=== PATIENT | female | born 1940 | race Native Hawaiian/Other Pacific Islander ===

== ENCOUNTER 2018-01-27 16:09 | Inpatient (IN) | payer MEDICARE, MEDICAID ==
[2018-01-27 20:04] LABS: BASO % 0.2 % (0.0-2.0); EOS % 0.1 % (0.0-4.0); HEMOGLOBIN 13.9 g/dL (11.0-16.0); LYMPH # 1.6 K/uL (1.0-4.3); LYMPH % 13.6 % (20.0-40.0); MEAN CELL VOLUME 84.2 fL (81.0-99.0); MEAN CORPUSCULAR HEMOGLOBIN 27.5 pg (27.0-31.0); MEAN CORPUSCULAR HGB CONC 32.7 g/dL (33.0-37.0); MEAN PLATELET VOLUME 7.9 fL (7.2-11.7); MONO # 0.4 K/uL (0.0-0.8); MONO % 3.3 % (0.0-10.0); NEUT # 9.4 K/uL (1.8-7.0); NEUT % 82.8 % (50.0-75.0); NRBC % 0.1 % (0.0-2.0); RBC 5.06 Mil/uL (3.80-5.20); RED CELL DISTRIBUTION WIDTH 13.6 % (11.5-14.5); WHITE BLOOD COUNT 11.4 K/uL (4.8-10.8)
[2018-01-27 20:12] LABS: ALB/GLOB RATIO 1.1 (1.0-2.1); ALBUMIN 4.4 g/dL (3.5-5.0); ALT/SGPT 34 U/L (9-52); AST/SGOT 32 U/L (14-36); BLOOD UREA NITROGEN 16 mg/dL (7-17); CALCIUM 10.7 mg/dl (8.6-10.4); GFR AFRICAN-AMERICAN 44; GFR NON-AFRICAN AMERICAN 36; INR 0.9; PROTHROMBIN TIME 10.5 SECONDS (9.7-12.2)
[2018-01-27] MEDS ORDERED: Azithromycin 500 MG in Sodium Chloride 0.9% 250 ML IV STA (20:53)
[2018-01-27] MEDS ORDERED: cefTRIAXone IV 1 gm in Dextros 50 ML IV ONE (20:53)
--- NOTE | 2018-01-27 20:54 | C.PDOC ---
History Of Present Illness 77yo female, referred to ER by Dr. Mick Benavidez for evaluation of shortness of breath and non-productive cough for the past week. She also reports associated subjective fever. No other complaints. Time Seen by Provider: 01/27/18 19:05 Chief Complaint (Nursing): Shortness Of Breath History Per: Patient History/Exam Limitations: no limitations Onset/Duration Of Symptoms: Days Current Symptoms Are (Timing): Still Present Past Medical History Reviewed: Historical Data, Nursing Documentation, Vital Signs Vital Signs: Last Vital Signs Temp 97.5 F L 01/27/18 16:36 Pulse 96 H 01/27/18 16:36 Resp 24 01/27/18 18:20 BP 150/71 01/27/18 16:36 Pulse Ox 94 L 01/27/18 23:09 - Medical History PMH: HTN Surgical History: No Surg Hx Family History: States: No Known Family Hx - Social History Hx Alcohol Use: No Hx Substance Use: No Review Of Systems Except As Marked, All Systems Reviewed And Found Negative. Constitutional: Positive for: Fever (subjective) Respiratory: Positive for: Cough, Shortness of Breath. Negative for: Sputum Physical Exam - Physical Exam Appears: Non-toxic Skin: Normal Color Head: Atraumatic, Normacephalic Eye(s): bilateral: Normal Inspection Neck: Normal ROM, Supple Cardiovascular: Rhythm Regular Respiratory: Rhonchi (scattered), Other (increased breath sounds bilaterally) Gastrointestinal/Abdominal: Normal Exam Extremity: Normal ROM, No Pedal Edema Neurological/Psych: Oriented x3, Normal Speech, Normal Cognition ED Course And Treatment - Laboratory Results Result Diagrams: 01/27/18 19:52 01/27/18 19:52 Lab Interpretation: Abnormal ECG: Interpreted By Mt ECG Rhythm: Sinus Rhythm ECG Interpretation: Normal Rate From EC O2 Sat by Pulse Oximetry: 94 Pulse Ox Interpretation: Abnormal - Radiology CXR: Interpreted by Mt CXR Interpretation: Yes: Infiltrates (+ patchy) Reevaluation Time: 20:54 Reassessment Condition: Improved - Physician Consult Information Outcome Of Conversation: 1930, 2100 d/w Dr. Mick Benavidez, ok to admit. Medical Decision Making Medical Decision Making: d-dimer acceptably low consider advance age of 77, and c/w pna and not PE Prior studies reviewed from September 2017 and shows normal perfusion study with 85% injection fraction. Disposition Doctor Will See Patient In The: Hospital Counseled Patient/Family Regarding: Studies Performed, Diagnosis - Disposition Disposition: HOSPITALIZED Disposition Time: 20:55 Condition: GOOD - Clinical Impression Clinical Impression: Pneumonia - Scribe Statement The provider has reviewed the documentation as recorded by the Scribe (Yanet Posada) Provider Attestation: All medical record entries made by the Brigidibe were at my direction and personally dictated by me. I have reviewed the chart and agree that the record accurately reflects my personal performance of the history, physical exam, medical decision making, and the department course for this patient. I have also personally directed, reviewed, and agree with the discharge instructions and disposition.
[2018-01-27] MEDS ORDERED: cefTRIAXone IV 1 gm in Dextros 50 ML IVPB ONE (22:53)
--- NOTE | 2018-01-28 09:03 | RAD ---
PROCEDURE: CHEST RADIOGRAPH, 1 VIEW HISTORY: Shortness of breath COMPARISON: None available. FINDINGS: LUNGS: There is there are low lung volumes and interstitial thickening predominantly in the lower lobes. There is bibasilar atelectasis the PLEURA: No pneumothorax or pleural fluid seen. CARDIOVASCULAR: Normal. OSSEOUS STRUCTURES: No significant abnormalities. VISUALIZED UPPER ABDOMEN: Normal. OTHER FINDINGS: None. IMPRESSION: Low lung volumes and interstitial thickening in the lower lobes could represent interstitial fibrosis however interstitial pneumonitis/edema is also a consideration. Follow-up is advised. No focal consolidation.
[2018-01-28] MEDS: cefTRIAXone IV 1 gm in Dextros 50 ML IVPB SCH (10:45)
[2018-01-28] MEDS: Levothyroxine 75 MCG TAB PO SCH (10:45)
--- NOTE | 2018-01-28 12:03 | CT ---
PROCEDURE: CT Chest without contrast HISTORY: pulmonary fibrosis,pneumonia COMPARISON: Plain radiographs from 01/27/2018. TECHNIQUE: Contiguous axial images were obtained through the chest without intravenous contrast enhancement. Sagittal and coronal reconstructions were performed. Radiation dose (DLP): 222.15 mGy-cm. This CT exam was performed using one or more of the following dose reduction techniques: Automated exposure control, adjustment of the mA and/or kV according to patient size, and/or use of iterative reconstruction technique. FINDINGS: LUNGS: There is severe paraseptal emphysema in the lungs with upper lobe predominance. There is also patchy ground-glass attenuation in both lungs. There is mild interlobular septal thickening. There are peripheral reticular margins particularly in the lower lobes and mild honeycombing in the lung bases. There is also architectural distortion in the lungs. There is a triangular subpleural focal consolidation in the lateral lingula. MEDIASTINUM: The aorta is normal in caliber. There is mild enlargement of the pulmonary trunk. The heart is normal in size. No pericardial effusion. There are subcentimeter mediastinal lymph nodes, likely reactive. PLEURA: No pleural fluid. No pneumothorax. BONES: No fracture. No destructive lesion. Within normal limits for the patient's age. UPPER ABDOMEN: Both adrenal glands are normal in size. The right kidney is atrophic. OTHER FINDINGS: None. IMPRESSION: 1. Wedge-shaped subpleural consolidation in the lateral lingula most compatible with pneumonia. Follow-up to resolution is advised. 2. Findings are most compatible with interstitial pulmonary fibrosis superimposed on a background of COPD. 3. Patchy ground-glass attenuation in the lungs may represent nonspecific infection/ inflammation, alveolar fibrosis or alveolar pulmonary edema. 4. Mild pulmonary hypertension.
[2018-01-29] MEDS ORDERED: guaiFENesin DM 200 mg-20 mg/10 ml UD PO STA (02:06)
[2018-01-29] MEDS: Levothyroxine 75 MCG TAB PO SCH (05:48)
--- NOTE | 2018-01-29 06:49 | HP ---
HISTORY OF PRESENT ILLNESS: A 77-year-old female who was admitted on 01/27/2018. She was referred by me and sent to the ER after seen in the office where she was found to be tachypneic, short of breath, and in mild respiratory distress. She was sent to the ER and care was discussed with the patient's family and ER physician. She was found to have pneumonia. She also has a history of severe interstitial lung disease, biopsy proven in the many years in the past. She has been seen in followup by Dr. Rueda. She has a history of hypertension and osteoporosis. PAST MEDICAL HISTORY: Admitted in the past with COPD. Has been followed by Dr. Rueda. FAMILY HISTORY: Negative for premature coronary artery disease. Lives with her . PERSONAL HISTORY: Does not smoke. Does not drink. ALLERGIES: DENIED. REVIEW OF SYSTEMS: Mild shortness of breath, cough. No chest pains. No hemoptysis. No joint pains. History of occasional back pains. No visual disturbances. No fever. No chills. No urinary complaints. No history of angina or documented [place]. No history of TIAs or CVS. No urinary complaints. No history of depression. PHYSICAL EXAMINATION GENERAL: Shows elderly female, chronically sick looking in mild respiratory distress. VITAL SIGNS: Blood pressure is 150/70, heart rate of 102 regular, respiratory rate of 24, and temperature of 97.5. HEENT: Head is normocephalic. Eyes, no pallor, no icterus. NECK: Supple. LUNGS: Shows scattered rhonchi all over the lung chaidez. HEART: Heart sounds are distended. Tachycardiac. No definite murmurs or gallops. ABDOMEN: Soft. EXTREMITIES: Unremarkable. Distal pulses are intact. NEUROLOGICAL: No focal sign. The patient is awake, alert, and oriented x3. LABORATORY DATA: White count is 11.4. DIAGNOSTIC DATA: Chest x-ray shows patchy infiltrates. CT also shows the same patchy infiltrates. ASSESSMENT: A 77-year-old female with a history of pneumonitis. Severe chronic obstructive pulmonary disease and interstitial lung disease, pulmonary fibrosis. PLAN: Pulmonary followup. ID consultation. Blood cultures. Prognosis remains poor. Mick Benavidez MD
--- NOTE | 2018-01-29 07:23 | CON ---
DATE: HISTORY OF PRESENT ILLNESS: Ms. Reynaga is 77-year-old female with history of pulmonary fibrosis, COPD for several years. The patient came to hospital with shortness of breath, weakness, fatigue, which has been worsening for the last few months. The patient was tried on several medications for pulmonary fibrosis without significant results. The patient . PHYSICAL EXAMINATION: GENERAL: The patient is awake, alert, and oriented. VITAL SIGNS: Temperature 98 and pulse 90. HEENT: Within normal limits. NECK: Supple. CHEST: Symmetrical. Decreased air entry. HEART: Regular. ABDOMEN: Soft. EXTREMITIES: No edema. LABORATORY DATA: Chest x-ray bilateral chronic infiltrate, possible superimposed left-sided pneumonia. ASSESSMENT AND PLAN: The patient will get bronchodilators, antibiotics, IV steroids, and will start . Get a CT of the chest. Emerita Rueda MD
--- NOTE | 2018-01-29 10:34 | CP.PCM.PN ---
Subjective - Date & Time of Evaluation Date of Evaluation: 01/29/18 Time of Evaluation: 10:33 - Subjective Subjective: sob +,cough ++. Objective - Vital Signs/Intake and Output Vital Signs (last 24 hours): Temp Pulse Resp BP Pulse Ox 97.7 F 88 20 143/75 95 01/29/18 09:08 01/29/18 09:08 01/29/18 09:08 01/29/18 09:08 01/29/18 09:08 - Medications Medications: Current Medications Amlodipine Besylate (Norvasc) 5 mg PO DAILY [facility] Last Admin: 01/28/18 10:45 Dose: 5 mg Heparin Sodium (Porcine) (Heparin) 5,000 units SC Q12 [facility] Last Admin: 01/28/18 22:10 Dose: 5,000 units Ceftriaxone Sodium (Rocephin Iv 1 Gm Duplex) 50 mls @ 100 mls/hr IVPB DAILY [facility] Last Admin: 01/28/18 10:45 Dose: 100 mls/hr Azithromycin 500 mg/ Sodium (Chloride) 250 mls @ 250 mls/hr IVPB DAILY [facility] Levothyroxine Sodium (Synthroid) 75 mcg PO DAILY@0630 [facility] Last Admin: 01/29/18 05:48 Dose: 75 mcg Pneumococcal Polyvalent Vaccine (Pneumovax 23 Vaccine) 0.5 ml IM .ONCE ONE Stop: 01/30/18 10:01 Prednisone (Prednisone Tab) 10 mg PO BID [facility] Rosuvastatin Calcium (Crestor) 5 mg PO DAILY [facility] Last Admin: 01/28/18 10:00 Dose: Not Given Fluticasone/Salmeterol (Advair Diskus 500/50) 1 puff INH RQ12 [facility] - Labs Labs: 01/27/18 19:52 01/27/18 19:52 PT 10.5 SECONDS (9.7-12.2) 01/27/18 19:52 INR 0.9 01/27/18 19:52 APTT 28 SECONDS (21-34) 01/27/18 19:52 - Constitutional Appears: No Acute Distress, Chronically Ill - Eye Exam Eye Exam: Normal appearance - Neck Exam Neck Exam: Normal Inspection - Respiratory Exam Respiratory Exam: Rhonchi - Cardiovascular Exam Cardiovascular Exam: REGULAR RHYTHM - GI/Abdominal Exam GI & Abdominal Exam: Soft - Extremities Exam Extremities Exam: absent: Pedal Edema - Neurological Exam Neurological Exam: Alert, Oriented x3 Assessment and Plan - Assessment and Plan (Free Text) Assessment: pneumonia,seen by dr [email or web address].
--- NOTE | 2018-01-29 10:43 | CP.PCM.CON ---
History of Present Illness - History of Present Illness History of Present Illness: Pulmonary consult; covering Dr Mcintosh Past Patient History - Past Social History Smoking Status: Never Smoked - CARDIAC Hx Cardiac Disorders: Yes Hx Hypertension: Yes - PULMONARY Hx Respiratory Disorders: No - NEUROLOGICAL Hx Neurological Disorder: No - HEENT Hx HEENT Problems: No - RENAL Hx Chronic Kidney Disease: No - ENDOCRINE/METABOLIC Hx Endocrine Disorders: Yes Hx Hypothyroidism: Yes - HEMATOLOGICAL/ONCOLOGICAL Hx Blood Disorders: No - INTEGUMENTARY Hx Dermatological Problems: No - MUSCULOSKELETAL/RHEUMATOLOGICAL Hx Musculoskeletal Disorders: No Hx Falls: No - GASTROINTESTINAL Hx Gastrointestinal Disorders: No - GENITOURINARY/GYNECOLOGICAL Hx Genitourinary Disorders: No - PSYCHIATRIC Hx Substance Use: No - SURGICAL HISTORY Hx Surgeries: No - ANESTHESIA Hx Anesthesia: No Hx Anesthesia Reactions: No Hx Malignant Hyperthermia: No Has any member of the family had a problem w/ anesthesia?: No Meds Allergies/Adverse Reactions: Allergies Allergy/AdvReac Type Severity Reaction Status Date / Time No Known Allergies Allergy Verified 01/27/18 16:39 - Medications Medications: Current Medications Amlodipine Besylate (Norvasc) 5 mg PO DAILY [facility] Last Admin: 01/28/18 10:45 Dose: 5 mg Heparin Sodium (Porcine) (Heparin) 5,000 units SC Q12 [facility] Last Admin: 01/28/18 22:10 Dose: 5,000 units Ceftriaxone Sodium (Rocephin Iv 1 Gm Duplex) 50 mls @ 100 mls/hr IVPB DAILY [facility] Last Admin: 01/28/18 10:45 Dose: 100 mls/hr Azithromycin 500 mg/ Sodium (Chloride) 250 mls @ 250 mls/hr IVPB DAILY [facility] Levothyroxine Sodium (Synthroid) 75 mcg PO DAILY@0630 [facility] Last Admin: 01/29/18 05:48 Dose: 75 mcg Pneumococcal Polyvalent Vaccine (Pneumovax 23 Vaccine) 0.5 ml IM .ONCE ONE Stop: 01/30/18 10:01 Prednisone (Prednisone Tab) 10 mg PO BID [facility] Rosuvastatin Calcium (Crestor) 5 mg PO DAILY [facility] Last Admin: 01/28/18 10:00 Dose: Not Given Fluticasone/Salmeterol (Advair Diskus 500/50) 1 puff INH RQ12 [facility] Results - Vital Signs Recent Vital Signs: Last Vital Signs Temp 97.7 F 02/28/18 09:08 Pulse 88 01/29/18 09:08 Resp 20 01/29/18 09:08 BP 143/75 01/29/18 09:08 Pulse Ox 95 01/29/18 09:08 - Labs Result Diagrams: 01/27/18 19:52 01/27/18 19:52
[2018-01-29] MEDS: Azithromycin 500 MG in Sodium Chloride 0.9% 250 ML IVPB SCH (11:04)
[2018-01-29] MEDS: cefTRIAXone IV 1 gm in Dextros 50 ML IVPB SCH (11:14)
--- NOTE | 2018-01-29 11:32 | RAD ---
HISTORY: COMPARISON: CT chest without contrast from 01/28/2018 TECHNIQUE: Chest PA and lateral FINDINGS: LINES AND TUBES: None. LUNG AND PLEURA: The lungs are well inflated. Again seen is diffuse interstitial thickening. There is emphysema in the upper lobes. There is persistent consolidation in the left mid lung. No pleural effusions or pneumothorax. HEART AND MEDIASTINUM: The heart is not enlarged. The hilar and mediastinal contours are within normal limits. SKELETAL STRUCTURES: The bony structures are within normal limits for the patient's age. VISUALIZED UPPER ABDOMEN: Normal. OTHER FINDINGS: None. IMPRESSION: No change in consolidation in the left mid lung. Diffuse interstitial fibrosis superimposed on a background of COPD.
--- NOTE | 2018-01-29 12:15 | CP.PCM.CON ---
History of Present Illness - History of Present Illness History of Present Illness: 77yo female, referred to ER by Dr. Mick Benavidez for evaluation of shortness of breath and non-productive cough for the past week. Past Patient History - Past Social History Smoking Status: Never Smoked - CARDIAC Hx Cardiac Disorders: Yes Hx Hypertension: Yes - PULMONARY Hx Respiratory Disorders: No - NEUROLOGICAL Hx Neurological Disorder: No - HEENT Hx HEENT Problems: No - RENAL Hx Chronic Kidney Disease: No - ENDOCRINE/METABOLIC Hx Endocrine Disorders: Yes Hx Hypothyroidism: Yes - HEMATOLOGICAL/ONCOLOGICAL Hx Blood Disorders: No - INTEGUMENTARY Hx Dermatological Problems: No - MUSCULOSKELETAL/RHEUMATOLOGICAL Hx Musculoskeletal Disorders: No Hx Falls: No - GASTROINTESTINAL Hx Gastrointestinal Disorders: No - GENITOURINARY/GYNECOLOGICAL Hx Genitourinary Disorders: No - PSYCHIATRIC Hx Substance Use: No - SURGICAL HISTORY Hx Surgeries: No - ANESTHESIA Hx Anesthesia: No Hx Anesthesia Reactions: No Hx Malignant Hyperthermia: No Has any member of the family had a problem w/ anesthesia?: No Meds Allergies/Adverse Reactions: Allergies Allergy/AdvReac Type Severity Reaction Status Date / Time No Known Allergies Allergy Verified 01/27/18 16:39 - Medications Medications: Current Medications Amlodipine Besylate (Norvasc) 5 mg PO DAILY [facility] Last Admin: 01/29/18 11:01 Dose: 5 mg Heparin Sodium (Porcine) (Heparin) 5,000 units SC Q12 [facility] Last Admin: 01/29/18 11:02 Dose: 5,000 units Ceftriaxone Sodium (Rocephin Iv 1 Gm Duplex) 50 mls @ 100 mls/hr IVPB DAILY [facility] Last Admin: 01/29/18 11:14 Dose: 100 mls/hr Azithromycin 500 mg/ Sodium (Chloride) 250 mls @ 250 mls/hr IVPB DAILY [facility] Last Admin: 01/29/18 11:04 Dose: 250 mls/hr Levothyroxine Sodium (Synthroid) 75 mcg PO DAILY@0630 [facility] Last Admin: 01/29/18 05:48 Dose: 75 mcg Pneumococcal Polyvalent Vaccine (Pneumovax 23 Vaccine) 0.5 ml IM .ONCE ONE Stop: 01/30/18 10:01 Prednisone (Prednisone Tab) 10 mg PO BID [facility] Last Admin: 01/29/18 11:01 Dose: 10 mg Rosuvastatin Calcium (Crestor) 5 mg PO DAILY [facility] Last Admin: 01/29/18 11:00 Dose: Not Given Fluticasone/Salmeterol (Advair Diskus 500/50) 1 puff INH RQ12 [facility] Results - Vital Signs Recent Vital Signs: Last Vital Signs Temp 97.7 F 01/29/18 09:08 Pulse 88 01/29/18 09:08 Resp 20 01/29/18 09:08 BP 143/75 01/29/18 09:08 Pulse Ox 95 01/29/18 09:08 - Labs Result Diagrams: 01/27/18 19:52 01/27/18 19:52
[2018-01-29] MEDS: Fluticasone-Salmeterol 500-50mcg Diskus INH SCH ×2 (13:27→20:25)
--- NOTE | 2018-01-29 19:03 | CP.PCM.CON ---
History of Present Illness - History of Present Illness History of Present Illness: 77yo female, referred to ER by Dr. Mick Benavidez for evaluation of shortness of breath and non-productive cough for the past week. Failed out pt rx cxr + for wedge shaped infiltrate some ground glass opacities cultures , serologies ordered Dr Mcintosh on board cont iv antibiotics Review of Systems - Constitutional Constitutional: As Per HPI - EENT Eyes: absent: As Per HPI, Blind Spots, Blurred Vision, Change in Vision, Decreased Night Vision, Diplopia, Discharge, Dry Eye, Exophthalmos, Floaters, Irritation, Itchy Eyes, Loss of Peripheral Vision, Pain, Photophobia, Requires Corrective Lenses, Sees Flashes, Spots in Vision, Tunnel Vision, Other Visual Disturbances, Loss of Vision, Other Ears: absent: As Per HPI, Decreased Hearing, Ear Discharge, Ear Pain, Tinnitus, Abnormal Hearing, Disequilibrium, Dizziness, Other Nose/Mouth/Throat: absent: As Per HPI, Epistaxis, Nasal Congestion, Nasal Discharge, Nasal Obstruction, Nasal Trauma, Nose Pain, Post Nasal Drip, Sinus Pain, Sinus Pressure, Bleeding Gums, Change in Voice, Dental Pain, Dry Mouth, Dysphagia, Halitosis, Hoarsness, Lip Swelling, Mouth Lesions, Mouth Pain, Odynophagia, Sore Throat, Throat Swelling, Tongue Swelling, Facial Pain, Neck Pain, Neck Mass, Other - Cardiovascular Cardiovascular: absent: As Per HPI, Acrocyanosis, Chest Pain, Chest Pain at Rest , Chest Pain with Activity, Claudication, Diaphoresis, Dyspnea, Dyspnea on Exertion, Edema, Irregular Heart Rhythm, Pain Radiating to Arm/Neck/Jaw, Leg Edema, Leg Ulcers, Lightheadedness, Orthopnea, Palpitations, Paroxysmal Nocturnal Dyspnea, Pedal Edema, Radiating Pain, Rapid Heart Rate, Slow Heart Rate, Syncope, Other - Respiratory Respiratory: As Per HPI, Cough, Dyspnea, Dyspnea on Exertion. absent: Hemoptysis - Gastrointestinal Gastrointestinal: absent: As Per HPI, Abdominal Pain, Belching, Bloating, Change in Bowel Habits, Change in Stool Character, Coffee Ground Emesis, Constipation, Cramping, Diarrhea, Dyspepsia, Dysphagia, Early Satiety, Excessive Flatus, Fecal Incontinence, Heartburn, Hematemesis, Hematochezia, Loose Stools, Melena, Nausea, Odynophagia, Temesmus, Vomiting, Other - Genitourinary Genitourinary: absent: As Per HPI, Change in Urinary Stream, Difficulty Urinating, Dysuria, Flank Pain, Hematuria, Pyuria, Nocturia, Urinary Incontinence, Urinary Frequency, Urinary Hesitance, Urinary Urgency, Voiding Freq/Small Amts, Freq UTI, Hx Renal/Bladder Calculi, Hx /Renal Surgery, Bladder Distension, Other - Reproductive: Female Reproductive:Female: absent: As Per HPI, Amenorrhea, Amenorrhea/ Control, Currently Menstual, Cycle <21 Days, Cycle >35 Days, Cycle Variable, Menses 1-7 Days, Menses >/= 8 Days, Menses Variable, Cycle > 4 Weeks Between, No Menses for 6 Months, Heavy Menses, Light Menses, Normal Menses, Spotting Between Cycles , S/P Hysterectomy, Menopausal, Post Menopausal, Premenarche, Abnormal Vaginal Bleeding, Dysmenorrhea, Dyspareunia, Genital Lesions, Genital Pruritis, Pelvic Pain, Prolapse Symptoms, Sexual Dysfunction, Vaginal Discharge, Vaginal Dryness , Vaginal Odor, Vaginal Pruritis, Other - Menstruation Menstruation: absent: As Per HPI, Amenorrhea, Amenorrhea/ Control, Currently Menstual, Cycle <21 Days, Cycle >35 Days, Cycle Variable, Menses 1-7 Days, Menses >/= 8 Days, Menses Variable, Cycle > 4 Weeks Between, No Menses for 6 Months, Heavy Menses, Light Menses, Normal Menses, Spotting Between Cycles , S/P Hysterectomy, Menopausal, Post Menopausal, Premenarche, Abnormal Vaginal Bleeding, Dysmenorrhea, Other - Musculoskeletal Musculoskeletal: absent: As Per HPI, Abnormal Gait, Arthralgias, Atrophy, Back Pain, Deformity, Joint Swelling, Limited Range of Motion, Loss of Height, Muscle Cramps, Muscle Weakness, Myalgias, Neck Pain, Numbness, Radiating Pain into Limb, Stiffness, Tingling, Other - Integumentary Integumentary: absent: As Per HPI, Acne, Alopecia, Bleeding Lesions, Change in Hair, Change in Nails, Change in Pigmentation, Changing Lesions, Dry Skin, Erythema, Furuncle, Hirsutism, Lesions, New Lesions, Non-Healing Lesions, Photosensitivity, Pruritus, Rash, Skin Pain, Skin Ulcer, Sores, Striae, Swelling , Unusual Bruising, Wounds, Jaundice, Other - Neurological Neurological: absent: As Per HPI, Abnormal Gait, Abnormal Hearing, Abnormal Movements, Abnormal Speech, Behavioral Changes, Burning Sensations, Confusion, Convulsions, Disequilibrium, Dizziness, Numbness, Focal Weakness, Frequent Falls , Headaches, Lack of Coordination, Loss of Vision, Memory Loss, Paresthesias, Radicular Pain, Restless Legs, Sensory Deficit, Syncope, Tingling, Tremor, Vertigo, Weakness, Other Visual Disturbances, Other - Psychiatric Psychiatric: absent: As Per HPI, Abnormal Sleep Pattern, Anhedonia, Anxiety, Auditory Hallucinations, Behavioral Changes, Change in Appetite, Change in Libido, Confusion, Depression, Difficulty Concentrating, Hallucinations, Homicidal Ideation, Hopelessness, Irritability, Memory Loss, Mood Swings, Panic Attacks, Paranoia, Suicidal Ideation, Visual Hallucinations, Tactile Hallucinations, Other - Endocrine Endocrine: absent: As Per HPI, Change in Body Appearance, Change in Libido, Cold Intolorance, Deepening of Voice, Excessive Sweating, Fatigue, Flushing, Heat Intolorance, Increase in Ring/Shoe/Hat Size, Palpitations, Polydipsia, Polyphagia, Polyuria, Other - Hematologic/Lymphatic Hematologic: absent: As Per HPI, Easy Bleeding, Easy Bruising, Lymphadenopathy, Other Past Patient History - Past Social History Smoking Status: Never Smoked - CARDIAC Hx Cardiac Disorders: Yes Hx Hypertension: Yes - PULMONARY Hx Respiratory Disorders: No - NEUROLOGICAL Hx Neurological Disorder: No - HEENT Hx HEENT Problems: No - RENAL Hx Chronic Kidney Disease: No - ENDOCRINE/METABOLIC Hx Endocrine Disorders: Yes Hx Hypothyroidism: Yes - HEMATOLOGICAL/ONCOLOGICAL Hx Blood Disorders: No - INTEGUMENTARY Hx Dermatological Problems: No - MUSCULOSKELETAL/RHEUMATOLOGICAL Hx Musculoskeletal Disorders: No Hx Falls: No - GASTROINTESTINAL Hx Gastrointestinal Disorders: No - GENITOURINARY/GYNECOLOGICAL Hx Genitourinary Disorders: No - PSYCHIATRIC Hx Substance Use: No - SURGICAL HISTORY Hx Surgeries: No - ANESTHESIA Hx Anesthesia: No Hx Anesthesia Reactions: No Hx Malignant Hyperthermia: No Has any member of the family had a problem w/ anesthesia?: No Meds Allergies/Adverse Reactions: Allergies Allergy/AdvReac Type Severity Reaction Status Date / Time No Known Allergies Allergy Verified 01/27/18 16:39 - Medications Medications: Current Medications Amlodipine Besylate (Norvasc) 5 mg PO DAILY [facility] Last Admin: 01/29/18 11:01 Dose: 5 mg Guaifenesin (Robitussin) 100 mg PO Q4H PRN PRN Reason: Cough Heparin Sodium (Porcine) (Heparin) 5,000 units SC Q12 [facility] Last Admin: 01/29/18 11:02 Dose: 5,000 units Ceftriaxone Sodium (Rocephin Iv 1 Gm Duplex) 50 mls @ 100 mls/hr IVPB DAILY [facility] Last Admin: 01/29/18 11:14 Dose: 100 mls/hr Azithromycin 500 mg/ Sodium (Chloride) 250 mls @ 250 mls/hr IVPB DAILY [facility] Last Admin: 01/29/18 11:04 Dose: 250 mls/hr Levothyroxine Sodium (Synthroid) 75 mcg PO DAILY@0630 [facility] Last Admin: 01/29/18 05:48 Dose: 75 mcg Pneumococcal Polyvalent Vaccine (Pneumovax 23 Vaccine) 0.5 ml IM .ONCE ONE Stop: 01/30/18 10:01 Prednisone (Prednisone Tab) 10 mg PO BID [facility] Last Admin: 01/29/18 17:21 Dose: 10 mg Rosuvastatin Calcium (Crestor) 5 mg PO [facility] Fluticasone/Salmeterol (Advair Diskus 500/50) 1 puff INH RQ12 [facility] Last Admin: 01/29/18 13:27 Dose: 1 puff Physical Exam - Constitutional Appears: Non-toxic, Chronically Ill - Head Exam Head Exam: NORMOCEPHALIC - Eye Exam Eye Exam: PERRL. absent: Scleral icterus - ENT Exam ENT Exam: Mucous Membranes Dry, Normal External Ear Exam, Normal Oropharynx - Neck Exam Neck exam: Negative for: Lymphadenopathy, Thyromegaly - Respiratory Exam Respiratory Exam: Decreased Breath Sounds, Prolonged Expiratory Phase, Rhonchi - Cardiovascular Exam Cardiovascular Exam: REGULAR RHYTHM, +S1, +S2 - GI/Abdominal Exam GI & Abdominal Exam: Diminished Bowel Sounds, Soft. absent: Tenderness - Rectal Exam Rectal Exam: Deferred - Exam Exam: NORMAL INSPECTION - Extremities Exam Extremities exam: Positive for: pedal pulses present. Negative for: calf tenderness, pedal edema, tenderness - Back Exam Back exam: absent: CVA tenderness (L), CVA tenderness (R), paraspinal tenderness - Neurological Exam Neurological exam: Alert, CN II-XII Intact, Oriented x3, Reflexes Normal - Psychiatric Exam Psychiatric exam: Depressed - Skin Skin Exam: Dry, Intact Results - Vital Signs Recent Vital Signs: Last Vital Signs Temp 97.6 F 01/29/18 15:15 Pulse 91 H 01/29/18 15:15 Resp 21 01/29/18 15:15 BP 138/68 01/29/18 15:15 Pulse Ox 97 01/29/18 15:15 - Labs Result Diagrams: 01/27/18 19:52 01/27/18 19:52 Assessment & Plan (1) Pneumonia Status: Acute - Assessment and Plan (Free Text) Assessment: await cultures, serologies add coverage for atypicals pulm eval
[2018-01-29] MEDS: guaiFENesin 100 mg/5 ml Syrup UD PO PRN (21:49)
[2018-01-30] MEDS: Levothyroxine 75 MCG TAB PO SCH (05:50)
[2018-01-30] MEDS: guaiFENesin 100 mg/5 ml Syrup UD PO PRN (06:15)
--- NOTE | 2018-01-30 08:56 | PN ---
DATE: 01/29/2018. SUBJECTIVE: Ms. Reynaga showing improvement, supportive care. Has IV Azithromycin. Continue steroids. CT of chest reviewed shows severe pulmonary fibrosis as well as infiltrate. ASSESSMENT: Pulmonary fibrosis severe, superimposed pneumonia. PLAN: Continue antibiotics, ceftriaxone, Azithromycin, IV steroids, O2 bronchodilators. Emerita Rueda MD
[2018-01-30] MEDS ORDERED: Pneumococcal 23-Valent Vaccine IM ONE (10:00)
[2018-01-30] MEDS: Fluticasone-Salmeterol 500-50mcg Diskus INH SCH ×2 (10:10→20:28)
[2018-01-30] MEDS: cefTRIAXone IV 1 gm in Dextros 50 ML IVPB SCH (10:39)
[2018-01-30] MEDS: Azithromycin 500 MG in Sodium Chloride 0.9% 250 ML IVPB SCH (11:19)
--- NOTE | 2018-01-30 12:30 | CP.PCM.PN ---
Subjective - Date & Time of Evaluation Date of Evaluation: 01/30/18 Time of Evaluation: 12:28 - Subjective Subjective: sob ++.low o2 sat. Objective - Vital Signs/Intake and Output Vital Signs (last 24 hours): Temp Pulse Resp BP Pulse Ox 98.4 F 87 20 134/73 95 01/30/18 09:01 01/30/18 09:01 01/30/18 09:01 01/30/18 09:01 01/30/18 09:01 Intake and Output: 01/30/18 01/30/18 06:59 18:59 Intake Total 550 Balance 550 - Medications Medications: Current Medications Amlodipine Besylate (Norvasc) 5 mg PO DAILY [facility] Last Admin: 01/30/18 10:39 Dose: 5 mg Guaifenesin (Robitussin) 100 mg PO Q4H PRN PRN Reason: Cough Last Admin: 01/30/18 06:15 Dose: 100 mg Heparin Sodium (Porcine) (Heparin) 5,000 units SC Q12 [facility] Last Admin: 01/30/18 10:39 Dose: 5,000 units Ceftriaxone Sodium (Rocephin Iv 1 Gm Duplex) 50 mls @ 100 mls/hr IVPB DAILY [facility] Last Admin: 01/30/18 10:39 Dose: 100 mls/hr Azithromycin 500 mg/ Sodium (Chloride) 250 mls @ 250 mls/hr IVPB DAILY [facility] Last Admin: 01/30/18 11:19 Dose: 250 mls/hr Levothyroxine Sodium (Synthroid) 75 mcg PO DAILY@0630 [facility] Last Admin: 01/30/18 05:50 Dose: 75 mcg Prednisone (Prednisone Tab) 10 mg PO BID [facility] Last Admin: 01/30/18 10:39 Dose: 10 mg Rosuvastatin Calcium (Crestor) 5 mg PO HS [facility] Last Admin: 01/29/18 21:48 Dose: 5 mg Fluticasone/Salmeterol (Advair Diskus 500/50) 1 puff INH RQ12 [facility] Last Admin: 01/30/18 10:10 Dose: 1 puff - Labs Labs: 01/27/18 19:52 01/27/18 19:52 PT 10.5 SECONDS (9.7-12.2) 01/27/18 19:52 INR 0.9 01/27/18 19:52 APTT 28 SECONDS (21-34) 01/27/18 19:52 - Constitutional Appears: No Acute Distress, Chronically Ill - Neck Exam Neck Exam: Normal Inspection - Respiratory Exam Respiratory Exam: Rhonchi - Cardiovascular Exam Cardiovascular Exam: REGULAR RHYTHM - GI/Abdominal Exam GI & Abdominal Exam: Soft - Extremities Exam Extremities Exam: absent: Pedal Edema - Neurological Exam Neurological Exam: Alert, Oriented x3 Assessment and Plan - Assessment and Plan (Free Text) Plan: pneumonia,copd,pul fibrosis.x ray is same.ct iv antibiotics
--- NOTE | 2018-01-30 19:02 | CP.PCM.PN ---
Subjective - Date & Time of Evaluation Date of Evaluation: 01/30/18 Time of Evaluation: 09:00 - Subjective Subjective: awake alert less SOB no fever today tolerating O2 NC Dr Mcintosh on board Objective - Vital Signs/Intake and Output Vital Signs (last 24 hours): Temp Pulse Resp BP Pulse Ox 98 F 87 21 134/73 95 01/30/18 15:15 01/30/18 15:28 01/30/18 15:15 01/30/18 15:28 01/30/18 15:28 Intake and Output: 01/30/18 01/31/18 18:59 06:59 Intake Total 660 Balance 660 - Medications Medications: Current Medications Albuterol/Ipratropium (Duoneb 3 Mg/0.5 Mg (3 Ml) Ud) 3 ml INH RQ6 [facility] Amlodipine Besylate (Norvasc) 5 mg PO DAILY [facility] Last Admin: 01/30/18 10:39 Dose: 5 mg Guaifenesin (Robitussin) 100 mg PO Q4H PRN PRN Reason: Cough Last Admin: 01/30/18 06:15 Dose: 100 mg Heparin Sodium (Porcine) (Heparin) 5,000 units SC Q12 [facility] Last Admin: 01/30/18 10:39 Dose: 5,000 units Ceftriaxone Sodium (Rocephin Iv 1 Gm Duplex) 50 mls @ 100 mls/hr IVPB DAILY [facility] Last Admin: 01/30/18 10:39 Dose: 100 mls/hr Azithromycin 500 mg/ Sodium (Chloride) 250 mls @ 250 mls/hr IVPB DAILY [facility] Last Admin: 01/30/18 11:19 Dose: 250 mls/hr Levothyroxine Sodium (Synthroid) 75 mcg PO DAILY@0630 [facility] Last Admin: 01/30/18 05:50 Dose: 75 mcg Prednisone (Prednisone Tab) 10 mg PO BID [facility] Last Admin: 01/30/18 18:09 Dose: 10 mg Rosuvastatin Calcium (Crestor) 5 mg PO HS [facility] Last Admin: 01/29/18 21:48 Dose: 5 mg Fluticasone/Salmeterol (Advair Diskus 500/50) 1 puff INH RQ12 [facility] Last Admin: 01/30/18 10:10 Dose: 1 puff - Labs Labs: 01/27/18 19:52 01/27/18 19:52 PT 10.5 SECONDS (9.7-12.2) 01/27/18 19:52 INR 0.9 01/27/18 19:52 APTT 28 SECONDS (21-34) 01/27/18 19:52 - Constitutional Appears: Non-toxic, Chronically Ill - Head Exam Head Exam: NORMOCEPHALIC - Eye Exam Eye Exam: PERRL. absent: Scleral icterus - ENT Exam ENT Exam: Mucous Membranes Dry - Neck Exam Neck Exam: absent: Lymphadenopathy - Respiratory Exam Respiratory Exam: Decreased Breath Sounds, Rhonchi - Cardiovascular Exam Cardiovascular Exam: REGULAR RHYTHM, +S1, +S2 - GI/Abdominal Exam GI & Abdominal Exam: Distended - Rectal Exam Rectal Exam: Deferred - Exam Exam: NORMAL INSPECTION - Extremities Exam Extremities Exam: absent: Pedal Edema - Back Exam Back Exam: absent: CVA tenderness (L), CVA tenderness (R) Assessment and Plan (1) Pneumonia Status: Acute - Assessment and Plan (Free Text) Assessment: cont zmax and rocephin bronchodilators
[2018-01-30] MEDS: Albuterol-Ipratrop 3 mg / 0.5 (3 ml) UD INH SCH (20:29)
[2018-01-31] MEDS: Albuterol-Ipratrop 3 mg / 0.5 (3 ml) UD INH SCH ×4 (01:15→19:23)
[2018-01-31] MEDS: guaiFENesin 100 mg/5 ml Syrup UD PO PRN ×3 (01:48→20:43)
[2018-01-31] MEDS: Levothyroxine 75 MCG TAB PO SCH (05:31)
--- NOTE | 2018-01-31 07:54 | PN ---
DATE: The patient has improving shortness of breath. The patient is on bronchodilator, supportive care. Emerita Rueda MD
[2018-01-31 08:40] VITALS: RESP 20
[2018-01-31] MEDS: Fluticasone-Salmeterol 500-50mcg Diskus INH SCH ×2 (08:46→19:24)
[2018-01-31] MEDS: Azithromycin 500 MG in Sodium Chloride 0.9% 250 ML IVPB SCH (10:16)
--- NOTE | 2018-01-31 12:08 | CP.PCM.PN ---
Subjective - Date & Time of Evaluation Date of Evaluation: 01/31/18 Time of Evaluation: 12:07 - Subjective Subjective: cough,sob. Objective - Vital Signs/Intake and Output Vital Signs (last 24 hours): Temp Pulse Resp BP Pulse Ox 98.1 F 87 20 129/74 97 01/31/18 08:39 01/31/18 08:39 01/31/18 08:39 01/31/18 08:39 01/31/18 08:39 Intake and Output: 01/31/18 01/31/18 06:59 18:59 Intake Total 120 Balance 120 - Medications Medications: Current Medications Albuterol/Ipratropium (Duoneb 3 Mg/0.5 Mg (3 Ml) Ud) 3 ml INH RQ6 [facility] Last Admin: 01/31/18 08:46 Dose: 3 ml Amlodipine Besylate (Norvasc) 5 mg PO DAILY [facility] Last Admin: 01/31/18 10:14 Dose: 5 mg Guaifenesin (Robitussin) 100 mg PO Q4H PRN PRN Reason: Cough Last Admin: 01/31/18 05:31 Dose: 100 mg Heparin Sodium (Porcine) (Heparin) 5,000 units SC Q12 [facility] Last Admin: 01/31/18 10:15 Dose: 5,000 units Azithromycin 500 mg/ Sodium (Chloride) 250 mls @ 250 mls/hr IVPB DAILY [facility] Last Admin: 01/31/18 10:16 Dose: 250 mls/hr Ceftriaxone Sodium 1 gm/ (Sodium Chloride) 100 mls @ 200 mls/hr IVPB DAILY [facility] Last Admin: 01/31/18 09:43 Dose: 200 mls/hr Levothyroxine Sodium (Synthroid) 75 mcg PO DAILY@0630 [facility] Last Admin: 01/31/18 05:31 Dose: 75 mcg Prednisone (Prednisone Tab) 10 mg PO BID [facility] Last Admin: 01/31/18 10:14 Dose: 10 mg Rosuvastatin Calcium (Crestor) 5 mg PO HS [facility] Last Admin: 01/29/18 21:48 Dose: 5 mg Fluticasone/Salmeterol (Advair Diskus 500/50) 1 puff INH RQ12 [facility] Last Admin: 01/31/18 08:46 Dose: 1 puff - Labs Labs: 01/27/18 19:52 01/27/18 19:52 PT 10.5 SECONDS (9.7-12.2) 01/27/18 19:52 INR 0.9 01/27/18 19:52 APTT 28 SECONDS (21-34) 01/27/18 19:52 - Constitutional Appears: No Acute Distress, Chronically Ill - Head Exam Head Exam: NORMOCEPHALIC - ENT Exam ENT Exam: Normal Exam - Respiratory Exam Respiratory Exam: Rhonchi - Cardiovascular Exam Cardiovascular Exam: REGULAR RHYTHM - GI/Abdominal Exam GI & Abdominal Exam: Soft - Neurological Exam Neurological Exam: Alert, Oriented x3 Assessment and Plan - Assessment and Plan (Free Text) Plan: pneumonia.pul fibrosis.ct iv antibiotics.
[2018-01-31 13:50] LABS: BASO % 0.2 % (0.0-2.0); EOS % 0.4 % (0.0-4.0); HEMOGLOBIN 12.1 g/dL (11.0-16.0); LYMPH # 0.4 K/uL (1.0-4.3); LYMPH % 5.3 % (20.0-40.0); MEAN CELL VOLUME 83.9 fL (81.0-99.0); MEAN CORPUSCULAR HEMOGLOBIN 28.1 pg (27.0-31.0); MEAN CORPUSCULAR HGB CONC 33.5 g/dL (33.0-37.0); MEAN PLATELET VOLUME 7.8 fL (7.2-11.7); MONO # 0.4 K/uL (0.0-0.8); MONO % 4.7 % (0.0-10.0); NEUT # 7.2 K/uL (1.8-7.0); NEUT % 89.4 % (50.0-75.0); NRBC % 0.1 % (0.0-2.0); RBC 4.31 Mil/uL (3.80-5.20); RED CELL DISTRIBUTION WIDTH 13.6 % (11.5-14.5)
[2018-01-31 13:53] LABS: PLATELET COUNT 196 K/uL (130-400)
[2018-01-31 14:06] LABS: ALB/GLOB RATIO 1.1 (1.0-2.1); ALBUMIN 3.6 g/dL (3.5-5.0); CALCIUM 9.1 mg/dl (8.6-10.4)
[2018-01-31 14:34] LABS: LYMPHOCYTE 4 % (20-40); MONOCYTE 2 % (0-10); NEUTROPHIL 94 % (50-75); PLATELET ESTIMATE NORMAL (NORMAL); TOTAL CELLS COUNTED 100
[2018-01-31] MEDS ORDERED: Potassium Chloride 20 mEq/15 ml LIQ UD PO ONE (16:00)
--- NOTE | 2018-01-31 18:31 | CP.PCM.PN ---
Subjective - Date & Time of Evaluation Date of Evaluation: 01/31/18 Time of Evaluation: 07:00 - Subjective Subjective: afeb alert on nasal O2 denies chest pain CO2 sl high no ABG to compare will discuss with Dr Mcintosh May need PFT cultures so far neg Objective - Vital Signs/Intake and Output Vital Signs (last 24 hours): Temp Pulse Resp BP Pulse Ox 98.2 F 89 20 131/67 95 01/31/18 16:25 01/31/18 16:34 01/31/18 16:25 01/31/18 16:34 01/31/18 16:34 Intake and Output: 01/31/18 01/31/18 06:59 18:59 Intake Total 120 660 Balance 120 660 - Medications Medications: Current Medications Albuterol/Ipratropium (Duoneb 3 Mg/0.5 Mg (3 Ml) Ud) 3 ml INH RQ6 [facility] Last Admin: 01/31/18 13:48 Dose: 3 ml Amlodipine Besylate (Norvasc) 5 mg PO DAILY [facility] Last Admin: 01/31/18 10:14 Dose: 5 mg Guaifenesin (Robitussin) 100 mg PO Q4H PRN PRN Reason: Cough Last Admin: 01/31/18 05:31 Dose: 100 mg Azithromycin 500 mg/ Sodium (Chloride) 250 mls @ 250 mls/hr IVPB DAILY [facility] Last Admin: 01/31/18 10:16 Dose: 250 mls/hr Ceftriaxone Sodium 1 gm/ (Sodium Chloride) 100 mls @ 200 mls/hr IVPB DAILY [facility] Last Admin: 01/31/18 09:43 Dose: 200 mls/hr Levothyroxine Sodium (Synthroid) 75 mcg PO DAILY@0630 [facility] Last Admin: 01/31/18 05:31 Dose: 75 mcg Prednisone (Prednisone Tab) 10 mg PO BID [facility] Last Admin: 01/31/18 17:53 Dose: 10 mg Rosuvastatin Calcium (Crestor) 5 mg PO HS [facility] Last Admin: 01/29/18 21:48 Dose: 5 mg Fluticasone/Salmeterol (Advair Diskus 500/50) 1 puff INH RQ12 [facility] Last Admin: 01/31/18 08:46 Dose: 1 puff - Labs Labs: 01/31/18 13:45 01/31/18 13:45 PT 10.5 SECONDS (9.7-12.2) 01/27/18 19:52 INR 0.9 01/27/18 19:52 APTT 28 SECONDS (21-34) 01/27/18 19:52 - Constitutional Appears: Non-toxic, Chronically Ill - Head Exam Head Exam: NORMOCEPHALIC - Eye Exam Eye Exam: PERRL - ENT Exam ENT Exam: Mucous Membranes Dry - Neck Exam Neck Exam: absent: Lymphadenopathy - Respiratory Exam Respiratory Exam: Decreased Breath Sounds, Rhonchi - Cardiovascular Exam Cardiovascular Exam: REGULAR RHYTHM, +S1, +S2 - GI/Abdominal Exam GI & Abdominal Exam: Distended, Soft. absent: Tenderness - Rectal Exam Rectal Exam: Deferred - Exam Exam: NORMAL INSPECTION - Extremities Exam Extremities Exam: absent: Pedal Edema - Back Exam Back Exam: absent: CVA tenderness (L), CVA tenderness (R) - Neurological Exam Neurological Exam: Alert, Awake, Oriented x3 Neuro motor strength exam: Left Upper Extremity: 5, Right Upper Extremity: 5, Left Lower Extremity: 5, Right Lower Extremity: 5 - Psychiatric Exam Psychiatric exam: Normal Mood - Skin Skin Exam: Dry Assessment and Plan (1) Pneumonia Status: Acute - Assessment and Plan (Free Text) Assessment: afeb alert on nasal O2 denies chest pain CO2 sl high no ABG to compare will discuss with Dr Mcintosh May need PFT cultures so far neg
[2018-02-01] MEDS: Albuterol-Ipratrop 3 mg / 0.5 (3 ml) UD INH SCH ×3 (01:42→13:01)
[2018-02-01] MEDS: guaiFENesin 100 mg/5 ml Syrup UD PO PRN ×4 (02:16→13:22)
[2018-02-01] MEDS: Levothyroxine 75 MCG TAB PO SCH (05:58)
[2018-02-01] MEDS: Fluticasone-Salmeterol 500-50mcg Diskus INH SCH (08:21)
[2018-02-01 08:26] LABS: BASO % 0.3 % (0.0-2.0); EOS % 0.4 % (0.0-4.0); HEMOGLOBIN 11.9 g/dL (11.0-16.0); LYMPH # 0.8 K/uL (1.0-4.3); LYMPH % 11.4 % (20.0-40.0); MEAN CELL VOLUME 85.1 fL (81.0-99.0); MEAN CORPUSCULAR HGB CONC 32.9 g/dL (33.0-37.0); MEAN PLATELET VOLUME 7.9 fL (7.2-11.7); MONO # 0.7 K/uL (0.0-0.8); NEUT # 5.2 K/uL (1.8-7.0); NEUT % 76.9 % (50.0-75.0); RBC 4.26 Mil/uL (3.80-5.20); RED CELL DISTRIBUTION WIDTH 13.8 % (11.5-14.5); WHITE BLOOD COUNT 6.8 K/uL (4.8-10.8)
[2018-02-01 08:44] LABS: ALB/GLOB RATIO 1.2 (1.0-2.1); ALBUMIN 3.8 g/dL (3.5-5.0); CALCIUM 9.6 mg/dl (8.6-10.4)
--- NOTE | 2018-02-01 10:22 | CP.PCM.PN ---
Subjective - Date & Time of Evaluation Date of Evaluation: 02/01/18 Time of Evaluation: 10:20 - Subjective Subjective: sob less Objective - Vital Signs/Intake and Output Vital Signs (last 24 hours): Temp Pulse Resp BP Pulse Ox 98.3 F 87 20 127/75 97 02/01/18 07:36 02/01/18 07:36 02/01/18 07:36 02/01/18 07:36 02/01/18 07:36 Intake and Output: 02/01/18 02/01/18 06:59 18:59 Intake Total 300 Balance 300 - Medications Medications: Current Medications Albuterol/Ipratropium (Duoneb 3 Mg/0.5 Mg (3 Ml) Ud) 3 ml INH RQ6 [facility] Last Admin: 02/01/18 08:21 Dose: 3 ml Amlodipine Besylate (Norvasc) 5 mg PO DAILY [facility] Last Admin: 02/01/18 10:11 Dose: 5 mg Guaifenesin (Robitussin) 100 mg PO Q4H PRN PRN Reason: Cough Last Admin: 02/01/18 10:11 Dose: 100 mg Heparin Sodium (Porcine) (Heparin) 5,000 units SC Q12H [facility] Last Admin: 02/01/18 10:12 Dose: 5,000 units Azithromycin 500 mg/ Sodium (Chloride) 250 mls @ 250 mls/hr IVPB DAILY [facility] Last Admin: 01/31/18 10:16 Dose: 250 mls/hr Ceftriaxone Sodium 1 gm/ (Sodium Chloride) 100 mls @ 200 mls/hr IVPB DAILY [facility] Last Admin: 02/01/18 10:11 Dose: 200 mls/hr Levothyroxine Sodium (Synthroid) 75 mcg PO DAILY@0630 [facility] Last Admin: 02/01/18 05:58 Dose: 75 mcg Prednisone (Prednisone Tab) 10 mg PO BID [facility] Last Admin: 02/01/18 10:11 Dose: 10 mg Rosuvastatin Calcium (Crestor) 5 mg PO HS [facility] Last Admin: 01/31/18 22:31 Dose: 5 mg Fluticasone/Salmeterol (Advair Diskus 500/50) 1 puff INH RQ12 [facility] Last Admin: 02/01/18 08:21 Dose: 1 puff - Labs Labs: 02/01/18 08:18 03/03/18 08:18 PT 10.5 SECONDS (9.7-12.2) 01/27/18 19:52 INR 0.9 01/27/18 19:52 APTT 28 SECONDS (21-34) 01/27/18 19:52 - Head Exam Head Exam: ATRAUMATIC, NORMAL INSPECTION, NORMOCEPHALIC - Eye Exam Eye Exam: EOMI, Normal appearance, PERRL Pupil Exam: NORMAL ACCOMODATION, PERRL - ENT Exam ENT Exam: Mucous Membranes Moist, Normal Exam Assessment and Plan - Assessment and Plan (Free Text) Assessment: cxray no change need to be repeated as outpatient. can be discarged on po levaquin
[2018-02-01] MEDS: Azithromycin 500 MG in Sodium Chloride 0.9% 250 ML IVPB SCH (10:50)
[2018-02-01 14:13] LABS: ABG ALLEN TEST POS; ARTERIAL BLOOD GAS HCO3 23.8 mmol/L (21-28); ARTERIAL BLOOD GAS PCO2 37 mm/Hg (35-45); ARTERIAL BLOOD GAS PO2 92 mm/Hg (80-100)
[2018-02-01 16:50] VITALS: BP 125/71; PULSE 107; TEMP 97.4; O2SAT 95
--- NOTE | 2018-02-02 14:07 | DS ---
HISTORY OF PRESENT ILLNESS: A 77-year-old female with history of severe pulmonary fibrosis, COPD, was brought in with left middle lobe pneumonia. HOSPITAL COURSE: She was admitted to Telemetry. Sinus rhythm was noted initially. Pulmonary consult with Dr. Rueda and Infectious consultation with Dr. Parsons was obtained. IV antibiotic was given with improvement. At this point, she is stable to be discharged on p.o. Augmentin 875 p.o. twice a day and prednisone 10 mg p.o. once a day. She will continue with the blood pressure medication, Synthroid and Advair. In view of her severe pulmonary fibrosis, overall prognosis remains extremely poor. The patient and the family are well aware of this. She will follow up with Dr. Rueda in a week's time. FINAL DIAGNOSES: Pneumonia, chronic obstructive pulmonary disease, hypertension, pulmonary fibrosis, hypothyroidism. DISCHARGE DIET: 2 g sodium. Prescriptions were called into the pharmacy. Mick Benavidez MD
--- NOTE | 2018-02-03 08:09 | PN ---
DATE: The patient is improving. Shortness of breath is less, has switched to p.o. prednisone. Emerita Rueda MD
== END 2018-02-01 18:10 | disposition home or self-care (01) | DRG 190 ==
LOC: C.ER 16:09 → C.9E 20:51 → C.3T 01-28 14:18
PROVIDERS: ADMIT Internal Medicine Cardiovascular Disease; ATTEND Internal Medicine Cardiovascular Disease
DX: J44.0 Chronic obstructive pulmonary disease with (acute) lower respiratory infection (principal); J18.9 Pneumonia, unspecified organism; J84.10 Pulmonary fibrosis, unspecified; I10 Essential (primary) hypertension; E03.9 Hypothyroidism, unspecified; M81.0 Age-related osteoporosis without current pathological fracture

== ENCOUNTER 2018-02-14 08:58 | Inpatient (IN) | payer MEDICARE, MEDICAID ==
[2018-02-14] MEDS ORDERED: cefTRIAXone IV 1 gm in Dextros 50 ML IV STA (09:21)
[2018-02-14] MEDS ORDERED: Albuterol 0.083% Inhal Sol (2.5 mg/3 mL) UD INH STA (09:24)
--- NOTE | 2018-02-14 09:25 | C.PDOC ---
History Of Present Illness 77 y/o female with history of HTN, High cholesterol and Hypothyroidism presents to ED with complaints of sob worsening for " few months" and persistent productive cough. Patient was admitted to ED on 01/2018 for pneumonia and reports she completed antibiotics given at discharge. Patient's PMD is Dr. Mick solis who is currently not available which prompted visit to ED for further evaluation. Patient denies fever, chills, nausea, vomiting, leg swelling or any other complaints at this time. Chief Complaint (Nursing): Shortness Of Breath History Per: Patient History/Exam Limitations: no limitations Onset/Duration Of Symptoms: Days Current Symptoms Are (Timing): Still Present Past Medical History Reviewed: Historical Data, Nursing Documentation, Vital Signs Vital Signs: Last Vital Signs Temp 98.3 F 02/14/18 12:18 Pulse 111 H 02/14/18 12:18 Resp 24 02/14/18 12:18 BP 126/63 02/14/18 12:18 Pulse Ox 94 L 02/14/18 12:18 - Medical History PMH: HTN, Hypercholesterolemia, Hypothyroidism, Pneumonia Surgical History: No Surg Hx Family History: States: No Known Family Hx - Social History Hx Alcohol Use: No Hx Substance Use: No - Immunization History Hx Tetanus Toxoid Vaccination: No Hx Influenza Vaccination: Yes Hx Pneumococcal Vaccination: No Review Of Systems Constitutional: Negative for: Fever, Chills Cardiovascular: Negative for: Chest Pain Respiratory: Positive for: Cough, Shortness of Breath Gastrointestinal: Negative for: Nausea, Vomiting Skin: Negative for: Rash Physical Exam - Physical Exam Appears: Non-toxic, Other (Actively coughing) Skin: Warm, Dry, No Rash Head: Atraumatic, Normacephalic Oral Mucosa: Moist Neck: Normal ROM, Supple Cardiovascular: Rhythm Regular, Other (tachycardic ) Respiratory: Rales (bilateral), Rhonchi (course on inspiration), No Wheezing, Other (tachypneic. Crepitation R>L) Gastrointestinal/Abdominal: Soft, No Tenderness, No Guarding, No Rebound Extremity: No Pedal Edema, Capillary Refill (<2 seconds) Neurological/Psych: Oriented x3, Normal Speech ED Course And Treatment - Laboratory Results Result Diagrams: 02/14/18 09:46 02/14/18 09:46 ECG: Interpreted By Me, Viewed By Me ECG Rhythm: Sinus Tachycardia Rate From EC (BPM ) O2 Sat by Pulse Oximetry: 97 (RA) Medical Decision Making Medical Decision Making: Impression: Plan: Disposition - Disposition Disposition: HOSPITALIZED Disposition Time: 13:47 Condition: GUARDED - Clinical Impression Clinical Impression: Pneumonia - Scribe Statement The provider has reviewed the documentation as recorded by the Brigidibchristina Culp All medical record entries made by the Brigidibchristina were at my direction and personally dictated by me. I have reviewed the chart and agree that the record accurately reflects my personal performance of the history, physical exam, medical decision making, and the department course for this patient. I have also personally directed, reviewed, and agree with the discharge instructions and disposition.
[2018-02-14] MEDS ORDERED: Albuterol 0.083% Inhal Sol (2.5 mg/3 mL) UD ONE (09:45)
[2018-02-14 09:58] LABS: BASO % 0.3 % (0.0-2.0); EOS # 0.1 K/uL (0.0-0.7); EOS % 0.6 % (0.0-4.0); HEMOGLOBIN 13.5 g/dL (11.0-16.0); LYMPH # 1.3 K/uL (1.0-4.3); LYMPH % 12.6 % (20.0-40.0); MEAN CORPUSCULAR HEMOGLOBIN 27.5 pg (27.0-31.0); MEAN PLATELET VOLUME 8.3 fL (7.2-11.7); MONO # 0.9 K/uL (0.0-0.8); MONO % 8.8 % (0.0-10.0); NEUT # 8.2 K/uL (1.8-7.0); NEUT % 77.7 % (50.0-75.0); NRBC % 0.1 % (0.0-2.0); RBC 4.91 Mil/uL (3.80-5.20); RED CELL DISTRIBUTION WIDTH 13.3 % (11.5-14.5)
[2018-02-14 10:00] LABS: MEAN CELL VOLUME 83.1 fL (81.0-99.0); WHITE BLOOD COUNT 10.5 K/uL (4.8-10.8)
[2018-02-14] MEDS ORDERED: Azithromycin 500 MG in Sodium Chloride 0.9% 250 ML IVPB ONE (10:30)
[2018-02-14 10:51] LABS: SQUAMOUS EPITHIAL < 1 /hpf (0-5); URINE BACTERIA RARE (<OCC); URINE BILIRUBIN NEGATIVE (NEGATIVE); URINE BLOOD NEGATIVE (NEGATIVE); URINE CLARITY Clear (Clear); URINE COLOR Straw (YELLOW); URINE GLUCOSE (UA) NORMAL (Normal); URINE LEUKOCYTE ESTERASE 2+ Leu/uL (Negative); URINE PROTEIN NEGATIVE (NEGATIVE); URINE UROBILINOGEN NORMAL mg/dL (0.2-1.0)
[2018-02-14 11:02] LABS: ABG ALLEN TEST POS; ARTERIAL BLOOD GAS HEMOGLOBIN 12.5 g/dL (11.7-17.4); ARTERIAL BLOOD GAS O2 SAT 95.1 % (95-98); ARTERIAL BLOOD GAS PCO2 33 mm/Hg (35-45); ARTERIAL BLOOD GAS PH 7.46 (7.35-7.45); ARTERIAL BLOOD GAS PO2 59 mm/Hg (80-100); ARTERIAL BLOOD GAS TCO2 24.5 mmol/L (22-28)
--- NOTE | 2018-02-14 12:57 | RAD ---
PROCEDURE: CHEST RADIOGRAPH, 1 VIEW HISTORY: Pneumonia COMPARISON: 01/29/2018 FINDINGS: LUNGS: Stable interstitial lung disease bilaterally. Portable technique, suboptimal inspiratory effort accentuating pulmonary markings. PLEURA: No pneumothorax or pleural fluid seen. CARDIOVASCULAR: No radiographic findings to suggest acute or significant cardiovascular disease. OSSEOUS STRUCTURES: No significant abnormalities. VISUALIZED UPPER ABDOMEN: Normal. OTHER FINDINGS: None. IMPRESSION: No significant interval change compared to the prior examination(s).
[2018-02-14] MEDS: Albuterol-Ipratrop 3 mg / 0.5 (3 ml) UD INH SCH ×2 (13:53→19:51)
[2018-02-14] MEDS: Pantoprazole 40 mg EC Tab PO SCH (13:53)
[2018-02-14] MEDS: Promethazine 12.5 mg/10 ml Syrup PO PRN ×2 (15:28→19:52)
[2018-02-14] MEDS ORDERED: Promethazine 12.5 mg/10 ml Syrup PO SCH (18:00)
[2018-02-14] MEDS: MethylPREDNISolone 40 mg Vial IVP SCH (18:39)
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
[2018-02-14] MEDS ORDERED: Fluticasone-Salmeterol 250-50mcg Diskus INH SCH (20:00)
--- NOTE | 2018-02-15 00:03 | HP ---
HISTORY OF PRESENT ILLNESS: This is a 77-year-old [place] female, came to the emergency room with history of worsening shortness of breath and cough. The patient was recently admitted to the [facility] last month and was treated for pneumonia. The patient was given antibiotic to take at home, which we completed. Upon completion of all the treatment, she started to have shortness of breath and cough. The patient has productive cough and sputum is whitish in color. The patient denies having any fever or chills. No history of nausea, vomiting, or swelling of the legs. The patient was treated by Dr. Patric Benavidez. PAST MEDICAL HISTORY: History of hypertension, hypercholesterolemia, hypothyroidism, and pneumonia. FAMILY HISTORY: No known inherited disease. ALLERGIES: The patient is not allergic to any medications. SOCIAL HISTORY: Nonsmoker, nonalcoholic. No IVDA. REVIEW OF SYSTEMS: RESPIRATORY SYSTEM: Positive for shortness of breath and cough, productive sputum. CARDIAC SYSTEM: Negative for chest pain. GI SYSTEM: Negative for nausea, vomiting, abdominal pain. LIVESTOCK AGENT: No focal neurologic complaints offered. EXTREMITIES: No edema of the legs. : No urinary complaints. No fever. PSYCHIATRIC: The patient is stable. All other systems are negative. MEDICATIONS: The patient's medications are reviewed by me. PHYSICAL: EXAMINATION: General: This is a 77-year-old [place] Female, tachypneic, dyspneic, with temperature 98 degree Fahrenheit, pulse 111 per minute, respirations 20, and blood pressure 155/77 mmHg. Pulse ox is 97% on room air. HEENT: Normal. JVP is flat. Carotid, no bruit. LUNGS: Has bilateral crepitations and wheezing. CARDIOPULMONARY: Heart, S1 and S2 normal, tachycardic. No gallop, no murmur. ABDOMEN: Soft, nontender, no organomegaly. LIVESTOCK AGENT: No focal neurologic deficit. EXTREMITIES: No edema of the legs. LABORATORY DATA: On admission, EKGs showing normal sinus rhythm with left ventricular hypertrophy. Chest x-ray is positive for pneumonia. Lab work is grossly within normal limits. IMPRESSION: Tachypnea. Bilateral pneumonia. Acute exacerbation of chronic obstructive pulmonary disease. Hypertension. PLAN: The patient will be admitted to the floor. We will give IV antibiotics. Other workup as needed. Duran Reynaga MD [facility] # [id number]
[2018-02-15] MEDS: Albuterol-Ipratrop 3 mg / 0.5 (3 ml) UD INH SCH ×4 (01:32→20:53)
[2018-02-15] MEDS: MethylPREDNISolone 40 mg Vial IVP SCH ×3 (01:51→18:17)
[2018-02-15] MEDS: Levothyroxine 75 MCG TAB PO SCH (05:44)
[2018-02-15] MEDS: Pantoprazole 40 mg EC Tab PO SCH (10:27)
--- NOTE | 2018-02-15 10:38 | CP.PCM.PN ---
Subjective - Date & Time of Evaluation Date of Evaluation: 02/15/18 Time of Evaluation: 10:36 - Subjective Subjective: LESS SOB. COUGH PRESENT. NO CP. Objective - Vital Signs/Intake and Output Vital Signs (last 24 hours): Temp Pulse Resp BP Pulse Ox 98.2 F 91 H 20 110/67 95 02/15/18 08:00 02/15/18 08:00 02/15/18 08:00 02/15/18 08:00 02/15/18 08:00 Intake and Output: 02/15/18 02/15/18 06:59 18:59 Intake Total 200 Output Total 200 Balance 0 - Medications Medications: Current Medications Albuterol/Ipratropium (Duoneb 3 Mg/0.5 Mg (3 Ml) Ud) 3 ml INH RQ6 [facility] Last Admin: 02/15/18 09:06 Dose: Not Given Amlodipine Besylate (Norvasc) 10 mg PO DAILY [facility] Last Admin: 02/15/18 10:27 Dose: 10 mg Heparin Sodium (Porcine) (Heparin) 5,000 units SC Q12 [facility] Last Admin: 02/15/18 10:26 Dose: 5,000 units Azithromycin 500 mg/ Sodium (Chloride) 250 mls @ 250 mls/hr IVPB Q24H [facility] PRN Reason: Protocol Ceftriaxone Sodium 1 gm/ (Sodium Chloride) 100 mls @ 100 mls/hr IVPB DAILY [facility] PRN Reason: Protocol Last Admin: 02/15/18 10:26 Dose: 100 mls/hr Levothyroxine Sodium (Synthroid) 75 mcg PO 0630 [facility] Last Admin: 02/15/18 05:44 Dose: 75 mcg Methylprednisolone (Solu-Medrol) 40 mg IVP Q8H [facility] Last Admin: 02/15/18 10:26 Dose: 40 mg Pantoprazole Sodium (Protonix Ec Tab) 40 mg PO DAILY [facility] Last Admin: 02/15/18 10:27 Dose: 40 mg Pneumococcal Polyvalent Vaccine (Pneumovax 23 Vaccine) 0.5 ml IM .ONCE ONE Stop: 02/17/18 10:01 Promethazine HCl (Phenergan Syrup) 12.5 mg PO Q4 PRN PRN Reason: Cough Last Admin: 02/14/18 19:52 Dose: 12.5 mg Rosuvastatin Calcium (Crestor) 5 mg PO HS [facility] Last Admin: 02/14/18 22:33 Dose: 5 mg Fluticasone/Salmeterol (Advair Diskus 250/50) 1 puff INH RQ12 [facility] - Labs Labs: 02/14/18 09:46 02/14/18 09:46 - Constitutional Appears: No Acute Distress, Chronically Ill - Eye Exam Eye Exam: EOMI, Normal appearance, PERRL Pupil Exam: NORMAL ACCOMODATION, PERRL - ENT Exam ENT Exam: Mucous Membranes Moist, Normal Exam - Neck Exam Neck Exam: Full ROM, Normal Inspection. absent: Lymphadenopathy - Respiratory Exam Respiratory Exam: Clear to Ausculation Bilateral, NORMAL BREATHING PATTERN - Cardiovascular Exam Cardiovascular Exam: REGULAR RHYTHM, +S1, +S2. absent: Murmur - GI/Abdominal Exam GI & Abdominal Exam: Soft, Normal Bowel Sounds. absent: Tenderness - Extremities Exam Extremities Exam: Full ROM, Normal Capillary Refill, Normal Inspection. absent : Joint Swelling, Pedal Edema - Neurological Exam Neurological Exam: Alert, Awake, CN II-XII Intact, Normal Gait, Oriented x3 - Psychiatric Exam Psychiatric exam: Normal Affect, Normal Mood Assessment and Plan - Assessment and Plan (Free Text) Assessment: ACUTE COPD. H/O PULMONARY FIBROSIS. PNEUMONIA. Plan: CT PRESENT TREATMENT.
[2018-02-15] MEDS: Azithromycin 500 MG in Sodium Chloride 0.9% 250 ML IVPB SCH (11:38)
[2018-02-15] MEDS: Promethazine 12.5 mg/10 ml Syrup PO PRN ×2 (14:09→22:20)
[2018-02-16] MEDS: MethylPREDNISolone 40 mg Vial IVP SCH ×3 (01:30→17:38)
[2018-02-16] MEDS: Albuterol-Ipratrop 3 mg / 0.5 (3 ml) UD INH SCH ×4 (01:43→19:49)
[2018-02-16] MEDS: Levothyroxine 75 MCG TAB PO SCH (05:30)
[2018-02-16] MEDS: Pantoprazole 40 mg EC Tab PO SCH (10:03)
[2018-02-16] MEDS: Azithromycin 500 MG in Sodium Chloride 0.9% 250 ML IVPB SCH (11:56)
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
[2018-02-16] MEDS: Fluticasone-Salmeterol 250-50mcg Diskus INH SCH (19:50)
[2018-02-16] MEDS: Promethazine 12.5 mg/10 ml Syrup PO PRN (21:00)
[2018-02-17] MEDS: Promethazine 12.5 mg/10 ml Syrup PO PRN ×3 (00:20→21:52)
[2018-02-17] MEDS: MethylPREDNISolone 40 mg Vial IVP SCH ×3 (01:30→17:42)
[2018-02-17] MEDS: Albuterol-Ipratrop 3 mg / 0.5 (3 ml) UD INH SCH ×4 (01:35→20:10)
[2018-02-17] MEDS: Levothyroxine 75 MCG TAB PO SCH (05:35)
[2018-02-17 07:19] LABS: BASO % 0.1 % (0.0-2.0); LYMPH # 0.3 K/uL (1.0-4.3); MEAN CELL VOLUME 82.5 fL (81.0-99.0); MEAN CORPUSCULAR HEMOGLOBIN 26.6 pg (27.0-31.0); MEAN CORPUSCULAR HGB CONC 32.2 g/dL (33.0-37.0); MEAN PLATELET VOLUME 8.4 fL (7.2-11.7); MONO # 0.4 K/uL (0.0-0.8); MONO % 2.8 % (0.0-10.0); NEUT # 13.4 K/uL (1.8-7.0); NEUT % 95.1 % (50.0-75.0); NRBC % 0.1 % (0.0-2.0); PLATELET COUNT 221 K/uL (130-400); RBC 3.84 Mil/uL (3.80-5.20); RED CELL DISTRIBUTION WIDTH 13.4 % (11.5-14.5); WHITE BLOOD COUNT 14.1 K/uL (4.8-10.8)
[2018-02-17 07:24] LABS: HEMOGLOBIN 10.2 g/dL (11.0-16.0)
[2018-02-17 07:47] LABS: ALBUMIN 3.3 g/dL (3.5-5.0); CALCIUM 9.3 mg/dl (8.6-10.4)
[2018-02-17] MEDS: Fluticasone-Salmeterol 250-50mcg Diskus INH SCH ×2 (08:24→20:10)
[2018-02-17 09:02] LABS: ANISOCYTOSIS SLIGHT; BURR CELLS SLIGHT; HYPOCHROMIC SLIGHT; LYMPHOCYTE 3 % (20-40); MONOCYTE 2 % (0-10); NEUTROPHIL 95 % (50-75); PLATELET ESTIMATE NORMAL (NORMAL); POIKILOCYTOSIS SLIGHT; TARGET CELLS SLIGHT; TOTAL CELLS COUNTED 100
[2018-02-17] MEDS ORDERED: Influenza Vaccine 60 mcg/0.5 mL SYR (4YR UP) IM ONE (10:00)
[2018-02-17] MEDS ORDERED: Pneumococcal 23-Valent Vaccine IM ONE (10:00)
[2018-02-17] MEDS: Pantoprazole 40 mg EC Tab PO SCH (10:01)
[2018-02-17] MEDS: Azithromycin 500 MG in Sodium Chloride 0.9% 250 ML IVPB SCH (11:18)
--- NOTE | 2018-02-17 12:03 | PN ---
DATE: 02/16/2018 SUBJECTIVE: The patient complains of weakness, fatigue, and shortness of breath, supportive care. Emerita Rueda MD
--- NOTE | 2018-02-17 12:29 | CP.PCM.PN ---
Subjective - Date & Time of Evaluation Date of Evaluation: 02/16/18 Time of Evaluation: 11:20 - Subjective Subjective: CONDITION SAME. MILD SOB. COUGH. PUL FIBROSIS. COPD. Objective - Vital Signs/Intake and Output Vital Signs (last 24 hours): Temp Pulse Resp BP Pulse Ox 97.8 F 99 H 20 111/64 93 L 02/17/18 08:16 02/17/18 08:16 02/17/18 08:16 02/17/18 08:16 02/17/18 12:13 Intake and Output: 02/17/18 02/17/18 06:59 18:59 Intake Total 320 Balance 320 - Medications Medications: Current Medications Albuterol/Ipratropium (Duoneb 3 Mg/0.5 Mg (3 Ml) Ud) 3 ml INH RQ6 [facility] Last Admin: 02/17/18 08:24 Dose: 3 ml Amlodipine Besylate (Norvasc) 10 mg PO DAILY [facility] Last Admin: 02/17/18 10:01 Dose: 10 mg Heparin Sodium (Porcine) (Heparin) 5,000 units SC Q12 [facility] Last Admin: 02/17/18 10:00 Dose: 5,000 units Azithromycin 500 mg/ Sodium (Chloride) 250 mls @ 250 mls/hr IVPB Q24H [facility] PRN Reason: Protocol Last Admin: 02/17/18 11:18 Dose: 250 mls/hr Ceftriaxone Sodium 1 gm/ (Sodium Chloride) 100 mls @ 100 mls/hr IVPB DAILY [facility] PRN Reason: Protocol Last Admin: 02/17/18 10:09 Dose: 100 mls/hr Levothyroxine Sodium (Synthroid) 75 mcg PO 0630 [facility] Last Admin: 02/17/18 05:35 Dose: 75 mcg Methylprednisolone (Solu-Medrol) 40 mg IVP Q12H [facility] Pantoprazole Sodium (Protonix Ec Tab) 40 mg PO DAILY [facility] Last Admin: 02/17/18 10:01 Dose: 40 mg Promethazine HCl (Phenergan Syrup) 12.5 mg PO Q4 PRN PRN Reason: Cough Last Admin: 02/17/18 10:01 Dose: 12.5 mg Rosuvastatin Calcium (Crestor) 5 mg PO HS [facility] Last Admin: 02/16/18 21:09 Dose: 5 mg Fluticasone/Salmeterol (Advair Diskus 250/50) 1 puff INH RQ12 [facility] Last Admin: 02/17/18 08:24 Dose: 1 puff - Labs Labs: 02/17/18 07:06 02/17/18 07:06 - Constitutional Appears: Chronically Ill - Eye Exam Eye Exam: EOMI, Normal appearance, PERRL Pupil Exam: NORMAL ACCOMODATION, PERRL - ENT Exam ENT Exam: Mucous Membranes Moist, Normal Exam - Respiratory Exam Respiratory Exam: Decreased Breath Sounds, Rhonchi - Cardiovascular Exam Cardiovascular Exam: REGULAR RHYTHM, +S1, +S2. absent: Murmur - GI/Abdominal Exam GI & Abdominal Exam: Soft, Normal Bowel Sounds. absent: Tenderness - Extremities Exam Extremities Exam: Full ROM, Normal Capillary Refill, Normal Inspection. absent : Joint Swelling, Pedal Edema - Back Exam Back Exam: NORMAL INSPECTION - Neurological Exam Neurological Exam: Alert, Awake, CN II-XII Intact, Normal Gait, Oriented x3 Assessment and Plan - Assessment and Plan (Free Text) Assessment: SAME. Plan: RESPIRATORY THERAPY.
--- NOTE | 2018-02-17 12:31 | CP.PCM.PN ---
Subjective - Date & Time of Evaluation Date of Evaluation: 02/17/18 Time of Evaluation: 12:29 - Subjective Subjective: CONDITION SAME. MILD SOB. Objective - Vital Signs/Intake and Output Vital Signs (last 24 hours): Temp Pulse Resp BP Pulse Ox 97.8 F 99 H 20 111/64 93 L 02/17/18 08:16 02/17/18 08:16 02/17/18 08:16 02/17/18 08:16 02/17/18 12:13 Intake and Output: 02/17/18 02/17/18 06:59 18:59 Intake Total 320 Balance 320 - Medications Medications: Current Medications Albuterol/Ipratropium (Duoneb 3 Mg/0.5 Mg (3 Ml) Ud) 3 ml INH RQ6 [facility] Last Admin: 02/17/18 08:24 Dose: 3 ml Amlodipine Besylate (Norvasc) 10 mg PO DAILY [facility] Last Admin: 02/17/18 10:01 Dose: 10 mg Heparin Sodium (Porcine) (Heparin) 5,000 units SC Q12 [facility] Last Admin: 02/17/18 10:00 Dose: 5,000 units Azithromycin 500 mg/ Sodium (Chloride) 250 mls @ 250 mls/hr IVPB Q24H [facility] PRN Reason: Protocol Last Admin: 02/17/18 11:18 Dose: 250 mls/hr Ceftriaxone Sodium 1 gm/ (Sodium Chloride) 100 mls @ 100 mls/hr IVPB DAILY [facility] PRN Reason: Protocol Last Admin: 02/17/18 10:09 Dose: 100 mls/hr Levothyroxine Sodium (Synthroid) 75 mcg PO 0630 [facility] Last Admin: 02/17/18 05:35 Dose: 75 mcg Methylprednisolone (Solu-Medrol) 40 mg IVP Q12H [facility] Pantoprazole Sodium (Protonix Ec Tab) 40 mg PO DAILY [facility] Last Admin: 02/17/18 10:01 Dose: 40 mg Promethazine HCl (Phenergan Syrup) 12.5 mg PO Q4 PRN PRN Reason: Cough Last Admin: 02/17/18 10:01 Dose: 12.5 mg Rosuvastatin Calcium (Crestor) 5 mg PO HS [facility] Last Admin: 02/16/18 21:09 Dose: 5 mg Fluticasone/Salmeterol (Advair Diskus 250/50) 1 puff INH RQ12 [facility] Last Admin: 02/17/18 08:24 Dose: 1 puff - Labs Labs: 02/17/18 07:06 02/17/18 07:06 - Constitutional Appears: Chronically Ill - Eye Exam Eye Exam: EOMI, Normal appearance, PERRL Pupil Exam: NORMAL ACCOMODATION, PERRL - ENT Exam ENT Exam: Mucous Membranes Moist, Normal Exam - Respiratory Exam Respiratory Exam: Clear to Ausculation Bilateral, NORMAL BREATHING PATTERN - Cardiovascular Exam Cardiovascular Exam: REGULAR RHYTHM, +S1, +S2. absent: Murmur - GI/Abdominal Exam GI & Abdominal Exam: Soft, Normal Bowel Sounds. absent: Tenderness - Extremities Exam Extremities Exam: Full ROM, Normal Capillary Refill, Normal Inspection. absent : Joint Swelling, Pedal Edema - Back Exam Back Exam: NORMAL INSPECTION Assessment and Plan - Assessment and Plan (Free Text) Assessment: COPD Plan: FOR RESP TREATMENT.
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
--- NOTE | 2018-02-17 13:18 | CON ---
DATE: HISTORY OF PRESENT ILLNESS: The patient is a 77-year-old female with history of pulmonary sarcosis, admitted to the hospital with shortness of breath, cough, weakness, advised admission. PHYSICAL EXAMINATION: VITAL SIGNS: Temperature is 98, pulse 90. HEENT: Within normal limits. NECK: Supple. CHEST: Symmetrical. HEART: Regular. ABDOMEN: Soft. EXTREMITIES: No edema. ASSESSMENT AND PLAN: . The patient on bed rest, supportive care, bronchodilators. Emerita Rueda MD
[2018-02-18] MEDS: Albuterol-Ipratrop 3 mg / 0.5 (3 ml) UD INH SCH ×4 (01:32→19:23)
[2018-02-18] MEDS: MethylPREDNISolone 40 mg Vial IVP SCH ×2 (05:35→18:48)
[2018-02-18] MEDS: Promethazine 12.5 mg/10 ml Syrup PO PRN ×3 (05:36→21:44)
[2018-02-18] MEDS: Levothyroxine 75 MCG TAB PO SCH (05:40)
[2018-02-18] MEDS: Fluticasone-Salmeterol 250-50mcg Diskus INH SCH ×2 (07:46→19:23)
[2018-02-18 09:51] LABS: TB ANTIGEN MINUS NIL >10.00 IU/mL
[2018-02-18] MEDS: Pantoprazole 40 mg EC Tab PO SCH (10:04)
[2018-02-18] MEDS: Azithromycin 500 MG in Sodium Chloride 0.9% 250 ML IVPB SCH (11:42)
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
--- NOTE | 2018-02-18 13:14 | CP.PCM.PN ---
Subjective - Date & Time of Evaluation Date of Evaluation: 02/18/18 Time of Evaluation: 13:12 - Subjective Subjective: SOB PRESENT. COUGH PRESENT. AFEBRILE. GETTING PT. Objective - Vital Signs/Intake and Output Vital Signs (last 24 hours): Temp Pulse Resp BP Pulse Ox 97.9 F 99 H 20 116/63 96 02/18/18 07:57 02/18/18 07:57 02/18/18 07:57 02/18/18 07:57 02/18/18 11:42 Intake and Output: 02/18/18 02/18/18 06:59 18:59 Intake Total 521 Balance 521 - Medications Medications: Current Medications Albuterol/Ipratropium (Duoneb 3 Mg/0.5 Mg (3 Ml) Ud) 3 ml INH RQ6 [facility] Last Admin: 02/18/18 07:46 Dose: 3 ml Amlodipine Besylate (Norvasc) 10 mg PO DAILY [facility] Last Admin: 02/18/18 10:04 Dose: 10 mg Heparin Sodium (Porcine) (Heparin) 5,000 units SC Q12 [facility] Last Admin: 02/18/18 10:03 Dose: 5,000 units Azithromycin 500 mg/ Sodium (Chloride) 250 mls @ 250 mls/hr IVPB Q24H [facility] PRN Reason: Protocol Last Admin: 02/18/18 11:42 Dose: 250 mls/hr Ceftriaxone Sodium 1 gm/ (Sodium Chloride) 100 mls @ 100 mls/hr IVPB DAILY [facility] PRN Reason: Protocol Last Admin: 02/18/18 10:04 Dose: 100 mls/hr Levothyroxine Sodium (Synthroid) 75 mcg PO 0630 [facility] Last Admin: 02/18/18 05:40 Dose: 75 mcg Methylprednisolone (Solu-Medrol) 40 mg IVP Q12H [facility] Last Admin: 02/18/18 05:35 Dose: 40 mg Pantoprazole Sodium (Protonix Ec Tab) 40 mg PO DAILY [facility] Last Admin: 02/18/18 10:04 Dose: 40 mg Promethazine HCl (Phenergan Syrup) 12.5 mg PO Q4 PRN PRN Reason: Cough Last Admin: 02/18/18 05:36 Dose: 12.5 mg Rosuvastatin Calcium (Crestor) 5 mg PO HS [facility] Last Admin: 03/19/18 21:51 Dose: 5 mg Fluticasone/Salmeterol (Advair Diskus 250/50) 1 puff INH RQ12 [facility] Last Admin: 02/18/18 07:46 Dose: 1 puff - Labs Labs: 02/17/18 07:06 02/17/18 07:06 - Constitutional Appears: No Acute Distress, Chronically Ill - Eye Exam Eye Exam: EOMI, Normal appearance, PERRL Pupil Exam: NORMAL ACCOMODATION, PERRL - ENT Exam ENT Exam: Mucous Membranes Moist, Normal Exam - Neck Exam Neck Exam: Full ROM, Normal Inspection. absent: Lymphadenopathy - Respiratory Exam Respiratory Exam: Decreased Breath Sounds, NORMAL BREATHING PATTERN - Cardiovascular Exam Cardiovascular Exam: REGULAR RHYTHM, +S1, +S2. absent: Murmur - GI/Abdominal Exam GI & Abdominal Exam: Soft, Normal Bowel Sounds. absent: Tenderness - Extremities Exam Extremities Exam: Full ROM, Normal Capillary Refill, Normal Inspection. absent : Joint Swelling, Pedal Edema - Back Exam Back Exam: NORMAL INSPECTION - Neurological Exam Neurological Exam: Alert, Awake, CN II-XII Intact, Normal Gait, Oriented x3 Assessment and Plan - Assessment and Plan (Free Text) Assessment: ACUTE COPD. Plan: CT RESPIRATORY TREATMENT.
[2018-02-19] MEDS: Albuterol-Ipratrop 3 mg / 0.5 (3 ml) UD INH SCH ×5 (01:50→19:10)
[2018-02-19] MEDS: Promethazine 12.5 mg/10 ml Syrup PO PRN ×3 (05:34→18:25)
[2018-02-19] MEDS: Levothyroxine 75 MCG TAB PO SCH (05:34)
[2018-02-19] MEDS: MethylPREDNISolone 40 mg Vial IVP SCH ×2 (05:34→17:41)
[2018-02-19] MEDS: Fluticasone-Salmeterol 250-50mcg Diskus INH SCH ×2 (07:29→19:09)
[2018-02-19] MEDS: Pantoprazole 40 mg EC Tab PO SCH (09:27)
[2018-02-19] MEDS: Azithromycin 500 MG in Sodium Chloride 0.9% 250 ML IVPB SCH (10:50)
--- NOTE | 2018-02-19 12:39 | CP.PCM.PN ---
Subjective - Date & Time of Evaluation Date of Evaluation: 02/19/18 Time of Evaluation: 12:37 - Subjective Subjective: sob +.events noted.diss with dr silvino shrestha. Objective - Vital Signs/Intake and Output Vital Signs (last 24 hours): Temp Pulse Resp BP Pulse Ox 97.5 F L 108 H 20 122/75 93 L 02/19/18 08:00 02/19/18 08:00 02/19/18 08:00 02/19/18 08:00 02/19/18 08:00 Intake and Output: 02/19/18 02/19/18 06:59 18:59 Intake Total 441 Output Total 250 Balance 191 - Medications Medications: Current Medications Albuterol/Ipratropium (Duoneb 3 Mg/0.5 Mg (3 Ml) Ud) 3 ml INH RQ6 [facility] Last Admin: 02/19/18 07:29 Dose: Not Given Amlodipine Besylate (Norvasc) 10 mg PO DAILY [facility] Last Admin: 02/19/18 09:27 Dose: 10 mg Heparin Sodium (Porcine) (Heparin) 5,000 units SC Q12 [facility] Last Admin: 02/19/18 09:27 Dose: 5,000 units Azithromycin 500 mg/ Sodium (Chloride) 250 mls @ 250 mls/hr IVPB Q24H [facility] PRN Reason: Protocol Last Admin: 02/19/18 10:50 Dose: 250 mls/hr Ceftriaxone Sodium 1 gm/ (Sodium Chloride) 100 mls @ 100 mls/hr IVPB DAILY [facility] PRN Reason: Protocol Last Admin: 02/19/18 09:26 Dose: 100 mls/hr Levothyroxine Sodium (Synthroid) 75 mcg PO 0630 [facility] Last Admin: 02/19/18 05:34 Dose: 75 mcg Methylprednisolone (Solu-Medrol) 40 mg IVP Q12H [facility] Last Admin: 02/19/18 05:34 Dose: 40 mg Pantoprazole Sodium (Protonix Ec Tab) 40 mg PO DAILY [facility] Last Admin: 02/19/18 09:27 Dose: 40 mg Promethazine HCl (Phenergan Syrup) 12.5 mg PO Q4 PRN PRN Reason: Cough Last Admin: 02/19/18 09:42 Dose: 12.5 mg Rosuvastatin Calcium (Crestor) 5 mg PO HS [facility] Last Admin: 02/18/18 21:12 Dose: 5 mg Fluticasone/Salmeterol (Advair Diskus 250/50) 1 puff INH RQ12 [facility] Last Admin: 02/19/18 07:29 Dose: Not Given - Labs Labs: 02/17/18 07:06 02/17/18 07:06 - Constitutional Appears: Chronically Ill - Eye Exam Eye Exam: Normal appearance - ENT Exam ENT Exam: Normal Exam - Neck Exam Neck Exam: Normal Inspection - Respiratory Exam Respiratory Exam: Rhonchi, Wheezes - Cardiovascular Exam Cardiovascular Exam: REGULAR RHYTHM - GI/Abdominal Exam GI & Abdominal Exam: Soft - Extremities Exam Extremities Exam: absent: Pedal Edema - Neurological Exam Neurological Exam: Alert, Oriented x3 Assessment and Plan - Assessment and Plan (Free Text) Plan: copd.htn.poss tb.dr iqbal
--- NOTE | 2018-02-19 13:45 | PN ---
DATE: 02/19/2018. SUBJECTIVE: Ms. Reynaga is admitted to the hospital with chief complaint of cough, shortness of breath. Sputum AFB being collected isolation for possible . Emerita Rueda MD
--- NOTE | 2018-02-19 21:48 | CARD ---
APPROVED REPORT EKG Measurement Heart [id number] <Conclusion> Sinus tachycardia Minimal voltage criteria for LVH, may be normal variant Borderline ECG
[2018-02-20] MEDS: Albuterol-Ipratrop 3 mg / 0.5 (3 ml) UD INH SCH ×4 (01:45→20:21)
[2018-02-20] MEDS: MethylPREDNISolone 40 mg Vial IVP SCH ×2 (05:42→17:35)
[2018-02-20] MEDS: Levothyroxine 75 MCG TAB PO SCH (05:43)
[2018-02-20 06:26] LABS: BASO % 0.2 % (0.0-2.0); LYMPH # 0.4 K/uL (1.0-4.3); LYMPH % 3.1 % (20.0-40.0); MEAN CELL VOLUME 82.3 fL (81.0-99.0); MEAN CORPUSCULAR HEMOGLOBIN 27.3 pg (27.0-31.0); MEAN CORPUSCULAR HGB CONC 33.1 g/dL (33.0-37.0); MEAN PLATELET VOLUME 8.1 fL (7.2-11.7); MONO # 0.8 K/uL (0.0-0.8); MONO % 6.1 % (0.0-10.0); NEUT % 90.6 % (50.0-75.0); PLATELET COUNT 222 K/uL (130-400); RBC 4.02 Mil/uL (3.80-5.20); RED CELL DISTRIBUTION WIDTH 13.9 % (11.5-14.5); WHITE BLOOD COUNT 13.2 K/uL (4.8-10.8)
[2018-02-20 07:07] LABS: CALCIUM 9.3 mg/dl (8.6-10.4); GFR AFRICAN-AMERICAN > 60; GFR NON-AFRICAN AMERICAN 53
[2018-02-20 07:40] LABS: BLOOD UREA NITROGEN 23 mg/dL (7-17)
[2018-02-20 08:10] LABS: BANDS 1 % (0-2); LYMPHOCYTE 3 % (20-40); MONOCYTE 5 % (0-10); NEUTROPHIL 91 % (50-75); PLATELET ESTIMATE NORMAL (NORMAL); TOTAL CELLS COUNTED 100
[2018-02-20 08:11] LABS: ANISOCYTOSIS SLIGHT; BURR CELLS SLIGHT; HYPOCHROMIC SLIGHT; POIKILOCYTOSIS SLIGHT; TARGET CELLS SLIGHT; TEARDROP CELLS SLIGHT
[2018-02-20 08:12] LABS: GIANT PLATELETS PRESENT; LARGE PLATELETS PRESENT
[2018-02-20] MEDS: Fluticasone-Salmeterol 250-50mcg Diskus INH SCH ×2 (08:17→20:19)
[2018-02-20] MEDS: Pantoprazole 40 mg EC Tab PO SCH (09:12)
[2018-02-20] MEDS: Promethazine 12.5 mg/10 ml Syrup PO PRN ×2 (11:18→20:59)
[2018-02-20] MEDS: Azithromycin 500 MG in Sodium Chloride 0.9% 250 ML IVPB SCH (11:19)
--- NOTE | 2018-02-20 11:36 | CP.PCM.PN ---
Subjective - Date & Time of Evaluation Date of Evaluation: 02/20/18 Time of Evaluation: 11:34 - Subjective Subjective: sob.await sputum results. Objective - Vital Signs/Intake and Output Vital Signs (last 24 hours): Temp Pulse Resp BP Pulse Ox 97.6 F 90 20 143/77 95 02/20/18 08:00 02/20/18 08:00 02/20/18 08:00 02/20/18 08:00 02/20/18 08:00 Intake and Output: 02/20/18 02/20/18 06:59 18:59 Intake Total 400 360 Balance 400 360 - Medications Medications: Current Medications Albuterol/Ipratropium (Duoneb 3 Mg/0.5 Mg (3 Ml) Ud) 3 ml INH RQ6 [facility] Last Admin: 02/20/18 07:37 Dose: 3 ml Amlodipine Besylate (Norvasc) 10 mg PO DAILY [facility] Last Admin: 02/20/18 09:12 Dose: 10 mg Azithromycin 500 mg/ Sodium (Chloride) 250 mls @ 250 mls/hr IVPB Q24H [facility] PRN Reason: Protocol Last Admin: 02/20/18 11:19 Dose: 250 mls/hr Levothyroxine Sodium (Synthroid) 75 mcg PO 0630 [facility] Last Admin: 02/20/18 05:43 Dose: 75 mcg Methylprednisolone (Solu-Medrol) 40 mg IVP Q12H [facility] Last Admin: 02/20/18 05:42 Dose: 40 mg Pantoprazole Sodium (Protonix Ec Tab) 40 mg PO DAILY [facility] Last Admin: 02/20/18 09:12 Dose: 40 mg Promethazine HCl (Phenergan Syrup) 12.5 mg PO Q4 PRN PRN Reason: Cough Last Admin: 02/20/18 11:18 Dose: 12.5 mg Rosuvastatin Calcium (Crestor) 5 mg PO HS [facility] Last Admin: 02/19/18 21:43 Dose: 5 mg Fluticasone/Salmeterol (Advair Diskus 250/50) 1 puff INH RQ12 [facility] Last Admin: 02/20/18 08:17 Dose: Not Given - Labs Labs: 02/20/18 06:18 02/20/18 06:18 - Constitutional Appears: Chronically Ill - Head Exam Head Exam: NORMOCEPHALIC - Neck Exam Neck Exam: Normal Inspection - Respiratory Exam Respiratory Exam: Rhonchi - Cardiovascular Exam Cardiovascular Exam: Tachycardia, REGULAR RHYTHM - GI/Abdominal Exam GI & Abdominal Exam: Soft - Extremities Exam Extremities Exam: absent: Pedal Edema - Neurological Exam Neurological Exam: Alert, Oriented x3 Assessment and Plan - Assessment and Plan (Free Text) Assessment: copd.htn.poss tb.may need rehab
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
[2018-02-21] MEDS: Albuterol-Ipratrop 3 mg / 0.5 (3 ml) UD INH SCH ×4 (01:06→20:07)
[2018-02-21] MEDS: MethylPREDNISolone 40 mg Vial IVP SCH ×2 (05:26→17:49)
[2018-02-21] MEDS: Levothyroxine 75 MCG TAB PO SCH (05:33)
[2018-02-21] MEDS: Fluticasone-Salmeterol 250-50mcg Diskus INH SCH ×2 (08:13→20:07)
--- NOTE | 2018-02-21 09:53 | CP.PCM.PN ---
Subjective - Date & Time of Evaluation Date of Evaluation: 02/21/18 Time of Evaluation: 09:53 - Subjective Subjective: sob +. Objective - Vital Signs/Intake and Output Vital Signs (last 24 hours): Temp Pulse Resp BP Pulse Ox 98.5 F 110 H 20 115/68 95 02/21/18 07:50 02/21/18 07:50 02/21/18 07:50 02/21/18 07:50 02/21/18 07:50 Intake and Output: 02/21/18 02/21/18 06:59 18:59 Intake Total 490 Balance 490 - Medications Medications: Current Medications Albuterol/Ipratropium (Duoneb 3 Mg/0.5 Mg (3 Ml) Ud) 3 ml INH RQ6 [facility] Last Admin: 02/21/18 08:14 Dose: 3 ml Amlodipine Besylate (Norvasc) 10 mg PO DAILY [facility] Last Admin: 02/20/18 09:12 Dose: 10 mg Azithromycin 500 mg/ Sodium (Chloride) 250 mls @ 250 mls/hr IVPB Q24H [facility] PRN Reason: Protocol Last Admin: 02/20/18 11:19 Dose: 250 mls/hr Levothyroxine Sodium (Synthroid) 75 mcg PO 0630 [facility] Last Admin: 02/21/18 05:33 Dose: 75 mcg Methylprednisolone (Solu-Medrol) 40 mg IVP Q12H [facility] Last Admin: 02/21/18 05:26 Dose: 40 mg Pantoprazole Sodium (Protonix Ec Tab) 40 mg PO DAILY [facility] Last Admin: 02/20/18 09:12 Dose: 40 mg Promethazine HCl (Phenergan Syrup) 12.5 mg PO Q4 PRN PRN Reason: Cough Last Admin: 02/20/18 20:59 Dose: 12.5 mg Rosuvastatin Calcium (Crestor) 5 mg PO HS [facility] Last Admin: 02/20/18 21:18 Dose: 5 mg Fluticasone/Salmeterol (Advair Diskus 250/50) 1 puff INH RQ12 [facility] Last Admin: 02/21/18 08:13 Dose: 1 puff - Labs Labs: 02/20/18 06:18 02/20/18 06:18 - Constitutional Appears: Chronically Ill - Head Exam Head Exam: NORMOCEPHALIC - ENT Exam ENT Exam: Normal Exam - Respiratory Exam Respiratory Exam: Rhonchi - Cardiovascular Exam Cardiovascular Exam: REGULAR RHYTHM - GI/Abdominal Exam GI & Abdominal Exam: Soft - Extremities Exam Extremities Exam: absent: Pedal Edema - Neurological Exam Neurological Exam: Alert, Oriented x3 Assessment and Plan - Assessment and Plan (Free Text) Assessment: copd htn,poss tb.
[2018-02-21] MEDS: Azithromycin 500 MG in Sodium Chloride 0.9% 250 ML IVPB SCH (10:58)
[2018-02-21] MEDS: Pantoprazole 40 mg EC Tab PO SCH (10:58)
--- NOTE | 2018-02-21 14:29 | PN ---
DATE: 02/21/2018. The patient has shortness of breath . No fever, no chills, no night sweats. ____ pulmonary fibrosis, positive QuantiFERON. The patient to use bronchodilators, supportive care. Emerita Rueda MD
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
[2018-02-21] MEDS: Promethazine 12.5 mg/10 ml Syrup PO PRN (21:06)
[2018-02-22] MEDS: Albuterol-Ipratrop 3 mg / 0.5 (3 ml) UD INH SCH ×4 (02:23→19:42)
[2018-02-22] MEDS: Levothyroxine 75 MCG TAB PO SCH (05:53)
[2018-02-22] MEDS: MethylPREDNISolone 40 mg Vial IVP SCH ×2 (05:53→17:41)
[2018-02-22] MEDS: Fluticasone-Salmeterol 250-50mcg Diskus INH SCH ×2 (07:56→19:41)
[2018-02-22] MEDS: Pantoprazole 40 mg EC Tab PO SCH (11:25)
[2018-02-22] MEDS: Promethazine 12.5 mg/10 ml Syrup PO PRN ×2 (11:27→20:49)
[2018-02-22] MEDS: Azithromycin 500 MG in Sodium Chloride 0.9% 250 ML IVPB SCH (11:29)
--- NOTE | 2018-02-22 15:52 | CP.PCM.PN ---
Subjective - Date & Time of Evaluation Date of Evaluation: 02/22/18 Time of Evaluation: 15:51 - Subjective Subjective: sob +.diss with dr iqbal.will start inh. Objective - Vital Signs/Intake and Output Vital Signs (last 24 hours): Temp Pulse Resp BP Pulse Ox 97.8 F 106 H 20 151/74 H 98 02/22/18 07:59 02/22/18 07:59 02/22/18 07:59 02/22/18 07:59 02/22/18 07:59 Intake and Output: 02/22/18 02/22/18 06:59 18:59 Intake Total 300 Balance 300 - Medications Medications: Current Medications Albuterol/Ipratropium (Duoneb 3 Mg/0.5 Mg (3 Ml) Ud) 3 ml INH RQ6 [facility] Last Admin: 02/22/18 13:16 Dose: 3 ml Amlodipine Besylate (Norvasc) 10 mg PO DAILY [facility] Last Admin: 02/22/18 11:25 Dose: 10 mg Azithromycin 500 mg/ Sodium (Chloride) 250 mls @ 250 mls/hr IVPB Q24H [facility] PRN Reason: Protocol Last Admin: 02/22/18 11:29 Dose: 250 mls/hr Isoniazid (Niazid) 300 mg PO DAILY [facility] PRN Reason: Protocol Levothyroxine Sodium (Synthroid) 75 mcg PO 0630 [facility] Last Admin: 02/22/18 05:53 Dose: 75 mcg Methylprednisolone (Solu-Medrol) 40 mg IVP Q12H [facility] Last Admin: 02/22/18 05:53 Dose: 40 mg Pantoprazole Sodium (Protonix Ec Tab) 40 mg PO DAILY [facility] Last Admin: 02/22/18 11:25 Dose: 40 mg Promethazine HCl (Phenergan Syrup) 12.5 mg PO Q4 PRN PRN Reason: Cough Last Admin: 02/22/18 11:27 Dose: 12.5 mg Pyridoxine HCl (Vitamin B6) 100 mg PO DAILY [facility] Rosuvastatin Calcium (Crestor) 5 mg PO HS [facility] Last Admin: 02/21/18 21:07 Dose: 5 mg Fluticasone/Salmeterol (Advair Diskus 250/50) 1 puff INH RQ12 [facility] Last Admin: 02/22/18 07:56 Dose: 1 puff - Labs Labs: 02/20/18 06:18 03/22/18 06:18 - Constitutional Appears: Chronically Ill - Head Exam Head Exam: NORMOCEPHALIC - Neck Exam Neck Exam: Normal Inspection - Respiratory Exam Respiratory Exam: Rhonchi - Cardiovascular Exam Cardiovascular Exam: REGULAR RHYTHM - GI/Abdominal Exam GI & Abdominal Exam: Soft - Extremities Exam Extremities Exam: absent: Pedal Edema - Neurological Exam Neurological Exam: Alert, Oriented x3 Assessment and Plan - Assessment and Plan (Free Text) Assessment: copd with acute exxacerbation.,poss tb.htn.start inh.
[2018-02-22] MEDS: Pyridoxine 100 mg Tab PO SCH (17:00)
[2018-02-23] MEDS: Albuterol-Ipratrop 3 mg / 0.5 (3 ml) UD INH SCH ×5 (01:00→20:31)
[2018-02-23] MEDS: MethylPREDNISolone 40 mg Vial IVP SCH ×2 (05:39→17:33)
[2018-02-23] MEDS: Levothyroxine 75 MCG TAB PO SCH (05:39)
[2018-02-23] MEDS: Promethazine 12.5 mg/10 ml Syrup PO PRN ×3 (07:06→18:11)
[2018-02-23] MEDS: Fluticasone-Salmeterol 250-50mcg Diskus INH SCH ×2 (08:03→20:31)
[2018-02-23] MEDS: Pyridoxine 100 mg Tab PO SCH (09:59)
[2018-02-23] MEDS: Pantoprazole 40 mg EC Tab PO SCH (09:59)
[2018-02-23] MEDS: Azithromycin 500 MG in Sodium Chloride 0.9% 250 ML IVPB SCH (10:01)
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
[2018-02-24] MEDS: Albuterol-Ipratrop 3 mg / 0.5 (3 ml) UD INH SCH ×5 (01:12→19:40)
[2018-02-24] MEDS: MethylPREDNISolone 40 mg Vial IVP SCH ×2 (05:21→18:13)
[2018-02-24] MEDS: Promethazine 12.5 mg/10 ml Syrup PO PRN ×3 (05:23→19:00)
[2018-02-24] MEDS: Levothyroxine 75 MCG TAB PO SCH (05:30)
[2018-02-24] MEDS: Fluticasone-Salmeterol 250-50mcg Diskus INH SCH ×2 (07:47→19:39)
--- NOTE | 2018-02-24 09:01 | RAD ---
HISTORY: low o2 sat. COMPARISON: 02/14/2018 FINDINGS: LUNGS: Patchy bilateral pulmonary opacities, most prominent in the upper right lung and in the mid to lower left lung. This has progressed since the prior examination. PLEURA: No significant pleural effusion identified, no pneumothorax apparent. CARDIOVASCULAR: Normal. OSSEOUS STRUCTURES: No significant abnormalities. VISUALIZED UPPER ABDOMEN: Normal. OTHER FINDINGS: None. IMPRESSION: Bilateral patchy pulmonary opacities common nonspecific. Rule out pneumonia. Rule out pulmonary edema. Follow-up advised.
[2018-02-24 11:20] LABS: BASO % 0.2 % (0.0-2.0); HEMOGLOBIN 11.4 g/dL (11.0-16.0); LYMPH # 0.1 K/uL (1.0-4.3); LYMPH % 0.8 % (20.0-40.0); MEAN CELL VOLUME 82.9 fL (81.0-99.0); MEAN CORPUSCULAR HEMOGLOBIN 26.4 pg (27.0-31.0); MEAN CORPUSCULAR HGB CONC 31.9 g/dL (33.0-37.0); MEAN PLATELET VOLUME 8.5 fL (7.2-11.7); MONO # 0.4 K/uL (0.0-0.8); NEUT # 17.5 K/uL (1.8-7.0); PLATELET COUNT 160 K/uL (130-400); RBC 4.33 Mil/uL (3.80-5.20); WHITE BLOOD COUNT 18.1 K/uL (4.8-10.8)
[2018-02-24] MEDS: Pyridoxine 100 mg Tab PO SCH (11:24)
[2018-02-24] MEDS: Azithromycin 500 MG in Sodium Chloride 0.9% 250 ML IVPB SCH (11:25)
[2018-02-24] MEDS: Pantoprazole 40 mg EC Tab PO SCH (11:25)
[2018-02-24 11:48] LABS: ALBUMIN 3.2 g/dL (3.5-5.0); ALT/SGPT 66 U/L (9-52); AST/SGOT 38 U/L (14-36); BLOOD UREA NITROGEN 27 mg/dL (7-17); CALCIUM 9.7 mg/dl (8.6-10.4); GFR AFRICAN-AMERICAN > 60; GFR NON-AFRICAN AMERICAN 53
[2018-02-24 12:26] LABS: BANDS 1 % (0-2); LYMPHOCYTE 1 % (20-40); NEUTROPHIL 98 % (50-75); PLATELET ESTIMATE NORMAL (NORMAL); TOTAL CELLS COUNTED 100
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
--- NOTE | 2018-02-24 14:56 | CP.PCM.PN ---
Subjective - Date & Time of Evaluation Date of Evaluation: 02/24/18 Time of Evaluation: 14:54 - Subjective Subjective: sob ++. Objective - Vital Signs/Intake and Output Vital Signs (last 24 hours): Temp Pulse Resp BP Pulse Ox 98 F 113 H 23 152/77 H 94 L 02/24/18 08:00 02/24/18 08:00 02/24/18 08:00 02/24/18 08:00 02/24/18 08:00 - Medications Medications: Current Medications Albuterol/Ipratropium (Duoneb 3 Mg/0.5 Mg (3 Ml) Ud) 3 ml INH RQ4 [facility] Amlodipine Besylate (Norvasc) 10 mg PO DAILY [facility] Last Admin: 02/24/18 11:26 Dose: 10 mg Azithromycin 500 mg/ Sodium (Chloride) 250 mls @ 250 mls/hr IVPB Q24H [facility] PRN Reason: Protocol Last Admin: 02/24/18 11:25 Dose: 250 mls/hr Isoniazid (Niazid) 300 mg PO DAILY [facility] PRN Reason: Protocol Last Admin: 02/24/18 11:24 Dose: 300 mg Levothyroxine Sodium (Synthroid) 75 mcg PO 0630 [facility] Last Admin: 02/24/18 05:30 Dose: 75 mcg Methylprednisolone (Solu-Medrol) 40 mg IVP Q12H [facility] Last Admin: 02/24/18 05:21 Dose: 40 mg Pantoprazole Sodium (Protonix Ec Tab) 40 mg PO DAILY [facility] Last Admin: 02/24/18 11:25 Dose: 40 mg Promethazine HCl (Phenergan Syrup) 12.5 mg PO Q4 PRN PRN Reason: Cough Last Admin: 02/24/18 14:54 Dose: 12.5 mg Pyridoxine HCl (Vitamin B6) 100 mg PO DAILY [facility] Last Admin: 02/24/18 11:24 Dose: 100 mg Rosuvastatin Calcium (Crestor) 5 mg PO HS [facility] Last Admin: 02/23/18 21:36 Dose: 5 mg Fluticasone/Salmeterol (Advair Diskus 250/50) 1 puff INH RQ12 [facility] Last Admin: 02/24/18 07:47 Dose: 1 puff - Labs Labs: 02/24/18 11:11 02/24/18 11:11 - Constitutional Appears: In Acute Distress, Chronically Ill - Head Exam Head Exam: NORMOCEPHALIC - Neck Exam Neck Exam: Normal Inspection - Respiratory Exam Respiratory Exam: Rhonchi, Wheezes - Cardiovascular Exam Cardiovascular Exam: Tachycardia, REGULAR RHYTHM - GI/Abdominal Exam GI & Abdominal Exam: Soft - Extremities Exam Extremities Exam: absent: Pedal Edema - Neurological Exam Neurological Exam: Alert, Oriented x3 Assessment and Plan - Assessment and Plan (Free Text) Assessment: copd with acute exxacerbation.hold the d/c
[2018-02-25] MEDS: Albuterol-Ipratrop 3 mg / 0.5 (3 ml) UD INH SCH ×4 (01:13→11:58)
[2018-02-25 01:26] VITALS: RESP 20
[2018-02-25] MEDS: MethylPREDNISolone 40 mg Vial IVP SCH (06:12)
--- NOTE | 2018-02-25 06:22 | PN ---
DATE: The patient with bronchodilator, supportive care, by Dr. Parsons. Emerita Rueda MD
[2018-02-25] MEDS: Levothyroxine 75 MCG TAB PO SCH (06:24)
[2018-02-25 08:13] VITALS: BP 137/64; PULSE 120; TEMP 98.3; O2SAT 96
[2018-02-25 08:33] LABS: BASO % 0.2 % (0.0-2.0); HEMOGLOBIN 11.4 g/dL (11.0-16.0); LYMPH # 0.2 K/uL (1.0-4.3); LYMPH % 0.9 % (20.0-40.0); MEAN CELL VOLUME 82.6 fL (81.0-99.0); MEAN CORPUSCULAR HEMOGLOBIN 27.2 pg (27.0-31.0); MEAN CORPUSCULAR HGB CONC 32.9 g/dL (33.0-37.0); MEAN PLATELET VOLUME 8.7 fL (7.2-11.7); MONO # 0.4 K/uL (0.0-0.8); MONO % 1.8 % (0.0-10.0); NEUT # 20.7 K/uL (1.8-7.0); NEUT % 97.1 % (50.0-75.0); PLATELET COUNT 151 K/uL (130-400); RBC 4.18 Mil/uL (3.80-5.20); WHITE BLOOD COUNT 21.3 K/uL (4.8-10.8)
[2018-02-25] MEDS: Fluticasone-Salmeterol 250-50mcg Diskus INH SCH (08:43)
[2018-02-25 08:57] LABS: BLOOD UREA NITROGEN 26 mg/dL (7-17); GFR AFRICAN-AMERICAN > 60; GFR NON-AFRICAN AMERICAN > 60
[2018-02-25 09:12] LABS: BANDS 3 % (0-2); LYMPHOCYTE 1 % (20-40); MONOCYTE 1 % (0-10); NEUTROPHIL 95 % (50-75); PLATELET ESTIMATE NORMAL (NORMAL); TOTAL CELLS COUNTED 100
[2018-02-25 09:13] LABS: ANISOCYTOSIS SLIGHT; HYPOCHROMIC SLIGHT; OVALOCYTES SLIGHT; POIKILOCYTOSIS SLIGHT
[2018-02-25] MEDS: Promethazine 12.5 mg/10 ml Syrup PO PRN (11:35)
[2018-02-25] MEDS: Azithromycin 500 MG in Sodium Chloride 0.9% 250 ML IVPB SCH (11:35)
[2018-02-25] MEDS: Pantoprazole 40 mg EC Tab PO SCH (11:36)
[2018-02-25] MEDS: Pyridoxine 100 mg Tab PO SCH (11:36)
[2018-02-25] MEDS ORDERED: Pneumococcal 23-Valent Vaccine IM ONE (12:59)
[2018-02-25] MEDS ORDERED: Influenza Vaccine 60 mcg/0.5 mL SYR (4YR UP) IM ONE (13:00)
--- NOTE | 2018-02-25 15:19 | CP.PCM.PN ---
Subjective - Date & Time of Evaluation Date of Evaluation: 02/25/18 Time of Evaluation: 11:00 - Subjective Subjective: awake, alert, follows commands. Has sob and wheezing with exertion. on continuos oxygen. Objective - Vital Signs/Intake and Output Vital Signs (last 24 hours): Temp Pulse Resp BP Pulse Ox 98.3 F 120 H 20 137/64 96 02/25/18 08:00 02/25/18 08:00 02/25/18 08:00 02/25/18 08:00 02/25/18 08:00 Intake and Output: 02/25/18 02/25/18 06:59 18:59 Intake Total 450 Balance 450 - Medications Medications: Current Medications Albuterol/Ipratropium (Duoneb 3 Mg/0.5 Mg (3 Ml) Ud) 3 ml INH RQ4 [facility] Last Admin: 02/25/18 11:58 Dose: 3 ml Amlodipine Besylate (Norvasc) 10 mg PO DAILY [facility] Last Admin: 02/25/18 11:36 Dose: 10 mg Azithromycin 500 mg/ Sodium (Chloride) 250 mls @ 250 mls/hr IVPB Q24H [facility] PRN Reason: Protocol Last Admin: 02/25/18 11:35 Dose: 250 mls/hr Isoniazid (Niazid) 300 mg PO DAILY [facility] PRN Reason: Protocol Last Admin: 02/25/18 11:36 Dose: 300 mg Levothyroxine Sodium (Synthroid) 75 mcg PO 0630 [facility] Last Admin: 02/25/18 06:24 Dose: 75 mcg Methylprednisolone (Solu-Medrol) 40 mg IVP Q12H [facility] Last Admin: 02/25/18 06:12 Dose: 40 mg Pantoprazole Sodium (Protonix Ec Tab) 40 mg PO DAILY [facility] Last Admin: 02/25/18 11:36 Dose: 40 mg Prednisone (Prednisone Tab) 20 mg PO DAILY [facility] Last Admin: 02/25/18 11:36 Dose: 20 mg Promethazine HCl (Phenergan Syrup) 12.5 mg PO Q4 PRN PRN Reason: Cough Last Admin: 02/25/18 11:35 Dose: 12.5 mg Pyridoxine HCl (Vitamin B6) 100 mg PO DAILY [facility] Last Admin: 02/25/18 11:36 Dose: 100 mg Rosuvastatin Calcium (Crestor) 5 mg PO HS [facility] Last Admin: 02/24/18 21:39 Dose: 5 mg Fluticasone/Salmeterol (Advair Diskus 250/50) 1 puff INH RQ12 [facility] Last Admin: 02/25/18 08:43 Dose: 1 puff - Labs Labs: 02/25/18 08:21 02/25/18 08:21 Assessment and Plan - Assessment and Plan (Free Text) Assessment: Patient admitted with COPD exacerbation, pneumonia, noticed with quantiferon gold TB test positive. Started on INH and pyridoxine for [address] Parsons. Seen and examined. Alert , awake, follows commands', has sob with exertion, on oxygen at 2-3 liter via nasal canula. She has oxygen and nebulizer set up at home. Discussed with DR Benavidez, plan to discharge home today on oral steroids. Advised to follow up with the PMD in the office.
--- NOTE | 2018-02-26 10:20 | DS ---
A 77-year-old female who was admitted on 02/14/2018. The patient is being discharged today, 02/25/2018. HISTORY OF PRESENT ILLNESS: A 77-year-old female who was brought in with exacerbation of COPD. She has severe pulmonary fibrosis, hypertension, high cholesterol. Possibility of pneumonia was considered. Gold test for the TB was positive. Sputum for AFB was negative x3. The patient was treated with IV steroids, antibiotics, nebulizer treatment. Her condition has improved somewhat, although her prognosis remains actually poor. She has been closely followed by Dr. Rueda, pulmonary vocational rehab consultant. Not a candidate for pulmonary lung transplant. She has improved now somewhat and will be discharged to be followed as an outpatient. She has home oxygen. MEDICATIONS: Medications at home including Breo, Advair, DuoNeb. She is on Ofev 150 mg twice a day as per Dr. Rueda. She is on prednisone 10 mg p.o. one a day. She is on Protonix 40 mg p.o. one a day. She is also on Synthroid 75 mcg, Lipitor 10 mg once a day, Norvasc 10 mg. At this point, she will see me back in about 2 weeks' time. She will follow up with Dr. Emerita Rueda. FINAL DIAGNOSES: Exacerbation of chronic obstructive pulmonary disease, severe pulmonary fibrosis, hypertension, high cholesterol, hypothyroidism. Care of plan was extended to the patient's family, extremely poor prognosis was explained to the patient and the family. They are aware of this. DISCHARGE DIET: 2 gram sodium. ACTIVITY: As tolerated. Mick Benavidez MD
== END 2018-02-25 16:12 | disposition home or self-care (01) | DRG 190 ==
LOC: C.ER 08:58 → C.9E 11:27 → C.3T 11:53
PROVIDERS: ADMIT Internal Medicine Cardiovascular Disease; ATTEND Internal Medicine Cardiovascular Disease
DX: J44.0 Chronic obstructive pulmonary disease with (acute) lower respiratory infection (principal); J18.9 Pneumonia, unspecified organism; J84.10 Pulmonary fibrosis, unspecified; J44.1 Chronic obstructive pulmonary disease with (acute) exacerbation; E03.9 Hypothyroidism, unspecified; I10 Essential (primary) hypertension; E78.00 Pure hypercholesterolemia, unspecified; Z99.81 Dependence on supplemental oxygen; Z87.01 Personal history of pneumonia (recurrent); V00-Y99 External causes of morbidity

== ENCOUNTER 2018-02-26 08:47 | Inpatient (IN) | payer MEDICAID, MEDICARE ==
--- NOTE | 2018-02-26 09:01 | C.PDOC ---
History Of Present Illness 77 y/o female BIBA for SOB since yesterday, as per EMS apparently POx at home was 77-79% on RA. Patient has h/o pulmonary fibrosis (on 3L home O2), HTN, hypothyroidism, pneumonia; was discharged from [facility] yesterday after admission for pneumonia. She denies chest pain, abdominal pain, nausea/ vomitingh/diarrhea, fever. 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 translating ([employer])) History/Exam Limitations: clinical condition Onset/Duration Of Symptoms: Days (since yesterday ) Exacerbating Factor(s): Exertion Current Respiratory Medications: See Home Med List Past Medical History Reviewed: Historical Data, Nursing Documentation, Vital Signs Vital Signs: Last Vital Signs Temp 98.4 F 02/28/18 04:00 Pulse 107 H 02/28/18 07:44 Resp 31 H 02/28/18 07:10 BP 129/65 02/28/18 07:10 Pulse Ox 97 02/28/18 07:10 - Medical History PMH: COPD, HTN, Hypercholesterolemia, Hypothyroidism, Pneumonia Other PMH: pulmonary fibrosis Family History: States: Other Other Family History: noncontributory - Social History Hx Alcohol Use: No Hx Substance Use: No - Immunization History Hx Tetanus Toxoid Vaccination: No Hx Influenza Vaccination: Yes Hx Pneumococcal Vaccination: No Review Of Systems Review Of Systems: ROS cannot be obtained secondary to pt's inabilty to answer questions. Physical Exam - Physical Exam Appears: Non-toxic, Other (in moderate repsiratory distress ) Eye(s): bilateral: Normal Inspection Oral Mucosa: Moist Cardiovascular: Rhythm Regular (tachycardic ) Respiratory: Accessory Muscle Use (moderate ), Wheezing, Other (right lower lobe rhonchi, scattered expiratory wheezing B/L ) Gastrointestinal/Abdominal: Normal Exam, Bowel Sounds, Soft, No Tenderness Extremity: Normal ROM, No Pedal Edema, No Calf Tenderness Pulses: Left Dorsalis Pedis: Normal, Right Dorsalis Pedis: Normal Neurological/Psych: Oriented x3 ED Course And Treatment - Laboratory Results Result Diagrams: 02/28/18 06:34 02/28/18 06:34 ECG: Interpreted By Me, Viewed By Me (sinus tachycardia 111bpm, normal axis, Q waves III, aVF, no acute ST changes) ECG Interpretation: Abnormal O2 Sat by Pulse Oximetry: 96 (100% FiO2) Pulse Ox Interpretation: Abnormal - Radiology CXR: Viewed By Me, Read By Radiologist (increasing B/L opacities as per radiology) Progress Note: Blood work, CXR, EKG ordered and reviewed. Patient placed on Bipap, given IV solumedrol and nebulizer treatment. CXR shows worsening B/L opacities - pulm firbrosis vs worsening PNA. IV Vanco, Cefepime, Avelox ordered for HCAP. As per pharmacy, Avelox currently backordered - IV Cipro ordered instead. Reevaluation Time: 10:00 Reassessment Condition: Improved (Patient improved, still having mild exp wheezing B/L without accessory muscle use - states she is feeling better.) - Physician Consult Information Physician Contacted: Mick Benavidez Outcome Of Conversation: Discussed patient with PMD, agrees with admission for worsening pneumonia, pulmonary fibrosis, wheezing, leukocytosis., dyspnea. Critical Care Time - Critical Care Note Total Time (in mins): 45 Documented critical care: time excludes all time spent performing seperately billable procedures. Medical Decision Making Medical Decision Making: differential diagnoses considered: pneumonia, COPD/asthma, CHF, PE, AR/ACS, pulmonary fibrosis, bronchitis Disposition - Disposition Disposition: HOSPITALIZED Disposition Time: 10:24 Condition: STABLE - Clinical Impression Clinical Impression: Wheezing, Leukocytosis, Pneumonia, Pulmonary fibrosis, Dyspnea Decision To Admit - Pt Status Changed To: Hospital Disposition Of: Inpatient - Admit Certification Admit to Inpatient:: After my assessment, the patient will require hospitalization for at least two midnights. This is because of the severity of symptoms shown, intensity of services needed, and/or the medical risk in this patient being treated as an outpatient. - InPatient: Physician Admission Certification: I certify that this patient requires 2 or more midnights of care for the following reason:: see notes - . Bed Request Type: Telemetry Admitting Physician: Mick Benavidez Patient Diagnosis: Pulmonary fibrosis, Dyspnea, Wheezing, Pneumonia, Leukocytosis
[2018-02-26] MEDS ORDERED: Albuterol-Ipratrop 3 mg / 0.5 (3 ml) UD INH STA (09:04)
--- NOTE | 2018-02-26 09:20 | RAD ---
PROCEDURE: CHEST RADIOGRAPH, 1 VIEW HISTORY: SOB COMPARISON: Chest radiograph dated 02/23/2018 FINDINGS: LUNGS: Increased confluence of bilateral opacities, predominantly in the right lung and left base. PLEURA: Small left pleural effusion not excluded. CARDIOVASCULAR: Atherosclerotic aortic calcifications. Cardiomediastinal silhouette unchanged. OSSEOUS STRUCTURES: Unchanged. VISUALIZED UPPER ABDOMEN: Normal. OTHER FINDINGS: None. IMPRESSION: Increased confluence of bilateral opacities, predominantly in the right lung and left base.
[2018-02-26 09:26] LABS: BASO % 0.2 % (0.0-2.0); HEMOGLOBIN 11.4 g/dL (11.0-16.0); LYMPH # 0.4 K/uL (1.0-4.3); LYMPH % 1.7 % (20.0-40.0); MEAN CELL VOLUME 82.5 fL (81.0-99.0); MEAN CORPUSCULAR HEMOGLOBIN 26.8 pg (27.0-31.0); MEAN CORPUSCULAR HGB CONC 32.4 g/dL (33.0-37.0); MEAN PLATELET VOLUME 8.2 fL (7.2-11.7); MONO # 0.3 K/uL (0.0-0.8); MONO % 1.4 % (0.0-10.0); NEUT # 22.2 K/uL (1.8-7.0); NEUT % 96.7 % (50.0-75.0); RBC 4.25 Mil/uL (3.80-5.20); RED CELL DISTRIBUTION WIDTH 14.2 % (11.5-14.5); WHITE BLOOD COUNT 22.9 K/uL (4.8-10.8)
[2018-02-26 09:32] LABS: PLATELET COUNT 125 K/uL (130-400)
[2018-02-26 09:38] LABS: INR 1.1; PROTHROMBIN TIME 12.8 SECONDS (9.7-12.2)
[2018-02-26 09:46] LABS: BANDS 8 % (0-2); LYMPHOCYTE 1 % (20-40); MONOCYTE 2 % (0-10); NEUTROPHIL 89 % (50-75); PLATELET ESTIMATE SLIGHTLY DECREASED (NORMAL); TOTAL CELLS COUNTED 100
[2018-02-26 09:51] LABS: ABG ALLEN TEST POS; ARTERIAL BLOOD GAS HCO3 22.8 mmol/L (21-28); ARTERIAL BLOOD GAS O2 SAT 99.4 % (95-98); ARTERIAL BLOOD GAS PCO2 37 mm/Hg (35-45); ARTERIAL BLOOD GAS PH 7.38 (7.35-7.45); ARTERIAL BLOOD GAS PO2 152 mm/Hg (80-100)
[2018-02-26 09:55] LABS: ALB/GLOB RATIO 0.9 (1.0-2.1); ALT/SGPT 67 U/L (9-52); AST/SGOT 76 U/L (14-36); BLOOD UREA NITROGEN 37 mg/dL (7-17); CALCIUM 10.2 mg/dl (8.6-10.4); GFR AFRICAN-AMERICAN 44; GFR NON-AFRICAN AMERICAN 36
[2018-02-26 09:56] LABS: CK-MB 3.99 ng/mL (0.0-3.38)
[2018-02-26] MEDS ORDERED: Vancomycin 1 GM 1 GM/250 ML BAG IV STA (10:03)
[2018-02-26] MEDS ORDERED: Moxifloxacin IV 400mg/250ml NS 400 MG/250 ML BAG IV STA (10:04)
[2018-02-26] MEDS ORDERED: Cefepime 1 GM in Sodium Chloride 0.9% 50 ML IVPB STA (10:04)
[2018-02-26] MEDS ORDERED: Ciprofloxacin 400mg/200ml D5W 400 MG/200 ML BAG IV STA (10:08)
[2018-02-26] MEDS ORDERED: Cefepime IV 1 gm in Dextrose 1 GM/50 ML BAG IVPB STA (10:12)
[2018-02-26 10:29] LABS: B-TYPE NATRIURETIC PEPTIDE 500 pg/mL (0-900)
[2018-02-26] MEDS ORDERED: Vancomycin 1 gm/NS 200 ml 1 GM/200 ML BAG IVPB ONE (10:30)
[2018-02-26] MEDS ORDERED: Sodium Chloride 0.9% 500 ML IV ONE ×2 (10:34→10:40)
[2018-02-26] MEDS ORDERED: Albuterol 0.083% Inhal Sol (2.5 mg/3 mL) UD IH SCH (12:00)
[2018-02-26] MEDS ORDERED: Albuterol 0.083% Inhal Sol (2.5 mg/3 mL) UD IH PRN (12:30)
[2018-02-26] MEDS ORDERED: Ciprofloxacin 400mg/200ml D5W 400 MG/200 ML BAG IV ONE (13:00)
[2018-02-26] MEDS: MethylPREDNISolone 40 mg Vial IVP SCH ×2 (14:33→21:08)
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
[2018-02-26] MEDS: Albuterol 0.083% Inhal Sol (2.5 mg/3 mL) UD IH SCH ×2 (16:15→19:54)
[2018-02-27] MEDS: Albuterol 0.083% Inhal Sol (2.5 mg/3 mL) UD IH SCH ×6 (00:30→19:24)
--- NOTE | 2018-02-27 00:47 | HP ---
HISTORY OF PRESENT ILLNESS: This 77-year-old female was discharged yesterday from [facility]. The patient has a longstanding history of severe pulmonary fibrosis, recently admitted with exacerbation of COPD, had pneumonitis, treated with IV antibiotics. She was seen by Dr. Emerita Rueda for pulmonary consultation and also Dr. Parsons. Possibility of TB was entertained because Gold test for the TB was positive. The patient was recommended INH which was started. Subsequently the patient was discharged yesterday. Critical condition was explained to the patient and the family. Unfortunately, with the severe pulmonary fibrosis, her prognosis remains actually poor. She went home and this morning she got more short of breath. Chest x-ray had shown worsening of pneumonitis and was admitted. PERSONAL HISTORY: Does not smoke. Does not drink. PAST MEDICAL HISTORY: Admitted on many occasions with exacerbation of COPD. FAMILY HISTORY: Negative for premature coronary artery disease. SOCIAL HISTORY: She is , lives with her . ALLERGIES: DENIED. REVIEW OF SYSTEMS: Generalized weakness is noted. No fever. No chills. Cough, nonproductive. Shortness of breath with minimal exertion and at rest. No visual disturbances. No hemoptysis. No hematemesis. No melena. No urinary complaints. No history of TIAs or CVAs. No history of depression. No seizures. No visual disturbances. She does have a history of hypertension and high cholesterol, on medications including amlodipine. PHYSICAL EXAMINATION: GENERAL: Shows elderly female, chronically and acutely sick in mild respiratory distress on a BiPAP. VITAL SIGNS: She is about 5 feet 4 inches and approximate weight is 130 pounds. Blood pressure is 140/70, heart rate of 108 and regular, respiratory rate of 30 and temperature of 98. HEENT: Head is normocephalic. Eyes, no pallor, no icterus. NECK: Supple. LUNGS: Shows diffuse rhonchi and wheeze all over the lung chaidez. HEART: Heart sounds are tachycardiac. No definite gallops or murmurs. ABDOMEN: Soft and nontender. EXTREMITIES: No cyanosis, clubbing or edema. Distal pulses are intact. NEUROLOGICAL: Awake, alert, and oriented x3. LABORATORY DATA: Chest x-ray had shown whitening all over the lung chaidez. CBC shows white count of 23,000. ASSESSMENT: A 77-year-old female with a history of chronic obstructive pulmonary disease with acute exacerbation pneumonitis. PLAN: Pulmonary followup, ID followup and blood cultures. Prognosis remains extremely poor. Mick Benavidez MD
[2018-02-27] MEDS: MethylPREDNISolone 40 mg Vial IVP SCH ×3 (05:41→21:44)
[2018-02-27] MEDS: Levothyroxine 75 MCG TAB PO SCH (05:41)
[2018-02-27 07:47] LABS: BASO % 0.1 % (0.0-2.0); HEMOGLOBIN 10.2 g/dL (11.0-16.0); LYMPH # 0.1 K/uL (1.0-4.3); LYMPH % 0.6 % (20.0-40.0); MEAN CELL VOLUME 83.4 fL (81.0-99.0); MEAN CORPUSCULAR HEMOGLOBIN 26.8 pg (27.0-31.0); MEAN CORPUSCULAR HGB CONC 32.1 g/dL (33.0-37.0); MEAN PLATELET VOLUME 8.3 fL (7.2-11.7); MONO # 0.2 K/uL (0.0-0.8); NEUT # 17.4 K/uL (1.8-7.0); NEUT % 98.3 % (50.0-75.0); RBC 3.81 Mil/uL (3.80-5.20); RED CELL DISTRIBUTION WIDTH 14.2 % (11.5-14.5); WHITE BLOOD COUNT 17.7 K/uL (4.8-10.8)
[2018-02-27 08:02] LABS: PLATELET COUNT 80 K/uL (130-400)
[2018-02-27 08:42] LABS: BANDS 11 % (0-2); MONOCYTE 1 % (0-10); NEUTROPHIL 88 % (50-75); PLATELET ESTIMATE DECREASED (NORMAL); TOTAL CELLS COUNTED 100
[2018-02-27 08:44] LABS: ANISOCYTOSIS SLIGHT; BURR CELLS SLIGHT; HYPOCHROMIC SLIGHT; POIKILOCYTOSIS SLIGHT; TARGET CELLS SLIGHT
[2018-02-27 09:43] LABS: ALB/GLOB RATIO 0.8 (1.0-2.1); ALBUMIN 2.7 g/dL (3.5-5.0); CALCIUM 10.4 mg/dl (8.6-10.4)
[2018-02-27] MEDS ORDERED: Pantoprazole 40 mg EC Tab PO SCH (10:00)
[2018-02-27] MEDS ORDERED: Enoxaparin 40 mg Syringe SC SCH (10:00)
[2018-02-27] MEDS: Pyridoxine 100 mg Tab PO SCH (10:06)
[2018-02-27 10:55] LABS: ABG ALLEN TEST POS; ARTERIAL BLOOD GAS HCO3 22.7 mmol/L (21-28); ARTERIAL BLOOD GAS O2 SAT 98.2 % (95-98); ARTERIAL BLOOD GAS PCO2 37 mm/Hg (35-45); ARTERIAL BLOOD GAS PH 7.38 (7.35-7.45); ARTERIAL BLOOD GAS PO2 77 mm/Hg (80-100)
--- NOTE | 2018-02-27 11:17 | CP.PCM.PN ---
Subjective - Date & Time of Evaluation Date of Evaluation: 02/27/18 Time of Evaluation: 11:15 - Subjective Subjective: sob ++. Objective - Vital Signs/Intake and Output Vital Signs (last 24 hours): Temp Pulse Resp BP Pulse Ox 97.8 F 103 H 20 125/69 98 02/27/18 07:46 02/27/18 07:46 02/27/18 07:46 02/27/18 07:46 02/27/18 07:46 Intake and Output: 02/27/18 02/27/18 06:59 18:59 Intake Total 500 Balance 500 - Medications Medications: Current Medications Albuterol Sulfate (Albuterol 0.083% Inhal Rosa (2.5 Mg/3 Ml) Ud) 2.5 mg IH RQ4 [facility] Last Admin: 02/27/18 07:38 Dose: 2.5 mg Amlodipine Besylate (Norvasc) 10 mg PO DAILY [facility] Last Admin: 02/27/18 10:06 Dose: 10 mg Heparin Sodium (Porcine) (Heparin) 5,000 units SC Q12H [facility] Last Admin: 02/27/18 04:22 Dose: 5,000 units Cefepime HCl 1 gm/ Dextrose 50 mls @ 100 mls/hr IVPB Q8H [facility] PRN Reason: Protocol Last Admin: 02/27/18 08:26 Dose: 100 mls/hr Isoniazid (Niazid) 300 mg PO DAILY [facility] Last Admin: 02/27/18 10:06 Dose: 300 mg Levothyroxine Sodium (Synthroid) 75 mcg PO DAILY@0630 [facility] Last Admin: 02/27/18 05:41 Dose: 75 mcg Methylprednisolone (Solu-Medrol) 40 mg IVP Q8 [facility] Last Admin: 02/27/18 05:41 Dose: 40 mg Pantoprazole Sodium (Protonix Ec Tab) 40 mg PO DAILY [facility] Last Admin: 02/27/18 10:06 Dose: 40 mg Pyridoxine HCl (Vitamin B6) 100 mg PO DAILY [facility] Last Admin: 02/27/18 10:06 Dose: 100 mg Rosuvastatin Calcium (Crestor) 5 mg PO HS [facility] Last Admin: 02/26/18 21:08 Dose: 5 mg - Labs Labs: 02/27/18 07:13 02/27/18 07:13 PT 12.8 SECONDS (9.7-12.2) H 02/26/18 09:22 INR 1.1 02/26/18 09:22 APTT 41 SECONDS (21-34) H 02/26/18 09:22 - Constitutional Appears: In Acute Distress, Chronically Ill - Head Exam Head Exam: NORMOCEPHALIC - Eye Exam Eye Exam: Normal appearance - Respiratory Exam Respiratory Exam: Rhonchi, Wheezes - Cardiovascular Exam Cardiovascular Exam: Tachycardia - GI/Abdominal Exam GI & Abdominal Exam: Soft - Extremities Exam Extremities Exam: absent: Pedal Edema - Neurological Exam Neurological Exam: Alert, Oriented x3 Assessment and Plan - Assessment and Plan (Free Text) Assessment: copd with acute exxacerbation.pneumoinia.htn. diss with family again,explained critical condition.may need intubation.consider dni
--- NOTE | 2018-02-27 14:48 | CARD ---
APPROVED REPORT EKG Measurement Heart [id number] ME [id number] [id number] <Conclusion> Sinus tachycardia Voltage criteria for left ventricular hypertrophy Possible Inferior infarct, age undetermined Abnormal ECG
--- NOTE | 2018-02-27 18:42 | CP.PCM.PN ---
Subjective - Date & Time of Evaluation Date of Evaluation: 02/27/18 Time of Evaluation: 09:00 - Subjective Subjective: cultures pending IV rx ordered need pulm eval Objective - Vital Signs/Intake and Output Vital Signs (last 24 hours): Temp Pulse Resp BP Pulse Ox 99.1 F 120 H 35 H 139/68 93 L 02/27/18 16:19 02/27/18 17:17 02/27/18 16:19 02/27/18 16:19 02/27/18 16:19 Intake and Output: 02/27/18 02/27/18 06:59 18:59 Intake Total 500 250 Balance 500 250 - Medications Medications: Current Medications Albuterol Sulfate (Albuterol 0.083% Inhal Rosa (2.5 Mg/3 Ml) Ud) 2.5 mg IH RQ4 [facility] Last Admin: 02/27/18 17:15 Dose: 2.5 mg Amlodipine Besylate (Norvasc) 10 mg PO DAILY [facility] Last Admin: 02/27/18 10:06 Dose: 10 mg Heparin Sodium (Porcine) (Heparin) 5,000 units SC Q12H [facility] Last Admin: 02/27/18 16:34 Dose: 5,000 units Cefepime HCl 1 gm/ Dextrose 50 mls @ 100 mls/hr IVPB Q8H [facility] PRN Reason: Protocol Last Admin: 02/27/18 08:26 Dose: 100 mls/hr Isoniazid (Niazid) 300 mg PO DAILY [facility] Last Admin: 02/27/18 10:06 Dose: 300 mg Levothyroxine Sodium (Synthroid) 75 mcg PO DAILY@0630 [facility] Last Admin: 02/27/18 05:41 Dose: 75 mcg Methylprednisolone (Solu-Medrol) 40 mg IVP Q8 [facility] Last Admin: 02/27/18 13:36 Dose: 40 mg Pantoprazole Sodium (Protonix Ec Tab) 40 mg PO DAILY [facility] Last Admin: 02/27/18 10:06 Dose: 40 mg Pyridoxine HCl (Vitamin B6) 100 mg PO DAILY [facility] Last Admin: 02/27/18 10:06 Dose: 100 mg Rosuvastatin Calcium (Crestor) 5 mg PO HS [facility] Last Admin: 02/26/18 21:08 Dose: 5 mg - Labs Labs: 02/27/18 07:13 02/27/18 07:13 PT 12.8 SECONDS (9.7-12.2) H 02/26/18 09:22 INR 1.1 02/26/18 09:22 APTT 41 SECONDS (21-34) H 02/26/18 09:22 - Constitutional Appears: Cachectic, Chronically Ill - Head Exam Head Exam: NORMOCEPHALIC - Eye Exam Eye Exam: PERRL - ENT Exam ENT Exam: Mucous Membranes Dry - Neck Exam Neck Exam: absent: Lymphadenopathy - Respiratory Exam Respiratory Exam: Decreased Breath Sounds, Rhonchi - Cardiovascular Exam Cardiovascular Exam: REGULAR RHYTHM, +S1, +S2 - GI/Abdominal Exam GI & Abdominal Exam: Distended, Soft - Rectal Exam Rectal Exam: Deferred Assessment and Plan - Assessment and Plan (Free Text) Assessment: sepsis/ resp failure/ pulm fibrosis/ pneumonia cont iv rx
[2018-02-27] MEDS ORDERED: Vancomycin 1 gm/NS 200 ml 1 GM/200 ML BAG IVPB ONE (19:00)
[2018-02-27] MEDS: guaiFENesin DM 100 mg-10 mg/5 ml UD PO SCH (22:21)
[2018-02-27 23:57] LABS: ABG ALLEN TEST POS; ARTERIAL BLOOD GAS HCO3 16.6 mmol/L (21-28); ARTERIAL BLOOD GAS HEMOGLOBIN 7.5 g/dL (11.7-17.4); ARTERIAL BLOOD GAS O2 SAT 99.6 % (95-98); ARTERIAL BLOOD GAS PCO2 26 mm/Hg (35-45); ARTERIAL BLOOD GAS PH 7.34 (7.35-7.45); ARTERIAL BLOOD GAS PO2 102 mm/Hg (80-100); ARTERIAL BLOOD GAS TCO2 14.8 mmol/L (22-28)
--- NOTE | 2018-02-28 00:19 | PCM.RRT ---
[facility] Nurses Assessment - Situation Date: 02/28/18 Time [facility] was called: 23:43 [facility] Responder Arrival Time:: 11:45 [facility] Location:: Med/Surg [facility] Reason for Call: Respiratory Distress [facility] Called By: RN New IV Insertion Tolerance: Good - Ventilator Settings FIO2 (% Oxygen): 80 - Constitutional Appears: In Acute Distress, Chronically Ill - Respiratory Exam Respiratory Exam: Rales, Respiratory Distress. absent: NORMAL BREATHING PATTERN - Cardiovascular Exam Cardiovascular Exam: Tachycardia, +S1, +S2 Plan - Assessment of Findings&Treatment Plan [facility] was called by RN due to respiratory distress. Patient has history of pulmonary fibrosis and is admitted for pneumonia. Patient is on bipap and settings were adjusted. Patient's initial vitals: B/P 126/60, HR 120, O2 92%. Chest x-ray was ordered. Repeat ABG was ordered. Patient continued to be tachypnic. Patient was transferred to ICU. Repeat vitals: B/P 121/57; HR 118; O2 96% on bipap. Patient's PMD was contacted. Patient's son was contacted.
[2018-02-28] MEDS: Albuterol 0.083% Inhal Sol (2.5 mg/3 mL) UD IH SCH ×5 (00:21→19:35)
[2018-02-28] MEDS ORDERED: Enoxaparin 60 mg Syringe SC STA (00:41)
--- NOTE | 2018-02-28 00:41 | CP.PCM.CON ---
History of Present Illness - History of Present Illness History of Present Illness: 77 F with h/o emphysema, interstitial fibrosis, admitted to hospital 02/14, discharged on 02/25, then returned on 02/26 with worsening sob, cxr showed b/l infiltrate, right > left, and gradual worsening in hospital. [employer] O[employer]ATOR called as patient was sob, tachypnic on BIPAP 10/6 80% and spo2 91%, RR in range of 35-50 , hr 118/min, 130/70, spo2 increased to 100% and bipap to 14/7, vital volume about 400-500. Patient brought down to ICU for worsening sob. Patient is alert and oriented x3 communicates in [place], but mentions speaks Emiliorati better, during [employer]PERATOR son was informed. CXR done show b/l infiltrates, right getting dense in right mid lung zone. PMH as above Meds reviewed, maxipime, vancomycin, solumerol, duoneb, heparin subq Allergies NKDA Family history not contributory Review of Systems - Review of Systems All systems: reviewed and no additional remarkable complaints except (HPI) Past Patient History - Infectious Disease Hx of Infectious Diseases: None - Past Medical History & Family History Past Medical History?: Yes - Past Social History Smoking Status: Never Smoked Alcohol: None Home Situation {Lives}: With Family - CARDIAC Hx Cardiac Disorders: Yes Hx Hypercholesterolemia: Yes Hx Hypertension: Yes - PULMONARY Hx Chronic Obstructive Pulmonary Disease (COPD): Yes - NEUROLOGICAL Hx Neurological Disorder: No - HEENT Hx HEENT Problems: No - RENAL Hx Chronic Kidney Disease: No - ENDOCRINE/METABOLIC Hx Hypothyroidism: Yes - HEMATOLOGICAL/ONCOLOGICAL Hx Blood Disorders: No - INTEGUMENTARY Hx Dermatological Problems: No - MUSCULOSKELETAL/RHEUMATOLOGICAL Hx Falls: No - GASTROINTESTINAL Hx Gastrointestinal Disorders: No - GENITOURINARY/GYNECOLOGICAL Hx Genitourinary Disorders: No - PSYCHIATRIC Hx Substance Use: No - SURGICAL HISTORY Hx Surgeries: Yes Hx Eye Surgery: Yes Hx Tubal Ligation: No - ANESTHESIA Hx Anesthesia: Yes Hx Anesthesia Reactions: No Hx Malignant Hyperthermia: No Has any member of the family had a problem w/ anesthesia?: No Meds Allergies/Adverse Reactions: Allergies Allergy/AdvReac Type Severity Reaction Status Date / Time No Known Allergies Allergy Verified 02/26/18 08:56 - Medications Medications: Current Medications Albuterol Sulfate (Albuterol 0.083% Inhal Rosa (2.5 Mg/3 Ml) Ud) 2.5 mg IH RQ4 [facility] Last Admin: 02/28/18 00:21 Dose: 2.5 mg Amlodipine Besylate (Norvasc) 10 mg PO DAILY [facility] Last Admin: 02/27/18 10:06 Dose: 10 mg Guaifenesin/Dextromethorphan (Robitussin Dm) 5 ml PO QID [facility] Last Admin: 02/27/18 22:21 Dose: 5 ml Heparin Sodium (Porcine) (Heparin) 5,000 units SC Q12H [facility] Last Admin: 02/27/18 16:34 Dose: 5,000 units Cefepime HCl 1 gm/ Dextrose 50 mls @ 100 mls/hr IVPB Q8H [facility] PRN Reason: Protocol Last Admin: 02/27/18 17:30 Dose: 100 mls/hr Isoniazid (Niazid) 300 mg PO DAILY [facility] Last Admin: 02/27/18 10:06 Dose: 300 mg Levothyroxine Sodium (Synthroid) 75 mcg PO DAILY@0630 [facility] Last Admin: 02/27/18 05:41 Dose: 75 mcg Methylprednisolone (Solu-Medrol) 40 mg IVP Q8 [facility] Last Admin: 02/27/18 21:44 Dose: 40 mg Pantoprazole Sodium (Protonix Ec Tab) 40 mg PO DAILY [facility] Last Admin: 02/27/18 10:06 Dose: 40 mg Pyridoxine HCl (Vitamin B6) 100 mg PO DAILY [facility] Last Admin: 02/27/18 10:06 Dose: 100 mg Rosuvastatin Calcium (Crestor) 5 mg PO HS [facility] Last Admin: 02/27/18 21:44 Dose: 5 mg Physical Exam - Additional Findings Additional findings: * HEENT PATRICIA * Neck Supple * Chest tachypnea, minimal coarse rales R> L * CVS borderline tachycardia. * PA soft * Ext no edema * Skin reduced turgor * GLUE COOK awake oriented x3, moving all ext Results - Vital Signs Recent Vital Signs: Last Vital Signs Temp 98.3 F 02/27/18 23:15 Pulse 115 H 02/28/18 00:21 Resp 25 H 02/27/18 23:15 BP 141/61 02/27/18 23:15 Pulse Ox 91 L 02/27/18 23:15 - Labs Result Diagrams: 02/27/18 07:13 03/29/18 07:13 Labs: Laboratory Results - last 24 hr 02/27/18 02/27/18 02/27/18 07:13 07:13 10:50 WBC 17.7 H RBC 3.81 Hgb 10.2 L Hct 31.8 L MCV 83.4 MCH 26.8 L MCHC 32.1 L RDW 14.2 Plt Count 80 L D MPV 8.3 Neut % (Auto) 98.3 H Lymph % (Auto) 0.6 L [place] % (Auto) 1.0 Eos % (Auto) 0.0 Baso % (Auto) 0.1 Neut # (Auto) 17.4 H Lymph # (Auto) 0.1 L [place] # (Auto) 0.2 Eos # (Auto) 0.0 Baso # (Auto) 0.0 Neutrophils % (Manual) 88 H Band Neutrophils % 11 H* Lymphocytes % (Manual) TEST NOT PERFORMED Monocytes % (Manual) 1 Platelet Estimate Decreased L Hypochromasia (manual) Slight Poikilocytosis (manual Slight Anisocytosis (manual) Slight Target Cells Slight [place]ie Cells Slight Puncture Site Rra pCO2 37 pO2 77 L HCO3 22.7 ABG pH 7.38 ABG Total CO2 23.0 ABG O2 Saturation 98.2 H ABG Base Excess -2.8 L ABG Hemoglobin ABG Carboxyhemoglobin POC ABG HHb (Measured) ABG Methemoglobin Brady Test Pos ABG Potassium 3.8 A-a O2 Difference 447.0 Respiratory Index 5.8 Hgb O2 Saturation Glucose 246 H Lactate 1.0 Vent Mode FiO2 80.0 Inspiratory BiPAP 10 Expiratory BiPAP 5 Sodium 144 142.0 Potassium 5.3 H Chloride 111 H 115.0 H Carbon Dioxide 23 Anion Gap 16 BUN 39 H Creatinine 1.1 Est GFR ( Amer) 58 Est GFR (Non-Af Amer) 48 Random Glucose 145 H Calcium 10.4 Ferritin 1090.0 Total Bilirubin 0.6 AST 52 H D ALT 54 H Alkaline Phosphatase 105 Total Protein 6.1 L Albumin 2.7 L Globulin 3.3 Albumin/Globulin Ratio 0.8 L Vitamin B12 616 Folate 12.0 Arterial Blood Potassium 3.8 02/27/18 23:53 WBC RBC Hgb Hct MCV MCH MCHC RDW Plt Count MPV Neut % (Auto) Lymph % (Auto) [place] % (Auto) Eos % (Auto) Baso % (Auto) Neut # (Auto) Lymph # (Auto) [place] # (Auto) Eos # (Auto) Baso # (Auto) Neutrophils % (Manual) Band Neutrophils % Lymphocytes % (Manual) Monocytes % (Manual) Platelet Estimate Hypochromasia (manual) Poikilocytosis (manual Anisocytosis (manual) Target Cells [place] Cells Puncture Site Rr pCO2 26 L pO2 102 H HCO3 16.6 L ABG pH 7.34 L ABG Total CO2 14.8 L ABG O2 Saturation 99.6 H ABG Base Excess -10.7 L ABG Hemoglobin 7.5 L ABG Carboxyhemoglobin 1.7 H POC ABG HHb (Measured) 0.4 ABG Methemoglobin 1.3 Brady Test Pos ABG Potassium A-a O2 Difference 579.0 Respiratory Index 5.7 Hgb O2 Saturation 96.6 Glucose Lactate Vent Mode Bipap FiO2 100.0 Inspiratory BiPAP 14 Expiratory BiPAP 7 Sodium Potassium Chloride Carbon Dioxide Anion Gap BUN Creatinine Est GFR ( Amer) Est GFR (Non-Af Amer) Random Glucose Calcium Ferritin Total Bilirubin AST ALT Alkaline Phosphatase Total Protein Albumin Globulin Albumin/Globulin Ratio Vitamin B12 Folate Arterial Blood Potassium Assessment & Plan - Assessment and Plan (Free Text) Assessment: * Resp distress due to b/l pna on interstitial fibrosis with emphysema, worsening in hospital currently bipap 14/7 100% * Clinical dehydration likely due to poor intake and excessive muscle activity due to sob * Thrombocytopenia Plan: * Continue broad spectrum abx, cefepime, vancomycin, added doxycycline * IVF * Gi/DVT prophylaxis * If worsens or doesn't improved will need to be intuabted due to increased work of breathing * Will try to do CT angio as breathing improves meanwhile, venous doppler, singe dose of lovenox, hydrate * Empiric echo * Family informed by the hospitalist team.
[2018-02-28] MEDS: Sodium Chloride 0.9% 1,000 ML IV SCH ×2 (01:00→11:21)
[2018-02-28] MEDS: MethylPREDNISolone 40 mg Vial IVP SCH ×3 (05:06→23:19)
[2018-02-28] MEDS: Levothyroxine 75 MCG TAB PO SCH (06:05)
[2018-02-28 06:43] LABS: BASO % 0.3 % (0.0-2.0); HEMOGLOBIN 9.1 g/dL (11.0-16.0); LYMPH # 0.1 K/uL (1.0-4.3); LYMPH % 0.7 % (20.0-40.0); MEAN CELL VOLUME 84.4 fL (81.0-99.0); MEAN CORPUSCULAR HEMOGLOBIN 26.9 pg (27.0-31.0); MEAN CORPUSCULAR HGB CONC 31.8 g/dL (33.0-37.0); MEAN PLATELET VOLUME 9.4 fL (7.2-11.7); MONO # 0.1 K/uL (0.0-0.8); MONO % 0.9 % (0.0-10.0); NEUT # 12.6 K/uL (1.8-7.0); NEUT % 98.1 % (50.0-75.0); PLATELET COUNT 49 K/uL (130-400); RBC 3.41 Mil/uL (3.80-5.20); RED CELL DISTRIBUTION WIDTH 14.7 % (11.5-14.5); WHITE BLOOD COUNT 12.8 K/uL (4.8-10.8)
[2018-02-28 06:53] LABS: ALB/GLOB RATIO 0.7 (1.0-2.1); ALBUMIN 2.2 g/dL (3.5-5.0); ALT/SGPT 54 U/L (9-52); AST/SGOT 52 U/L (14-36); BLOOD UREA NITROGEN 38 mg/dL (7-17); CALCIUM 9.2 mg/dl (8.6-10.4); GFR AFRICAN-AMERICAN > 60; GFR NON-AFRICAN AMERICAN 53
--- NOTE | 2018-02-28 06:54 | CP.PCM.PN ---
Subjective - Date & Time of Evaluation Date of Evaluation: 02/28/18 Time of Evaluation: 06:49 - Subjective Subjective: Spoke to the patient, her son, her and about currently being on maximum support and increased work of breathing, worsening pneumonia since the presentation and unable to move her to do any test, hence do prophylactic intubation, get CT done and may need bronch in future as tolerated. Family understood the concern but requested to wait till they come and see her in next couple of hours. I explained to them that we may hold the procedure now, but it is possible during the course of the day she may get tired or pneumonia may get worse to the extent that she may need emergent intubation which can be much riskier then intubating earlier. Family understood and requested waiting till they come in and see her. Objective - Vital Signs/Intake and Output Vital Signs (last 24 hours): Temp Pulse Resp BP Pulse Ox 98.4 F 106 H 17 136/110 H 98 02/28/18 04:00 02/28/18 06:40 02/28/18 06:40 02/28/18 03:16 02/28/18 06:40 Intake and Output: 02/27/18 02/28/18 18:59 06:59 Intake Total 490 1225 Balance 490 1225 - Medications Medications: Current Medications Albuterol Sulfate (Albuterol 0.083% Inhal Rosa (2.5 Mg/3 Ml) Ud) 2.5 mg IH RQ4 [facility] Last Admin: 02/28/18 03:16 Dose: 2.5 mg Amlodipine Besylate (Norvasc) 10 mg PO DAILY [facility] Last Admin: 02/27/18 10:06 Dose: 10 mg Guaifenesin/Dextromethorphan (Robitussin Dm) 5 ml PO QID [facility] Last Admin: 02/27/18 22:21 Dose: 5 ml Heparin Sodium (Porcine) (Heparin) 5,000 units SC Q12H [facility] Last Admin: 02/28/18 05:06 Dose: 5,000 units Cefepime HCl 1 gm/ Dextrose 50 mls @ 100 mls/hr IVPB Q8H [facility] PRN Reason: Protocol Last Admin: 02/28/18 01:29 Dose: 100 mls/hr Doxycycline Hyclate 100 mg/ (Sodium Chloride) 100 mls @ 100 mls/hr IVPB Q12H [facility] PRN Reason: Protocol Last Admin: 02/28/18 00:30 Dose: 100 mls/hr Sodium Chloride (Sodium Chloride 0.9%) 1,000 mls @ 125 mls/hr IV .Q8H [facility] Last Admin: 02/28/18 01:00 Dose: 125 mls/hr Vancomycin/Sodium Chloride (Vancomycin 1 Gm/Ns 200 Ml) 1 gm in 200 mls @ 166.7 mls/hr IVPB Q24H [facility] PRN Reason: Protocol Stop: 03/05/18 19:01 Isoniazid (Niazid) 300 mg PO DAILY [facility] Last Admin: 02/27/18 10:06 Dose: 300 mg Levothyroxine Sodium (Synthroid) 75 mcg PO DAILY@0630 [facility] Last Admin: 02/28/18 06:05 Dose: 75 mcg Methylprednisolone (Solu-Medrol) 40 mg IVP Q8 [facility] Last Admin: 02/28/18 05:06 Dose: 40 mg Pantoprazole Sodium (Protonix Ec Tab) 40 mg PO DAILY [facility] Last Admin: 02/27/18 10:06 Dose: 40 mg Pyridoxine HCl (Vitamin B6) 100 mg PO DAILY [facility] Last Admin: 02/27/18 10:06 Dose: 100 mg Rosuvastatin Calcium (Crestor) 5 mg PO HS [facility] Last Admin: 02/27/18 21:44 Dose: 5 mg - Labs Labs: 02/28/18 06:34 02/27/18 07:13 PT 12.8 SECONDS (9.7-12.2) H 02/26/18 09:22 INR 1.1 02/26/18 09:22 APTT 41 SECONDS (21-34) H 02/26/18 09:22
--- NOTE | 2018-02-28 07:03 | CON ---
DATE: HISTORY OF PRESENT ILLNESS: Ms. Reynaga is a 77-year-old female with a history of longstanding pulmonary fibrosis was brought to the hospital with increasing shortness of breath, weakness, fatigue, and tiredness. The patient has been just relieved for pneumonia. The patient's shortness of breath has become progressively worse, and she came to the ER, advised admission. The patient is a nonsmoker and nondrinker. PHYSICAL EXAMINATION: GENERAL: The patient is awake, alert, and oriented. Short of breath. VITAL SIGNS: Temperature is 98 and pulse is 90. HEENT: Within normal limits. NECK: Supple. CHEST: Symmetrical. HEART: Regular. ABDOMEN: Soft. EXTREMITIES: No edema. ASSESSMENT AND PLAN: The patient suffers from severe pulmonary fibrosis, ____ pneumonia, respiratory failure. Patient getting bed rest, supportive care, BPAP, IV antibiotics. Prognosis is guarded. Emerita Rueda MD
--- NOTE | 2018-02-28 08:06 | RAD ---
HISTORY: Shortness of breath COMPARISON: 02/26/2018. FINDINGS: LUNGS: There is redemonstration of dense consolidation in the right lung and left lower lobe. PLEURA: Again seen are small pleural effusions, no pneumothorax apparent. CARDIOVASCULAR: Normal. OSSEOUS STRUCTURES: No significant abnormalities. VISUALIZED UPPER ABDOMEN: Normal. OTHER FINDINGS: None. IMPRESSION: No significant interval change in dense consolidation in the right lung and left lower lobe. Small pleural effusions.
[2018-02-28 08:22] LABS: BANDS 9 % (0-2); LYMPHOCYTE 1 % (20-40); NEUTROPHIL 90 % (50-75); PLATELET ESTIMATE DECREASED (NORMAL); TOTAL CELLS COUNTED 100
[2018-02-28 08:23] LABS: BURR CELLS SLIGHT
[2018-02-28] MEDS: guaiFENesin DM 100 mg-10 mg/5 ml UD PO SCH ×4 (10:50→21:10)
[2018-02-28] MEDS: Pyridoxine 100 mg Tab PO SCH (11:21)
--- NOTE | 2018-02-28 11:29 | CP.PCM.PN ---
Subjective - Date & Time of Evaluation Date of Evaluation: 02/28/18 Time of Evaluation: 11:25 - Subjective Subjective: sob ++.rtramnsfered to icu early am.now on o2. Objective - Vital Signs/Intake and Output Vital Signs (last 24 hours): Temp Pulse Resp BP Pulse Ox 98.4 F 107 H 28 H 129/65 96 02/28/18 04:00 02/28/18 07:44 02/28/18 10:05 02/28/18 07:10 02/28/18 08:09 Intake and Output: 02/28/18 02/28/18 06:59 18:59 Intake Total 1225 250 Output Total 350 Balance 1225 -100 - Medications Medications: Current Medications Albuterol Sulfate (Albuterol 0.083% Inhal Rosa (2.5 Mg/3 Ml) Ud) 2.5 mg IH RQ4 [facility] Last Admin: 02/28/18 07:47 Dose: 2.5 mg Amlodipine Besylate (Norvasc) 10 mg PO DAILY [facility] Last Admin: 02/27/18 10:06 Dose: 10 mg Famotidine (Pepcid) 20 mg IVP DAILY [facility] Guaifenesin/Dextromethorphan (Robitussin Dm) 5 ml PO QID [facility] Last Admin: 02/27/18 22:21 Dose: 5 ml Heparin Sodium (Porcine) (Heparin) 5,000 units SC Q12H [facility] Last Admin: 02/28/18 05:06 Dose: 5,000 units Cefepime HCl 1 gm/ Dextrose 50 mls @ 100 mls/hr IVPB Q8H [facility] PRN Reason: Protocol Last Admin: 02/28/18 01:29 Dose: 100 mls/hr Doxycycline Hyclate 100 mg/ (Sodium Chloride) 100 mls @ 100 mls/hr IVPB Q12H [facility] PRN Reason: Protocol Last Admin: 02/28/18 00:30 Dose: 100 mls/hr Sodium Chloride (Sodium Chloride 0.9%) 1,000 mls @ 125 mls/hr IV .Q8H [facility] Last Admin: 02/28/18 01:00 Dose: 125 mls/hr Vancomycin/Sodium Chloride (Vancomycin 1 Gm/Ns 200 Ml) 1 gm in 200 mls @ 166.7 mls/hr IVPB Q24H [facility] PRN Reason: Protocol Stop: 03/05/18 19:01 Isoniazid (Niazid) 300 mg PO DAILY [facility] Last Admin: 02/27/18 10:06 Dose: 300 mg Levothyroxine Sodium (Synthroid) 75 mcg PO DAILY@0630 [facility] Last Admin: 02/28/18 06:05 Dose: 75 mcg Methylprednisolone (Solu-Medrol) 40 mg IVP Q8 [facility] Last Admin: 02/28/18 05:06 Dose: 40 mg Pyridoxine HCl (Vitamin B6) 100 mg PO DAILY [facility] Last Admin: 02/27/18 10:06 Dose: 100 mg Rosuvastatin Calcium (Crestor) 5 mg PO HS [facility] Last Admin: 02/27/18 21:44 Dose: 5 mg - Labs Labs: 02/28/18 06:34 02/28/18 06:34 PT 12.8 SECONDS (9.7-12.2) H 02/26/18 09:22 INR 1.1 02/26/18 09:22 APTT 41 SECONDS (21-34) H 02/26/18 09:22 - Constitutional Appears: No Acute Distress, Chronically Ill - Head Exam Head Exam: NORMOCEPHALIC - Neck Exam Neck Exam: Normal Inspection - Respiratory Exam Respiratory Exam: Rhonchi, Wheezes - Cardiovascular Exam Cardiovascular Exam: Tachycardia, REGULAR RHYTHM - GI/Abdominal Exam GI & Abdominal Exam: Soft - Extremities Exam Extremities Exam: absent: Pedal Edema - Neurological Exam Neurological Exam: Alert, Oriented x3 Assessment and Plan - Assessment and Plan (Free Text) Assessment: copd.pul fibrosis.pneumonia,poss tb. echo done shows normal lv systolic function.midly dilated rv with pulmonary systolic pressures of 65 mm of hg. no pericardial effusion. diss with family,multiple members.they want her to transfer her to [facility]. will obtain second opinion from dr zavaleta,who has seen her before.
--- NOTE | 2018-02-28 12:11 | CP.PCM.CON ---
History of Present Illness - History of Present Illness History of Present Illness: Reason for consultation: shortness of breath/respiratory failure 77-year-old female with history off instertitial lung disease, emphysema admitted on 02/14 with worsening shortness of breath. Last night patient was transferred to intensive care unit for respiratory failure and was placed on BiPAP with 100% FiO2. Currently pt is on BiPAP and 100% FiO2 with respiratory rate in the low 30s and saturation 96%. Patient being treated for pneumonia, pulmonary fibrosis and COPD. Meds reviewed, maxipime, vancomycin, solumerol, duoneb, heparin subq Allergies NKDA Family history not contributory Review of Systems - Review of Systems Systems not reviewed;Unavailable: Respiratory Distress (on BIPAP), Other Past Patient History - Infectious Disease Hx of Infectious Diseases: None - Past Medical History & Family History Past Medical History?: Yes - Past Social History Smoking Status: Never Smoked Alcohol: None Home Situation {Lives}: With Family - CARDIAC Hx Hypercholesterolemia: Yes Hx Hypertension: Yes - PULMONARY Hx Chronic Obstructive Pulmonary Disease (COPD): Yes Hx Pneumonia: Yes - NEUROLOGICAL Hx Neurological Disorder: No - HEENT Hx HEENT Problems: No - RENAL Hx Chronic Kidney Disease: No - ENDOCRINE/METABOLIC Hx Hypothyroidism: Yes - HEMATOLOGICAL/ONCOLOGICAL Hx Blood Disorders: No - INTEGUMENTARY Hx Dermatological Problems: No - MUSCULOSKELETAL/RHEUMATOLOGICAL Hx Falls: No - GASTROINTESTINAL Hx Gastrointestinal Disorders: No - GENITOURINARY/GYNECOLOGICAL Hx Genitourinary Disorders: No - PSYCHIATRIC Hx Substance Use: No - SURGICAL HISTORY Hx Surgeries: Yes Hx Eye Surgery: Yes Hx Tubal Ligation: No - ANESTHESIA Hx Anesthesia: Yes Hx Anesthesia Reactions: No Hx Malignant Hyperthermia: No Has any member of the family had a problem w/ anesthesia?: No Meds Allergies/Adverse Reactions: Allergies Allergy/AdvReac Type Severity Reaction Status Date / Time No Known Allergies Allergy Verified 02/26/18 08:56 - Medications Medications: Current Medications Albuterol Sulfate (Albuterol 0.083% Inhal Rosa (2.5 Mg/3 Ml) Ud) 2.5 mg IH RQ4 [facility] Last Admin: 02/28/18 07:47 Dose: 2.5 mg Amlodipine Besylate (Norvasc) 10 mg PO DAILY [facility] Last Admin: 02/28/18 10:50 Dose: 10 mg Famotidine (Pepcid) 20 mg IVP DAILY [facility] Last Admin: 02/28/18 10:50 Dose: 20 mg Guaifenesin/Dextromethorphan (Robitussin Dm) 5 ml PO QID [facility] Last Admin: 02/28/18 10:50 Dose: 5 ml Heparin Sodium (Porcine) (Heparin) 5,000 units SC Q12H [facility] Last Admin: 02/28/18 05:06 Dose: 5,000 units Cefepime HCl 1 gm/ Dextrose 50 mls @ 100 mls/hr IVPB Q8H [facility] PRN Reason: Protocol Last Admin: 02/28/18 10:00 Dose: 100 mls/hr Doxycycline Hyclate 100 mg/ (Sodium Chloride) 100 mls @ 100 mls/hr IVPB Q12H [facility] PRN Reason: Protocol Last Admin: 02/28/18 11:31 Dose: 100 mls/hr Sodium Chloride (Sodium Chloride 0.9%) 1,000 mls @ 125 mls/hr IV .Q8H [facility] Last Admin: 02/28/18 11:21 Dose: 125 mls/hr Vancomycin/Sodium Chloride (Vancomycin 1 Gm/Ns 200 Ml) 1 gm in 200 mls @ 166.7 mls/hr IVPB Q24H [facility] PRN Reason: Protocol Stop: 03/05/18 19:01 Azithromycin 500 mg/ Sodium (Chloride) 250 mls @ 250 mls/hr IVPB DAILY [facility] PRN Reason: Protocol Isoniazid (Niazid) 300 mg PO DAILY [facility] Last Admin: 02/27/18 10:06 Dose: 300 mg Levothyroxine Sodium (Synthroid) 75 mcg PO DAILY@0630 [facility] Last Admin: 02/28/18 06:05 Dose: 75 mcg Methylprednisolone (Solu-Medrol) 40 mg IVP Q6 [facility] Pyridoxine HCl (Vitamin B6) 100 mg PO DAILY [facility] Last Admin: 02/28/18 11:21 Dose: 100 mg Rosuvastatin Calcium (Crestor) 5 mg PO HS [facility] Last Admin: 02/27/18 21:44 Dose: 5 mg Physical Exam - Head Exam Head Exam: ATRAUMATIC, NORMOCEPHALIC - ENT Exam ENT Exam: Mucous Membranes Moist - Neck Exam Neck exam: Positive for: Normal Inspection - Respiratory Exam Respiratory Exam: Rales, Respiratory Distress - Cardiovascular Exam Cardiovascular Exam: REGULAR RHYTHM - GI/Abdominal Exam GI & Abdominal Exam: Normal Bowel Sounds, Soft Results - Vital Signs Recent Vital Signs: Last Vital Signs Temp 98.4 F 02/28/18 04:00 Pulse 107 H 02/28/18 07:44 Resp 28 H 02/28/18 10:05 BP 129/65 02/28/18 07:10 Pulse Ox 96 02/28/18 08:09 - Labs Result Diagrams: 02/28/18 06:34 02/28/18 06:34 Labs: Laboratory Results - last 24 hr 02/27/18 02/27/18 02/28/18 07:13 23:53 06:34 WBC 12.8 H RBC 3.41 L Hgb 9.1 L Hct 28.8 L MCV 84.4 MCH 26.9 L MCHC 31.8 L RDW 14.7 H Plt Count 49 L D MPV 9.4 Neut % (Auto) 98.1 H Lymph % (Auto) 0.7 L [place] % (Auto) 0.9 Eos % (Auto) 0.0 Baso % (Auto) 0.3 Neut # (Auto) 12.6 H Lymph # (Auto) 0.1 L [place] # (Auto) 0.1 Eos # (Auto) 0.0 Baso # (Auto) 0.0 Neutrophils % (Manual) 90 H Band Neutrophils % 9 H Lymphocytes % (Manual) 1 L Monocytes % (Manual) TEST NOT PERFORMED Platelet Estimate Decreased L [place] Cells Slight Puncture Site Rr pCO2 26 L pO2 102 H HCO3 16.6 L ABG pH 7.34 L ABG Total CO2 14.8 L ABG O2 Saturation 99.6 H ABG Base Excess -10.7 L ABG Hemoglobin 7.5 L ABG Carboxyhemoglobin 1.7 H POC ABG HHb (Measured) 0.4 ABG Methemoglobin 1.3 Brady Test Pos A-a O2 Difference 579.0 Respiratory Index 5.7 Hgb O2 Saturation 96.6 Vent Mode Bipap FiO2 100.0 Inspiratory BiPAP 14 Expiratory BiPAP 7 Sodium 144 Potassium 5.3 H Chloride 111 H Carbon Dioxide 23 Anion Gap 16 BUN 39 H Creatinine 1.1 Est GFR ( Amer) 58 Est GFR (Non-Af Amer) 48 Random Glucose 145 H Calcium 10.4 Phosphorus Magnesium Ferritin 1090.0 Total Bilirubin 0.6 AST 52 H D ALT 54 H Alkaline Phosphatase 105 Total Protein 6.1 L Albumin 2.7 L Globulin 3.3 Albumin/Globulin Ratio 0.8 L Vitamin B12 616 Folate 12.0 02/28/18 06:34 WBC RBC Hgb Hct MCV MCH MCHC RDW Plt Count MPV Neut % (Auto) Lymph % (Auto) [place] % (Auto) Eos % (Auto) Baso % (Auto) Neut # (Auto) Lymph # (Auto) [place] # (Auto) Eos # (Auto) Baso # (Auto) Neutrophils % (Manual) Band Neutrophils % Lymphocytes % (Manual) Monocytes % (Manual) Platelet Estimate [place]ie Cells Puncture Site pCO2 pO2 HCO3 ABG pH ABG Total CO2 ABG O2 Saturation ABG Base Excess ABG Hemoglobin ABG Carboxyhemoglobin POC ABG HHb (Measured) ABG Methemoglobin Brady Test A-a O2 Difference Respiratory Index Hgb O2 Saturation Vent Mode FiO2 Inspiratory BiPAP Expiratory BiPAP Sodium 145 Potassium 4.4 Chloride 114 H Carbon Dioxide 22 Anion Gap 13 BUN 38 H Creatinine 1.0 Est GFR ( Amer) > 60 Est GFR (Non-Af Amer) 53 Random Glucose 125 H Calcium 9.2 Phosphorus 4.3 Magnesium 2.3 Ferritin Total Bilirubin 0.4 AST 52 H ALT 54 H Alkaline Phosphatase 105 Total Protein 5.2 L Albumin 2.2 L Globulin 3.0 Albumin/Globulin Ratio 0.7 L Vitamin B12 Folate Assessment & Plan (1) Acute respiratory failure with hypoxemia Status: Acute Comment: Multifactorial. Permanent fibrosis, pneumonia, COPD. Continue IV antibiotics. Legionella mycoplasma titer. Increase IV steroids. Nebulizer treatment. Continue BiPAP for now As family does not want intubation at this point. Case discussed with family at length. Family aware if patient get intubated there is a high chance of not coming off ventilator. (2) Pneumonia Status: Acute (3) Pulmonary fibrosis Status: Acute
--- NOTE | 2018-02-28 13:30 | CP.PCM.CON ---
History of Present Illness - History of Present Illness History of Present Illness: 77 year old female with a history of interstitial lung disease on home oxygen admitted with shortness of breath with thrombocytopenia and anemia. The patients family report she has not had blood problems in the past. She is currently short of breath and on bipap. She has no abnormal bleeding and bruising. She is currently on lovenox and found to have a right soleal DVT. Past medical history: interstitial lung disease Past surgical history: hemorrhoidectomy Family history: Denies hematologic and oncologic problems Social history: Denies tobacco, alcohol, and illicit drug use. Allergies: NKA Review of systems: All remaining review of systems including HEENT, cardiovascular, respiratory, gastrointestinal, genitourinary, musculoskeletal, dermatologic, neurologic, and psychiatric are negative unless mentioned in the HPI. Past Patient History - Infectious Disease Hx of Infectious Diseases: None - Past Medical History & Family History Past Medical History?: Yes - Past Social History Smoking Status: Never Smoked Alcohol: None Home Situation {Lives}: With Family - CARDIAC Hx Hypercholesterolemia: Yes Hx Hypertension: Yes - PULMONARY Hx Chronic Obstructive Pulmonary Disease (COPD): Yes Hx Pneumonia: Yes - NEUROLOGICAL Hx Neurological Disorder: No - HEENT Hx HEENT Problems: No - RENAL Hx Chronic Kidney Disease: No - ENDOCRINE/METABOLIC Hx Hypothyroidism: Yes - HEMATOLOGICAL/ONCOLOGICAL Hx Blood Disorders: No - INTEGUMENTARY Hx Dermatological Problems: No - MUSCULOSKELETAL/RHEUMATOLOGICAL Hx Falls: No - GASTROINTESTINAL Hx Gastrointestinal Disorders: No - GENITOURINARY/GYNECOLOGICAL Hx Genitourinary Disorders: No - PSYCHIATRIC Hx Substance Use: No - SURGICAL HISTORY Hx Surgeries: Yes Hx Eye Surgery: Yes Hx Tubal Ligation: No - ANESTHESIA Hx Anesthesia: Yes Hx Anesthesia Reactions: No Hx Malignant Hyperthermia: No Has any member of the family had a problem w/ anesthesia?: No Meds Allergies/Adverse Reactions: Allergies Allergy/AdvReac Type Severity Reaction Status Date / Time No Known Allergies Allergy Verified 02/26/18 08:56 - Medications Medications: Current Medications Albuterol Sulfate (Albuterol 0.083% Inhal Rosa (2.5 Mg/3 Ml) Ud) 2.5 mg IH RQ4 [facility] Last Admin: 02/28/18 07:47 Dose: 2.5 mg Amlodipine Besylate (Norvasc) 10 mg PO DAILY [facility] Last Admin: 02/28/18 10:50 Dose: 10 mg Famotidine (Pepcid) 20 mg IVP DAILY [facility] Last Admin: 02/28/18 10:50 Dose: 20 mg Guaifenesin/Dextromethorphan (Robitussin Dm) 5 ml PO QID [facility] Last Admin: 02/28/18 10:50 Dose: 5 ml Heparin Sodium (Porcine) (Heparin) 5,000 units SC Q12H [facility] Last Admin: 02/28/18 05:06 Dose: 5,000 units Sodium Chloride (Sodium Chloride 0.9%) 1,000 mls @ 125 mls/hr IV .Q8H [facility] Last Admin: 02/28/18 11:21 Dose: 125 mls/hr Vancomycin/Sodium Chloride (Vancomycin 1 Gm/Ns 200 Ml) 1 gm in 200 mls @ 166.7 mls/hr IVPB Q24H [facility] PRN Reason: Protocol Stop: 03/05/18 19:01 Azithromycin 500 mg/ Sodium (Chloride) 250 mls @ 166.667 mls/hr IVPB DAILY [facility] PRN Reason: Protocol Meropenem 1 gm/ Sodium (Chloride) 100 mls @ 100 mls/hr IVPB Q8 [facility] PRN Reason: Protocol Isoniazid (Niazid) 300 mg PO DAILY [facility] Last Admin: 02/27/18 10:06 Dose: 300 mg Levothyroxine Sodium (Synthroid) 75 mcg PO DAILY@0630 [facility] Last Admin: 02/28/18 06:05 Dose: 75 mcg Methylprednisolone (Solu-Medrol) 40 mg IVP Q6 [facility] Pyridoxine HCl (Vitamin B6) 100 mg PO DAILY [facility] Last Admin: 02/28/18 11:21 Dose: 100 mg Rosuvastatin Calcium (Crestor) 5 mg PO HS [facility] Last Admin: 02/27/18 21:44 Dose: 5 mg Physical Exam - Head Exam Head Exam: ATRAUMATIC - Eye Exam Eye Exam: Normal appearance - ENT Exam ENT Exam: Mucous Membranes Dry - Respiratory Exam Respiratory Exam: Respiratory Distress - Cardiovascular Exam Cardiovascular Exam: +S1, +S2 - GI/Abdominal Exam GI & Abdominal Exam: Normal Bowel Sounds - Extremities Exam Extremities exam: Positive for: pedal edema - Neurological Exam Neurological exam: Oriented x3 - Psychiatric Exam Psychiatric exam: Normal Affect, Normal Mood - Skin Skin Exam: Warm Results - Vital Signs Recent Vital Signs: Last Vital Signs Temp 98.4 F 02/28/18 04:00 Pulse 107 H 02/28/18 07:44 Resp 28 H 02/28/18 10:05 BP 129/65 02/28/18 07:10 Pulse Ox 96 02/28/18 08:09 - Labs Result Diagrams: 02/28/18 06:34 02/28/18 06:34 Labs: Laboratory Results - last 24 hr 02/27/18 02/27/18 02/28/18 07:13 23:53 06:34 WBC 12.8 H RBC 3.41 L Hgb 9.1 L Hct 28.8 L MCV 84.4 MCH 26.9 L MCHC 31.8 L RDW 14.7 H Plt Count 49 L D MPV 9.4 Neut % (Auto) 98.1 H Lymph % (Auto) 0.7 L [place] % (Auto) 0.9 Eos % (Auto) 0.0 Baso % (Auto) 0.3 Neut # (Auto) 12.6 H Lymph # (Auto) 0.1 L [place] # (Auto) 0.1 Eos # (Auto) 0.0 Baso # (Auto) 0.0 Neutrophils % (Manual) 90 H Band Neutrophils % 9 H Lymphocytes % (Manual) 1 L Monocytes % (Manual) TEST NOT PERFORMED Platelet Estimate Decreased L [place] Cells Slight Puncture Site Rr pCO2 26 L pO2 102 H HCO3 16.6 L ABG pH 7.34 L ABG Total CO2 14.8 L ABG O2 Saturation 99.6 H ABG Base Excess -10.7 L ABG Hemoglobin 7.5 L ABG Carboxyhemoglobin 1.7 H POC ABG HHb (Measured) 0.4 ABG Methemoglobin 1.3 Brady Test Pos A-a O2 Difference 579.0 Respiratory Index 5.7 Hgb O2 Saturation 96.6 Vent Mode Bipap FiO2 100.0 Inspiratory BiPAP 14 Expiratory BiPAP 7 Sodium Potassium Chloride Carbon Dioxide Anion Gap BUN Creatinine Est GFR ( Amer) Est GFR (Non-Af Amer) Random Glucose Calcium Phosphorus Magnesium Ferritin 1090.0 Total Bilirubin AST ALT Alkaline Phosphatase Total Protein Albumin Globulin Albumin/Globulin Ratio Vitamin B12 616 Folate 12.0 02/28/18 06:34 WBC RBC Hgb Hct MCV MCH MCHC RDW Plt Count MPV Neut % (Auto) Lymph % (Auto) [place] % (Auto) Eos % (Auto) Baso % (Auto) Neut # (Auto) Lymph # (Auto) [place] # (Auto) Eos # (Auto) Baso # (Auto) Neutrophils % (Manual) Band Neutrophils % Lymphocytes % (Manual) Monocytes % (Manual) Platelet Estimate [place] Cells Puncture Site pCO2 pO2 HCO3 ABG pH ABG Total CO2 ABG O2 Saturation ABG Base Excess ABG Hemoglobin ABG Carboxyhemoglobin POC ABG HHb (Measured) ABG Methemoglobin Brady Test A-a O2 Difference Respiratory Index Hgb O2 Saturation Vent Mode FiO2 Inspiratory BiPAP Expiratory BiPAP Sodium 145 Potassium 4.4 Chloride 114 H Carbon Dioxide 22 Anion Gap 13 BUN 38 H Creatinine 1.0 Est GFR ( Amer) > 60 Est GFR (Non-Af Amer) 53 Random Glucose 125 H Calcium 9.2 Phosphorus 4.3 Magnesium 2.3 Ferritin Total Bilirubin 0.4 AST 52 H ALT 54 H Alkaline Phosphatase 105 Total Protein 5.2 L Albumin 2.2 L Globulin 3.0 Albumin/Globulin Ratio 0.7 L Vitamin B12 Folate Assessment & Plan (1) Thrombocytopenia Assessment and Plan: rule out HIT; will stop lovenox and start on argatroban drip pending results of heparin antibody and serotonin release assay ? infection related; will add fibrinogen to rule out DIC Status: Acute (2) DVT (deep venous thrombosis) Assessment and Plan: ? HIT ? provoked from immobility and recent hospitalization therapeutic anticoagulation Status: Acute (3) Anemia Assessment and Plan: will check ferritin, retic count, b12, folate to further characterize Status: Acute (4) Leukocytosis Assessment and Plan: on antibiotics ?steroid related Status: Acute (5) Coagulopathy Assessment and Plan: rule out DIC; will send fibrinogen ? nutritional Thank you for this interesting consult. Status: Acute
--- NOTE | 2018-02-28 13:53 | VASCLAB ---
PROCEDURE: Lower Extremity Venous Duplex Exam. HISTORY: sob, hypoxia PRIORS: None. TECHNIQUE: Bilateral common femoral, femoral, popliteal and posterior tibial, peroneal and great saphenous veins were evaluated. Flow was assessed with color Doppler, compressibility, assessment of phasic flow and augmentation response. Report prepared by Jermaine Hargrove, MARY, RVT FINDINGS: RIGHT: 1. Common Femoral Vein: 1.1. Compressibility - Fully compressible: Thrombus - None : Flow - Phasic: Augmentation -Normal: Reflux - None. 2. Femoral Vein: 2.1. Compressibility - Fully compressible: Thrombus - None : Flow - Phasic: Augmentation -Normal: Reflux - None. 3. Popliteal Vein: 3.1. Compressibility - Fully compressible: Thrombus - None : Flow - Phasic: Augmentation -Normal: Reflux - None. 4. Posterior Tibial Vein: 4.1. Compressibility - Fully compressible: Thrombus - None: Flow - Phasic: Augmentation -Normal: Reflux - None. 5. Peroneal Vein: 5.1. Compressibility - Fully compressible: Thrombus - None: Flow - Phasic: Augmentation -Normal: Reflux - None. 6. Great Saphenous Vein: 6.1. Compressibility - Fully compressible: Thrombus - None: Flow - Phasic: Augmentation - Normal: Reflux - None. LEFT: 1. Common Femoral Vein: 1.1. Compressibility - Fully compressible: Thrombus - None: Flow - Phasic: Augmentation -Normal: Reflux - None. 2. Femoral Vein: 2.1. Compressibility - Fully compressible: Thrombus - None: Flow - Phasic: Augmentation -Normal: Reflux - None. 3. Popliteal Vein: 3.1. Compressibility - Fully compressible: Thrombus - None : Flow - Phasic: Augmentation -Normal: Reflux - None. 4. Posterior Tibial Vein: 4.1. Compressibility - Fully compressible: Thrombus - None: Flow - Phasic: Augmentation -Normal: Reflux - None. 5. Peroneal Vein: 5.1. Compressibility - Fully compressible: Thrombus - None: Flow - Phasic: Augmentation -Normal: Reflux - None. 6. Great Saphenous Vein: 6.1. Compressibility - Fully compressible: Thrombus - None: Flow - Phasic: Augmentation - Normal: Reflux - None. OTHER FINDINGS: NR [place] notified about the findings. IMPRESSION: Right: Acute thrombosis of the right soleal vein with severe reduction of the venous return. Left: No evidence of deep or superficial vein thrombosis of the left lower extremity. Normal valve function noted of the left side.
[2018-02-28] MEDS: Meropenem 1 GM in Sodium Chloride 0.9% 100 ML IVPB SCH ×2 (14:36→21:00)
[2018-02-28] MEDS: Azithromycin 500 MG in Sodium Chloride 0.9% 250 ML IVPB SCH (14:37)
[2018-02-28 15:32] LABS: SQUAMOUS EPITHIAL < 1 /hpf (0-5); URINE BACTERIA RARE (<OCC); URINE BILIRUBIN NEGATIVE (NEGATIVE); URINE BLOOD 1+ (NEGATIVE); URINE CLARITY Clear (Clear); URINE COLOR Yellow (YELLOW); URINE GLUCOSE (UA) NORMAL (Normal); URINE LEUKOCYTE ESTERASE NEG Leu/uL (Negative); URINE PROTEIN 1+ mg/dL (NEGATIVE); URINE UROBILINOGEN NORMAL mg/dL (0.2-1.0)
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
[2018-02-28] MEDS: Vancomycin 1 gm/NS 200 ml 1 GM/200 ML BAG IVPB SCH (18:31)
[2018-02-28] MEDS ORDERED: Enoxaparin 60 mg Syringe SC SCH (22:00)
[2018-02-28] MEDS ORDERED: Oxycodone/Acetaminophen 5/325 mg Tab PO ONE (23:08)
[2018-03-01] MEDS: Albuterol 0.083% Inhal Sol (2.5 mg/3 mL) UD IH SCH ×4 (00:13→11:34)
[2018-03-01] MEDS: Meropenem 1 GM in Sodium Chloride 0.9% 100 ML IVPB SCH ×3 (06:00→21:30)
[2018-03-01] MEDS: MethylPREDNISolone 40 mg Vial IVP SCH ×3 (06:01→17:54)
[2018-03-01] MEDS: Levothyroxine 75 MCG TAB PO SCH (06:08)
[2018-03-01 06:32] LABS: BASO % 0.2 % (0.0-2.0); HEMOGLOBIN 11.1 g/dL (11.0-16.0); LYMPH # 0.1 K/uL (1.0-4.3); LYMPH % 0.5 % (20.0-40.0); MEAN CELL VOLUME 83.8 fL (81.0-99.0); MEAN CORPUSCULAR HEMOGLOBIN 27.6 pg (27.0-31.0); MEAN CORPUSCULAR HGB CONC 32.9 g/dL (33.0-37.0); MEAN PLATELET VOLUME 9.9 fL (7.2-11.7); MONO # 0.1 K/uL (0.0-0.8); MONO % 0.8 % (0.0-10.0); NEUT # 10.7 K/uL (1.8-7.0); NEUT % 98.5 % (50.0-75.0); NRBC % 0.1 % (0.0-2.0); PLATELET COUNT 67 K/uL (130-400); RBC 4.02 Mil/uL (3.80-5.20); RED CELL DISTRIBUTION WIDTH 14.6 % (11.5-14.5); WHITE BLOOD COUNT 10.9 K/uL (4.8-10.8)
[2018-03-01 06:47] LABS: ALB/GLOB RATIO 0.7 (1.0-2.1); ALBUMIN 2.8 g/dL (3.5-5.0)
[2018-03-01 08:17] LABS: ANISOCYTOSIS SLIGHT; BANDS 21 % (0-2); METAMYELOCYTE 1 % (0-0); MONOCYTE 3 % (0-10); NEUTROPHIL 75 % (50-75); PLATELET ESTIMATE DECREASED (NORMAL); TOTAL CELLS COUNTED 100
[2018-03-01 08:18] LABS: GIANT PLATELETS PRESENT; LARGE PLATELETS PRESENT
[2018-03-01 08:19] LABS: HYPOCHROMIC SLIGHT; POIKILOCYTOSIS SLIGHT
[2018-03-01 08:20] LABS: BURR CELLS SLIGHT; POLYCHROMIC SLIGHT; TOXIC GRANULATION PRESENT
[2018-03-01 08:21] LABS: OVALOCYTES SLIGHT
[2018-03-01] MEDS: guaiFENesin DM 100 mg-10 mg/5 ml UD PO SCH ×3 (11:26→21:09)
[2018-03-01] MEDS: Azithromycin 500 MG in Sodium Chloride 0.9% 250 ML IVPB SCH (11:27)
[2018-03-01] MEDS ORDERED: Morphine 4 MG/ML VIAL IVP STA (12:17)
--- NOTE | 2018-03-01 12:34 | CP.PCM.PN ---
Subjective - Date & Time of Evaluation Date of Evaluation: 03/01/18 Time of Evaluation: 12:32 - Subjective Subjective: very sob.on morphine dip.family members at bed side. Objective - Vital Signs/Intake and Output Vital Signs (last 24 hours): Temp Pulse Resp BP Pulse Ox 98.3 F 117 H 26 H 126/60 88 L 03/01/18 04:00 03/01/18 11:22 03/01/18 11:22 03/01/18 11:22 03/01/18 11:00 Intake and Output: 03/01/18 03/01/18 06:59 18:59 Intake Total 400 1 Output Total 275 65 Balance 125 -64 - Medications Medications: Current Medications Albuterol Sulfate (Albuterol 0.083% Inhal Rosa (2.5 Mg/3 Ml) Ud) 2.5 mg IH RQ4 [facility] Last Admin: 03/01/18 11:34 Dose: Not Given Amlodipine Besylate (Norvasc) 10 mg PO DAILY [facility] Last Admin: 03/01/18 11:26 Dose: Not Given Famotidine (Pepcid) 20 mg IVP DAILY [facility] Last Admin: 03/01/18 11:26 Dose: Not Given Guaifenesin/Dextromethorphan (Robitussin Dm) 5 ml PO QID [facility] Last Admin: 03/01/18 11:26 Dose: Not Given Vancomycin/Sodium Chloride (Vancomycin 1 Gm/Ns 200 Ml) 1 gm in 200 mls @ 166.7 mls/hr IVPB Q24H [facility] PRN Reason: Protocol Stop: 03/05/18 19:01 Last Admin: 02/28/18 18:31 Dose: 166.7 mls/hr Azithromycin 500 mg/ Sodium (Chloride) 250 mls @ 166.667 mls/hr IVPB DAILY [facility] PRN Reason: Protocol Last Admin: 03/01/18 11:27 Dose: Not Given Meropenem 1 gm/ Sodium (Chloride) 100 mls @ 100 mls/hr IVPB Q8 [facility] PRN Reason: Protocol Last Admin: 03/01/18 06:00 Dose: 100 mls/hr Morphine Sulfate 250 mg/ (Sodium Chloride) 250 mls @ 2 mls/hr IV .Q24H [facility]; Protocol PRN Reason: Agitation Last Titration: 03/01/18 11:28 Dose: 3 ml/hr, 3 mls/hr Isoniazid (Niazid) 300 mg PO DAILY [facility] Last Admin: 02/27/18 10:06 Dose: 300 mg Levothyroxine Sodium (Synthroid) 75 mcg PO DAILY@0630 [facility] Last Admin: 03/01/18 06:08 Dose: 75 mcg Methylprednisolone (Solu-Medrol) 40 mg IVP Q6 [facility] Last Admin: 03/01/18 06:01 Dose: 40 mg Morphine Sulfate (Morphine) 2 mg IVP Q2 [facility] PRN Reason: Anxiety Last Admin: 03/01/18 11:25 Dose: 2 mg Pyridoxine HCl (Vitamin B6) 100 mg PO DAILY [facility] Last Admin: 02/28/18 11:21 Dose: 100 mg Rosuvastatin Calcium (Crestor) 5 mg PO HS [facility] Last Admin: 02/28/18 21:10 Dose: 5 mg - Labs Labs: 03/01/18 06:21 03/01/18 06:18 PT 12.8 SECONDS (9.7-12.2) H 02/26/18 09:22 INR 1.1 02/26/18 09:22 APTT 41 SECONDS (21-34) H 02/26/18 09:22 - Constitutional Appears: Toxic, In Acute Distress, Chronically Ill - Head Exam Head Exam: NORMOCEPHALIC - Neck Exam Neck Exam: Normal Inspection - Respiratory Exam Respiratory Exam: Rhonchi, Wheezes - Cardiovascular Exam Cardiovascular Exam: Tachycardia - GI/Abdominal Exam GI & Abdominal Exam: Soft Assessment and Plan - Assessment and Plan (Free Text) Plan: on rebreathing mask.on morphine.family wants supportive care only.
--- NOTE | 2018-03-01 14:26 | CARD ---
APPROVED REPORT EXAM: Two-dimensional and M-mode echocardiogram with Doppler and color Doppler. Other Information Quality : GoodRhythm : INDICATION Dyspnea COPD LIMITED ECHO CHECK LV FUNCTION RISK FACTORS Hypertension Hyperlipidemia Mitral Valve MV E Gctdufba63.4cm/sMV A Owyqsqau897.9cm/sMV CAF15ad E/A ratio0.7MVA (PHT)3.57cm2 TDI E/Lateral E'0.0E/Medial E'0.0 Tricuspid Valve TR Peak [id number]/sTR Peak [id number] LEFT VENTRICLE The left ventricle is normal size. There is normal left ventricular wall thickness. The left ventricular function is normal. The left ventricular ejection fraction is within the normal range. No regional wall motion abnormalities noted. Transmitral Doppler flow pattern is Grade I-abnormal relaxation pattern. No left ventricle thrombus noted on this study. There is no ventricular septal defect visualized. There is no left ventricular aneurysm. There is no mass noted in the left ventricle. RIGHT VENTRICLE The right ventricle is normal size. There is normal right ventricular wall thickness. The right ventricular systolic function is normal. ATRIA The left atrium size is normal. The right atrium size is normal. The interatrial septum is intact with no evidence for an atrial septal defect. AORTIC VALVE The aortic valve is normal in structure and function. No aortic regurgitation is present. There is no aortic valvular stenosis. There is no aortic valvular vegetation. MITRAL VALVE The mitral valve is normal in structure and function. There is no evidence of mitral valve prolapse. There is no mitral valve stenosis. There is no mitral valve regurgitation noted. TRICUSPID VALVE The tricuspid valve is normal in structure and function. There is moderate tricuspid regurgitation. Right ventricular systolic pressure is estimated at greater than 60 mmHg. There is no tricuspid valve prolapse or vegetation. There is no tricuspid valve stenosis. PULMONIC VALVE The pulmonary valve is normal in structure and function. There is no pulmonic valvular regurgitation. There is no pulmonic valvular stenosis. GREAT VESSELS The aortic root is normal in size. The ascending aorta is normal in size. The pulmonary artery is normal. The IVC is normal in size and collapses >50% with inspiration. PERICARDIAL EFFUSION The pericardium appears normal. There is no pleural effusion. <Conclusion> The left ventricular function is normal. The left ventricular ejection fraction is within the normal range. No regional wall motion abnormalities noted. There is moderate tricuspid regurgitation. Right ventricular systolic pressure is estimated at greater than 60 mmHg.
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
--- NOTE | 2018-03-01 17:38 | CP.CCUPN ---
CCU Subjective - Physician Review Events Since Last Encounter (Free Text): Patient 77-year-old female with lung fibrosis admitted with advanced lung disease, and worsening pneumonia. Patient currently DNR. Patient's family is at bedside, and the patient's also at bedside, spoke to the family in detail. Discussed in details. Family wanted comfort care. No aggressive treatment. Started on morphine drip, clinical stable, patient can be discharged to the floor, and possible hospice evaluation CCU Objective - Vital Signs / Intake & Output Intake and Output (Last 8hrs): Intake & Output 03/01/18 03/01/18 03/01/18 06:59 14:59 22:59 Intake Total 300 1 Output Total 200 65 Balance 100 -64 Weight 101 lb 5 oz Intake: IV 1 Intake, IV Amount 200 0 Right Forearm 200 0 Oral 100 0 Output: Urine 200 65 Urethral (Sanchez) 200 65 - Medications Active Medications: Active Medications Generic Name Dose Route Start Last Admin Trade Name Freq PRN Reason Stop Dose Admin Albuterol Sulfate 2.5 mg 02/26/18 16:00 03/01/18 11:34 Albuterol 0.083% Inhal Rosa (2.5 Mg/3 Ml) Ud IH Not Given RQ4 JOSIE Amlodipine Besylate 10 mg 02/27/18 10:00 03/01/18 11:26 Norvasc PO Not Given DAILY JOSIE Famotidine 20 mg 02/28/18 10:00 03/01/18 11:26 Pepcid IVP Not Given DAILY JOSIE Guaifenesin/Dextromethorphan 5 ml 02/27/18 22:00 03/01/18 16:45 Robitussin Dm PO Not Given QID JOSIE Vancomycin/Sodium Chloride 1 gm in 200 mls @ 166.7 mls/hr 02/28/18 19:00 18:31 Vancomycin 1 Gm/Ns 200 Ml IVPB 03/05/18 19:01 166.7 mls/hr Q24H JOSIE Administration Protocol Azithromycin 500 mg/ Sodium 250 mls @ 166.667 mls/hr 02/28/18 12:15 03/01/18 11:27 Chloride IVPB Not Given DAILY JOSIE Protocol Meropenem 1 gm/ Sodium 100 mls @ 100 mls/hr 02/28/18 14:00 03/01/18 06:00 Chloride IVPB 100 mls/hr Q8 JOSIE Administration Protocol Morphine Sulfate 250 mg/ 250 mls @ 2 mls/hr 03/01/18 10:44 03/01/18 11:28 Sodium Chloride IV 3 ml/hr .Q24H PRN 3 mls/hr Agitation Titration Protocol Isoniazid 300 mg 02/27/18 10:00 02/27/18 10:06 Niazid PO 300 mg DAILY JOSIE Administration Levothyroxine Sodium 75 mcg 02/27/18 06:30 03/01/18 06:08 Synthroid PO 75 mcg DAILY@0630 JOSIE Administration Methylprednisolone 40 mg 02/28/18 18:00 03/01/18 06:01 Solu-Medrol IVP 40 mg Q6 JOSIE Administration Morphine Sulfate 2 mg 03/01/18 10:25 03/01/18 11:25 Morphine IVP 2 mg Q2 PRN Administration Anxiety Pyridoxine HCl 100 mg 02/27/18 10:00 02/28/18 11:21 Vitamin B6 PO 100 mg DAILY JOSIE Administration Rosuvastatin Calcium 5 mg 02/26/18 22:00 02/28/18 21:10 Crestor PO 5 mg HS JOSIE Administration - Patient Studies Lab Studies: Microbiology Studies 02/26/18 09:50 Blood Culture - Preliminary Blood NO GROWTH AFTER 3 DAYS 02/26/18 09:10 Blood Culture - Preliminary Blood NO GROWTH AFTER 3 DAYS 02/28/18 Unknown Urine Culture - Final Urine,Sanchez No Growth (<1,000 CFU/ML) 02/28/18 00:27 MRSA Culture (Admit) - Final Naris MRSA NOT DETECTED Lab Studies 03/01/18 03/01/18 03/01/18 Range/Units 06:21 06:21 06:18 WBC 10.9 H (4.8-10.8) K/uL RBC 4.02 (3.80-5.20) Mil/uL Hgb 11.1 D (11.0-16.0) g/dL Hct 33.7 L (34.0-47.0) % MCV 83.8 (81.0-99.0) fL MCH 27.6 (27.0-31.0) pg MCHC 32.9 L (33.0-37.0) g/dL RDW 14.6 H (11.5-14.5) % Plt Count 67 L (130-400) K/uL MPV 9.9 (7.2-11.7) fL Neut % (Auto) 98.5 H (50.0-75.0) % Lymph % (Auto) 0.5 L (20.0-40.0) % [place] % (Auto) 0.8 (0.0-10.0) % Eos % (Auto) 0.0 (0.0-4.0) % Baso % (Auto) 0.2 (0.0-2.0) % Neut # (Auto) 10.7 H (1.8-7.0) K/uL Lymph # (Auto) 0.1 L (1.0-4.3) K/uL [place] # (Auto) 0.1 (0.0-0.8) K/uL Eos # (Auto) 0.0 (0.0-0.7) K/uL Baso # (Auto) 0.0 (0.0-0.2) K/uL Neutrophils % (Manual) 75 (50-75) % Band Neutrophils % 21 H* (0-2) % Lymphocytes % (Manual) TEST NOT PERFORMED Monocytes % (Manual) 3 (0-10) % Metamyelocytes % 1 H (0-0) % Toxic Granulation Present Platelet Estimate Decreased L (NORMAL) Large Platelets Present Giant Platelets Present Polychromasia Slight Hypochromasia (manual) Slight Poikilocytosis (manual Slight Anisocytosis (manual) Slight Ovalocytes Slight [place] Cells Slight Fibrinogen 971 H (200-400) mg/dL Sodium 149 H (132-148) mmol/L Potassium 5.6 H (3.6-5.2) mmol/L Chloride 116 H (98-107) mmol/L Carbon Dioxide 22 (22-30) mmol/L Anion Gap 17 (10-20) BUN 59 H (7-17) mg/dL Creatinine 1.4 H (0.7-1.2) mg/dL Est GFR ( Amer) 44 Est GFR (Non-Af Amer) 36 Random Glucose 135 H (65-105) mg/dL Calcium 10.0 (8.6-10.4) mg/dl Phosphorus 6.3 H (2.5-4.5) mg/dL Magnesium 2.6 H (1.6-2.3) mg/dL Total Bilirubin 1.1 (0.2-1.3) mg/dL AST 106 H D (14-36) U/L ALT 61 H (9-52) U/L Alkaline Phosphatase 129 H D (38-126) U/L Total Protein 6.7 (6.3-8.3) g/dL Albumin 2.8 L D (3.5-5.0) g/dL Globulin 3.9 (2.2-3.9) gm/dL Albumin/Globulin Ratio 0.7 L (1.0-2.1) Laboratory Results - last 24 hr 03/01/18 03/01/18 03/01/18 06:18 06:21 06:21 WBC 10.9 H RBC 4.02 Hgb 11.1 D Hct 33.7 L MCV 83.8 MCH 27.6 MCHC 32.9 L RDW 14.6 H Plt Count 67 L MPV 9.9 Neut % (Auto) 98.5 H Lymph % (Auto) 0.5 L [place] % (Auto) 0.8 Eos % (Auto) 0.0 Baso % (Auto) 0.2 Neut # (Auto) 10.7 H Lymph # (Auto) 0.1 L [place] # (Auto) 0.1 Eos # (Auto) 0.0 Baso # (Auto) 0.0 Neutrophils % (Manual) 75 Band Neutrophils % 21 H* Lymphocytes % (Manual) TEST NOT PERFORMED Monocytes % (Manual) 3 Metamyelocytes % 1 H Toxic Granulation Present Platelet Estimate Decreased L Large Platelets Present Giant Platelets Present Polychromasia Slight Hypochromasia (manual) Slight Poikilocytosis (manual Slight Anisocytosis (manual) Slight Ovalocytes Slight [place] Cells Slight Fibrinogen 971 H Sodium 149 H Potassium 5.6 H Chloride 116 H Carbon Dioxide 22 Anion Gap 17 BUN 59 H Creatinine 1.4 H Est GFR ( Amer) 44 Est GFR (Non-Af Amer) 36 Random Glucose 135 H Calcium 10.0 Phosphorus 6.3 H Magnesium 2.6 H Total Bilirubin 1.1 AST 106 H D ALT 61 H Alkaline Phosphatase 129 H D Total Protein 6.7 Albumin 2.8 L D Globulin 3.9 Albumin/Globulin Ratio 0.7 L Critical Care Progress Note - Nutrition Nutrition: Nutrition Category Date Time Status Regular Diet [DIET] Diets 02/26/18 Lunch Active
[2018-03-01] MEDS: Vancomycin 1 gm/NS 200 ml 1 GM/200 ML BAG IVPB SCH (18:03)
--- NOTE | 2018-03-01 20:32 | CP.PCM.PN ---
Subjective - Date & Time of Evaluation Date of Evaluation: 03/01/18 Time of Evaluation: 16:00 - Subjective Subjective: Appears fatigued For comfort care and hospice evaluation family at bedside Objective - Vital Signs/Intake and Output Vital Signs (last 24 hours): Temp Pulse Resp BP Pulse Ox 98.1 F 69 9 L 86/29 L 79 L 03/01/18 18:00 03/01/18 20:00 03/01/18 20:00 03/01/18 19:42 03/01/18 20:00 Intake and Output: 03/01/18 03/02/18 18:59 06:59 Intake Total 45 Output Total 265 Balance -220 - Medications Medications: Current Medications Albuterol Sulfate (Albuterol 0.083% Inhal Rosa (2.5 Mg/3 Ml) Ud) 2.5 mg IH RQ4 [facility] Last Admin: 03/01/18 11:34 Dose: Not Given Amlodipine Besylate (Norvasc) 10 mg PO DAILY JOSIE Last Admin: 03/01/18 11:26 Dose: Not Given Famotidine (Pepcid) 20 mg IVP DAILY JOSIE Last Admin: 03/01/18 11:26 Dose: Not Given Guaifenesin/Dextromethorphan (Robitussin Dm) 5 ml PO QID JOSIE Last Admin: 03/01/18 16:45 Dose: Not Given Vancomycin/Sodium Chloride (Vancomycin 1 Gm/Ns 200 Ml) 1 gm in 200 mls @ 166.7 mls/hr IVPB Q24H JOSIE PRN Reason: Protocol Stop: 03/05/18 19:01 Last Admin: 03/01/18 18:03 Dose: 166.7 mls/hr Azithromycin 500 mg/ Sodium (Chloride) 250 mls @ 166.667 mls/hr IVPB DAILY JOSIE PRN Reason: Protocol Last Admin: 03/01/18 11:27 Dose: Not Given Meropenem 1 gm/ Sodium (Chloride) 100 mls @ 100 mls/hr IVPB Q8 JOSIE PRN Reason: Protocol Last Admin: 03/01/18 13:53 Dose: 100 mls/hr Morphine Sulfate 250 mg/ (Sodium Chloride) 250 mls @ 2 mls/hr IV .Q24H PRN; Protocol PRN Reason: Agitation Last Titration: 03/01/18 12:30 Dose: 5 mls/hr Isoniazid (Niazid) 300 mg PO DAILY [facility] Last Admin: 02/27/18 10:06 Dose: 300 mg Levothyroxine Sodium (Synthroid) 75 mcg PO DAILY@0630 [facility] Last Admin: 03/01/18 06:08 Dose: 75 mcg Methylprednisolone (Solu-Medrol) 40 mg IVP Q6 [facility] Last Admin: 03/01/18 17:54 Dose: 40 mg Morphine Sulfate (Morphine) 2 mg IVP Q2 PRN PRN Reason: Anxiety Last Admin: 03/01/18 11:25 Dose: 2 mg Pyridoxine HCl (Vitamin B6) 100 mg PO DAILY [facility] Last Admin: 02/28/18 11:21 Dose: 100 mg Rosuvastatin Calcium (Crestor) 5 mg PO HS [facility] Last Admin: 02/28/18 21:10 Dose: 5 mg - Labs Labs: 03/01/18 06:21 03/01/18 06:18 PT 12.8 SECONDS (9.7-12.2) H 02/26/18 09:22 INR 1.1 02/26/18 09:22 APTT 41 SECONDS (21-34) H 02/26/18 09:22 - Head Exam Head Exam: ATRAUMATIC - Eye Exam Eye Exam: Normal appearance - ENT Exam ENT Exam: Mucous Membranes Dry - Respiratory Exam Respiratory Exam: NORMAL BREATHING PATTERN - Cardiovascular Exam Cardiovascular Exam: +S1, +S2 - GI/Abdominal Exam GI & Abdominal Exam: Normal Bowel Sounds - Extremities Exam Extremities Exam: Pedal Edema Assessment and Plan (1) Thrombocytopenia Status: Acute (2) DVT (deep venous thrombosis) Status: Acute (3) Anemia Status: Acute (4) Leukocytosis Status: Acute (5) Coagulopathy Status: Acute
[2018-03-01 22:04] VITALS: BP 49/23; PULSE 41; RESP 13; O2SAT 72
[2018-03-01 22:05] VITALS: TEMP 98
[2018-03-02] MEDS: MethylPREDNISolone 40 mg Vial IVP SCH
--- NOTE | 2018-03-03 08:01 | PN ---
DATE: The patient short of breath, BiPAP and has got morphine drip Emerita Rueda MD
--- NOTE | 2018-03-04 06:37 | DS ---
EXPIRATION SUMMARY Admission on 02/26/2018. The patient on 03/02/2018. HOSPITAL COURSE: A 77-year-old female with history of hypertension, severe pulmonary fibrosis, was brought in with exacerbation of COPD. She was found to have pneumonitis. She was treated with IV steroids, antibiotics. She was seen by [facility] consultant, Dr. Emerita Rueda, and for second opinion, she was seen by Dr. Mcintosh. ID consultation was obtained with Dr. Parsons. Possibility of TB was considered, and she was on INH. Echocardiogram showed normal LV systolic function, mild RV dilatation with pulmonary artery systolic pressure of 65 mmHg. The patient got deteriorated, was transferred to ICU. Care of plan was explained at length with multiple family members including and many other members of the family by myself and two pulmonary physicians and critical care physicians. The patient and the family decided about DNR/DNI. The patient was placed on morphine drip. Finally she on 03/02/2018. FINAL DIAGNOSES: Exacerbation of chronic obstructive pulmonary disease, severe pulmonary fibrosis, pneumonitis, hypertension. Mick Benavidez MD
== END 2018-03-02 02:10 | DRG 871 ==
LOC: C.ER 08:47 → C.5S 10:24 → C.9I 02-28 00:21
PROVIDERS: ADMIT Internal Medicine Cardiovascular Disease; ATTEND Internal Medicine Cardiovascular Disease
PROC: 5A09457 Assistance with Respiratory Ventilation, 24-96 Consecutive Hours, Continuous Positive Airway Pressure (ICD-10-PCS; principal; 2018-02-26)
DX: A41.9 Sepsis, unspecified organism (principal); J96.01 Acute respiratory failure with hypoxia; J18.9 Pneumonia, unspecified organism; J44.1 Chronic obstructive pulmonary disease with (acute) exacerbation; J44.0 Chronic obstructive pulmonary disease with (acute) lower respiratory infection; I10 Essential (primary) hypertension; E86.0 Dehydration; E03.9 Hypothyroidism, unspecified; D69.6 Thrombocytopenia, unspecified; J84.10 Pulmonary fibrosis, unspecified; Z66 Do not resuscitate; Z99.81 Dependence on supplemental oxygen; Z51.5 Encounter for palliative care; E78.00 Pure hypercholesterolemia, unspecified